=== PATIENT | male | born 1965 | race Caucasian/White ===

== ENCOUNTER 2017-05-14 15:04 | Inpatient (IN) | payer SELFPAY ==
[2017-05-14] MEDS ORDERED: ASPIRIN 81 MG CHEWABLE TABLETS PO ONE (15:10)
[2017-05-14 15:11] VITALS: BMI 30.8
--- NOTE | 2017-05-14 15:11 | PDOC ---
Rapid Medical Evaluation Time Seen by Provider: 05/14/17 15:06 Medical Evaluation: 05/14/17 15:06 I have performed a brief in-person evaluation of this patient. The patient presents with a chief complaint of: neck pain down to arm x "last couple days", chest hurting today, felt weak "couldn't get out of truck", SOB x 1 month Pertinent physical exam findings: uncomfortable appearing, pain with movement to arm I have ordered the following: EKG, labs The patient will proceed to the ED for further evaluation. Discharge Disposition - Diagnosis Chest pain - Referrals - Patient Instructions - Post Discharge Activity
[2017-05-14] MEDS ORDERED: ASPIRIN 81 MG CHEWABLE TABLETS ONE (15:23)
--- NOTE | 2017-05-14 16:29 | EKG ---
Test Reason : Blood Pressure : / mmHG Vent. Rate : 078 BPM Atrial Rate : 078 BPM P-R Int : 130 ms QRS Dur : 150 ms QT Int : 438 ms P-R-T Axes : 047 058 075 degrees QTc Int : 499 ms NORMAL SINUS RHYTHM LEFT BUNDLE BRANCH BLOCK ABNORMAL ECG NO PREVIOUS ECGS AVAILABLE Confirmed by MD Martin, Branden ([id number]) on 05/14/2017 4:28:59 PM Referred By: Confirmed By:Branden Salazar MD
[2017-05-14 16:50] LABS: BASO % 0.4 % (0-2.0); EOS % 0.7 % (0-4.5); HEMATOCRIT 48.8 % (35.4-49); HEMOGLOBIN 16.3 GM/dL (11.7-16.9); LYMPH % 28.4 % (8-40); MCH 31.4 pg (25.7-33.7); MCHC 33.5 g/dl (32.0-35.9); MEAN CELL VOLUME 93.8 fl (80-96); MEAN PLT VOLUME 10.3 fl (7.5-11.1); MONO % 9.2 % (3.8-10.2); NEUT % 61.3 % (42.8-82.8); PLATELET COUNT 246 K/MM3 (134-434); WHITE BLOOD COUNT 12.6 K/mm3 (4.0-10.0)
[2017-05-14 17:02] LABS: INR 1.09 (0.82-1.09); PROTHROMBIN TIME (PATIENT) 12.3 SEC (9.98-11.88)
[2017-05-14 17:15] LABS: CHLORIDE 103 mmol/L (98-107); SODIUM 138 mmol/L (136-145)
[2017-05-14 17:24] LABS: ALK PHOS 72 U/L (45-117); ANION GAP 11 (8-16); BILIRUBIN,TOTAL 0.8 mg/dL (0.2-1.0); BLOOD UREA NITROGEN 16 mg/dL (7-18); CO2 24 mmol/L (21-32); CREATININE 0.9 mg/dL (0.7-1.3); GLUCOSE,RANDOM 79 mg/dL (74-106); MAGNESIUM 2.2 mg/dL (1.8-2.4); SGOT/AST 16 U/L (15-37); SGPT/ALT 33 U/L (12-78); TOT PROT 6.7 g/dl (6.4-8.2)
[2017-05-14] MEDS ORDERED: ALBUTEROL SO4 2.5/IPRATROPIUM 0.5 INH SOL 3 ML VIAL.NEB. NEB ONE (17:38)
[2017-05-14] MEDS: ALBUTEROL SO4 2.5/IPRATROPIUM 0.5 INH SOL 3 ML VIAL.NEB. NEB SCH ×2 (17:47→17:51)
--- NOTE | 2017-05-14 18:15 | PDOC ---
Attending Attestation - Resident Resident Name: Ab Mora - ED Attending Attestation I have performed the following: I have examined & evaluated the patient, The case was reviewed & discussed with the resident, I agree w/resident's findings & plan, Exceptions are as noted - HPI HPI: 05/14/17 18:42 52-year-old male presented to emergency department with a complaint of severe neck and chest pain. Patient states his symptoms began approximately 3 days ago. He's noted a gradual worsening of his neck and chest pain. Pain significant worsened today. No trauma, no fever. No prior episodes like this. Patient is largely unable to raise his head is left arm due to pain - Physicial Exam PE: 05/14/17 18:16 GENERAL: The patient is in no acute distress. HEAD: Normal EYES: PERRLA, EOMI, sclera anicteric, conjunctiva clear. ENT: Ears normal, nares patent, oropharynx clear without exudates. Moist mucous membranes. NECK: Patient seated forward with his neck, no swelling, pt is tender, pt is unable to move LUNGS: inspiratory and expiratory wheezing through out HEART:Regular rate and rhythm, normal S1 and S2 without murmur, rub or gallop. ABDOMEN: Soft, nontender, normoactive bowel sounds. No guarding, no rebound. EXTREMITIES: Normal range of motion, no edema. No clubbing or cyanosis. No erythema, or tenderness. NEUROLOGICAL: Cranial nerves II through XII grossly intact. Normal speech. No focal neurological deficits. MUSCULOSKELETAL: Back non-tender to palpation, no CVA tenderness SKIN: Warm, Dry, normal turgor, no rashes or lesions noted. 05/14/17 18:46 - Medical Decision Making 05/14/17 18:48 52 yo M presenting to the ER with severe neck pain Unclear etiology DD: Musculoskeletal pain, torticolis, Carotid dissection, abscess Will do Labs EKG CTA chest and neck Laboratory Tests 05/14/17 05/14/17 05/14/17 15:36 15:36 15:36 WBC 12.6 H Hgb 16.3 Hct 48.8 Plt Count 246 INR 1.09 Sodium 138 Potassium 4.0 Chloride 103 Carbon Dioxide 24 BUN 16 Creatinine 0.9 Random Glucose 79 Troponin I 0.03 B-Natriuretic Peptide 05/14/17 16:22 WBC Hgb Hct Plt Count INR Sodium Potassium Chloride Carbon Dioxide BUN Creatinine Random Glucose Troponin I B-Natriuretic Peptide 2017.35 H EKG:SR at 78, LBBB No old EKG for comparison Awaiting CT scans Pt will need to be admitted Signed out to Dr Mckeon Pending CT scans Clinical impression: probable pneumonia, initial presentation vs CHF, initial presentation Chest/neck pain, initial presentation
[2017-05-14] MEDS ORDERED: ACETAMINOPHEN 325 MG TABLET (FP) PO ONE (18:26)
--- NOTE | 2017-05-14 18:26 | PDOC ---
History of Present Illness - General Chief Complaint: Pain, Acute Stated Complaint: CHEST PAIN Time Seen by Provider: 05/14/17 15:06 History Source: Patient Exam Limitations: No Limitations - History of Present Illness Initial Comments: 05/14/17 18:14 Patient is a 52M with history of tobacco abuse, prior hospitalization for pneumonia (~5 years ago) and questionable history of CHF (patient says that he was told something about his heart and 20%) here today complaining of neck pain that radiates to his chest and left arm. The pain is worse with coughing, inspiration, palpitation and movement of his arm. Patient works as a tow truck driver. Denies history of blood clots, leg swelling, nausea, vomiting, fevers and chills. He states that he looked unwell enough that his co-workers took him off the job and told him to go to the hospital. Did not receive a flu shot this year. Past History - Past Medical History Allergies/Adverse Reactions: Allergies Allergy/AdvReac Type Severity Reaction Status Date / Time No Known Allergies Allergy Verified 05/14/17 15:10 Cardiac Disorders: Yes (?) COPD: No - Surgical History Abdominal Surgery: Yes Appendectomy: Yes - Suicide/Smoking/Psychosocial Hx Smoking History: Current every day smoker Number of Cigarettes Smoked Daily: 10 Information on smoking cessation initiated: No Hx Alcohol Use: Yes Drug/Substance Use Hx: No Substance Use Type: Alcohol Review of Systems - Review of Systems Comments:: 05/14/17 18:29 GENERAL/CONSTITUTIONAL: No fever or chills. No weakness. HEAD, EYES, EARS, NOSE AND THROAT: No change in vision. No sore throat. CARDIOVASCULAR: Positive for chest pain and shortness of breath. RESPIRATORY: Positive for cough, wheezing. Negative for hemoptysis. GASTROINTESTINAL: No nausea, vomiting, diarrhea or constipation. GENITOURINARY: No dysuria, frequency, or change in urination. MUSCULOSKELETAL: No joint or muscle swelling or pain. Positive for neck and shoulder pain. SKIN: No rash NEUROLOGIC: No headache, vertigo, loss of consciousness, or change in strength/ sensation. ENDOCRINE: No increased thirst. No abnormal weight change HEMATOLOGIC/LYMPHATIC: No anemia, easy bleeding, or history of blood clots. ALLERGIC/IMMUNOLOGIC: No hives or skin allergy. *Physical Exam - Vital Signs Last Vital Signs Temp Pulse Resp BP Pulse Ox 98.4 F 83 18 161/97 98 05/14/17 15:07 05/14/17 15:07 05/14/17 15:07 05/14/17 15:07 05/14/17 15:07 - Physical Exam Comments: 05/14/17 18:29 GENERAL: Awake, alert, and fully oriented, coughing, not holding head straight HEAD: No signs of trauma, normocephalic, atraumatic EYES: PERRLA, EOMI, sclera anicteric, conjunctiva clear ENT: Auricles normal inspection, hearing grossly normal, nares patent, oropharynx clear without exudates. Moist mucosa NECK: Normal ROM, supple, no lymphadenopathy, JVD, or masses, tender along lateral neck, no midline tenderness in posterior or anterior neck LUNGS: No distress, speaks full sentences, decreased breath sounds bilaterally with diffuse wheezing HEART: Regular rate and rhythm, normal S1 and S2, no murmurs, rubs or gallops, peripheral pulses normal and equal bilaterally. ABDOMEN: Soft, nontender, normoactive bowel sounds. No guarding, no rebound. No masses EXTREMITIES: Normal inspection, Normal range of motion, trace pitting edema. No clubbing or cyanosis. NEUROLOGICAL: Cranial nerves II through XII grossly intact. Normal speech, normal gait, no focal sensorimotor deficits SKIN: Warm, Dry, normal turgor, no rashes or lesions noted. ED Treatment Course - LABORATORY CBC & Chemistry Diagram: 05/14/17 15:36 05/14/17 15:36 - ADDITIONAL ORDERS Additional order review: Laboratory Results 05/14/17 05/14/17 05/14/17 16:22 15:36 15:36 PT with INR 12.30 H INR 1.09 Sodium 138 Potassium 4.0 Chloride 103 Carbon Dioxide 24 Anion Gap 11 BUN 16 Creatinine 0.9 Creat Clearance w eGFR > 60 Random Glucose 79 Calcium 8.0 L Magnesium 2.2 Total Bilirubin 0.8 AST 16 ALT 33 Alkaline Phosphatase 72 Creatine Kinase 140 Troponin I 0.03 B-Natriuretic Peptide 2017.35 H Total Protein 6.7 Albumin 4.0 05/14/17 15:36 RBC 5.20 MCV 93.8 MCHC 33.5 RDW 13.0 MPV 10.3 Neutrophils % 61.3 Lymphocytes % 28.4 Monocytes % 9.2 Eosinophils % 0.7 Basophils % 0.4 - Medications Given in the ED: ED Medications Discontinued Medications Generic Name Dose Route Start Last Admin Trade Name Fili PRN Reason Stop Dose Admin Aspirin 162 mg 05/14/17 15:10 05/14/17 15:31 Asa - PO 05/14/17 15:11 162 mg ONCE ONE Administration Medical Decision Making - Medical Decision Making 05/14/17 18:41 Patient is 52M with history of pneumonia admission, possible CHF and tobacco abuse here today complaining of chest pain neck pain. Vital signs stable and normal. Exam notable for decreased air movement, wheezing, and cough. No signs of erythema or midline neck tenderness. Neck pain and chest pain is worse with palpitation, but patient is refusing to straighten neck. Labs show: Laboratory Tests 05/14/17 05/14/17 05/14/17 15:36 15:36 15:36 WBC 12.6 H Hgb 16.3 Hct 48.8 Plt Count 246 INR 1.09 Troponin I 0.03 B-Natriuretic Peptide 05/14/17 16:22 WBC Hgb Hct Plt Count INR Troponin I B-Natriuretic Peptide 2017.35 H CBC shows leukocytosis. BNP positive to 2k. Trop neg. CMP otherwise unremarkable. EKG shows LBBB morphology with normal sinus rhythm. Rate 78. Normal axis. Sgarbossa negative. Has no prior EKG to compare to. Will evaluate further with CTA chest and CT of soft tissues of neck with contrast. Signed out to Dr Hughes. *DC/Admit/Observation/Transfer Diagnosis at time of Disposition: Chest pain - Referrals - Patient Instructions - Post Discharge Activity
[2017-05-14] MEDS ORDERED: ACETAMINOPHEN 325 MG TABLET (FP) ONE (18:32)
[2017-05-14] MEDS ORDERED: METHOCARBAMOL 500 MG TABLET PO ONE (18:50)
[2017-05-14] MEDS ORDERED: morphine CARPU-JECT 4 MG/1 ML DISP.SYRIN IVPUSH ONE (18:50)
[2017-05-14] MEDS ORDERED: MORPHINE SULFATE 10 MG/1 ML *VIAL ONE ×2 (19:46→22:19)
[2017-05-14] MEDS ORDERED: METHOCARBAMOL 500 MG TABLET ONE (19:46)
--- NOTE | 2017-05-14 21:07 | PDOC ---
*Physical Exam - Vital Signs Last Vital Signs Temp Pulse Resp BP Pulse Ox 98.4 F 88 15 132/80 93 L 05/14/17 15:07 05/14/17 20:04 05/14/17 20:04 05/14/17 20:04 05/14/17 20:04 - Physical Exam Comments: 05/14/17 21:11 General Appearance: Nourished. No Apparent Distress HEENT: No Pharyngeal Erythema, Tonsillar Exudate, Tonsillar Erythema Neck: No Cervical Lymphadenopathy Respiratory/Chest: Lungs Clear, Normal Breath Sounds. No Crackles, Rales, Rhonchi, Wheezing Cardiovascular: Regular Rhythm, Regular Rate. No Murmur, Gallops, Rubs Gastrointestinal/Abdominal: Normal Bowel Sounds, Soft. No Guarding, Rebound, Tenderness Musculoskeletal: No CVA Tenderness Extremity: Normal Capillary Refill Integumentary: Normal Color, Dry, Warm Neurologic: Fully Oriented, Alert, Normal Mood/Affect, Normal Response, ED Treatment Course - LABORATORY CBC & Chemistry Diagram: 05/14/17 15:36 05/14/17 15:36 - ADDITIONAL ORDERS Additional order review: Laboratory Results 05/14/17 05/14/17 05/14/17 16:22 15:36 15:36 PT with INR 12.30 H INR 1.09 Sodium 138 Potassium 4.0 Chloride 103 Carbon Dioxide 24 Anion Gap 11 BUN 16 Creatinine 0.9 Creat Clearance w eGFR > 60 Random Glucose 79 Calcium 8.0 L Magnesium 2.2 Total Bilirubin 0.8 AST 16 ALT 33 Alkaline Phosphatase 72 Creatine Kinase 140 Troponin I 0.03 B-Natriuretic Peptide 2017.35 H Total Protein 6.7 Albumin 4.0 05/14/17 15:36 RBC 5.20 MCV 93.8 MCHC 33.5 RDW 13.0 MPV 10.3 Neutrophils % 61.3 Lymphocytes % 28.4 Monocytes % 9.2 Eosinophils % 0.7 Basophils % 0.4 - Medications Given in the ED: ED Medications Discontinued Medications Generic Name Dose Route Start Last Admin Trade Name Freq PRN Reason Stop Dose Admin Acetaminophen 650 mg 05/14/17 18:26 05/14/17 18:37 Tylenol - PO 05/14/17 18:27 650 mg ONCE ONE Administration Albuterol/Ipratropium 1 amp 05/14/17 17:45 05/14/17 17:51 Duoneb - NEB 05/14/17 18:31 1 amp Q15M DENIA Administration Aspirin 162 mg 05/14/17 15:10 05/14/17 15:31 Asa - PO 05/14/17 15:11 162 mg ONCE ONE Administration Methocarbamol 500 mg 05/14/17 18:50 05/14/17 19:52 Robaxin - PO 05/14/17 18:51 500 mg ONCE ONE Administration Morphine Sulfate 4 mg 05/14/17 18:50 05/14/17 19:51 Morphine Injection - IVPUSH 05/14/17 18:51 4 mg ONCE ONE Administration Progress Note - Progress Note Progress Note: The patient is a 52 year old male with a reported history of chf and possible copd who presents for evaluation of chest pain, and neck pain. Patient is pending a ct of the neck and chest. Plan is to admit following imaging results. Medical Decision Making - Medical Decision Making 05/14/17 21:13 CT neck and chest is unremarkable as read by our radiologist. We discussed the case with the hospitalist team who accepted the patient for admission. *DC/Admit/Observation/Transfer Diagnosis at time of Disposition: Chest pain Qualifiers: Chest pain type: unspecified Qualified Code(s): R07.9 - Chest pain, unspecified - Discharge Dispostion Condition at time of disposition: Guarded Admit: Yes - Referrals - Patient Instructions - Post Discharge Activity
[2017-05-14] MEDS ORDERED: DEXAMETHASONE SOD PHOSPHATE 10 MG/1 ML VIAL IVPUSH ONE (21:18)
[2017-05-14] MEDS ORDERED: SODIUM CHLORIDE FOR INHALATION 3 ML VIAL.NEB IH ONE (21:18)
[2017-05-14] MEDS ORDERED: DEXAMETHASONE SOD PHOSPHATE 10 MG/1 ML VIAL ONE (21:34)
[2017-05-14] MEDS ORDERED: morphine CARPU-JECT 2 MG/1 ML DISP.SYRIN IVPUSH ONE (21:49)
--- NOTE | 2017-05-14 22:13 | PN ---
Teaching Attending Note Name of Resident: Ioana Sloan ATTENDING PHYSICIAN STATEMENT I saw and evaluated the patient. I reviewed the resident's note and discussed the case with the resident. I agree with the resident's findings and plan as documented. SUBJECTIVE: 52 M with pmhx of CHF, COPD? who presents with neck pain that radiates down to his arm. Also notes associated shortness of breath on exertion one month in duration. States his neck pain started Saturday. He does not note any injuries. States pain radiated to his left arm, chest area. States several years ago he was admitted to the hospital for pneumonia. Also, notes they found he had a cardiac problem at that time and a echo was done which showed a EF of 20%. Denies any chest pain, pressure, or shortness of breath currently. OBJECTIVE: Physical: VS: Vital Signs Period Temp Pulse Resp BP Sys/Sanchez Pulse Ox Last 24 Hr 98.4 F 83-88 15-18 132-161/80-97 93-98 GEN: NAD, Resting in bed, AAOX3, Able to speak full sentences HEENT: NCAT, PERRL, throat without erythema or exudates CARD: RRR S1, S2 RESP: Bilateral Expiratory Wheezing, All carreon ABD: BSx4, NTD to palpation EXT: - C/C/E CBCD WBC 12.6 K/mm3 (4.0-10.0) H 05/14/17 15:36 RBC 5.20 M/mm3 (4.00-5.60) 05/14/17 15:36 Hgb 16.3 GM/dL (11.7-16.9) 05/14/17 15:36 Hct 48.8 % (35.4-49) 05/14/17 15:36 MCV 93.8 fl (80-96) 05/14/17 15:36 MCHC 33.5 g/dl (32.0-35.9) 05/14/17 15:36 RDW 13.0 % (11.9-15.9) 05/14/17 15:36 Plt Count 246 K/MM3 (134-434) 05/14/17 15:36 MPV 10.3 fl (7.5-11.1) 05/14/17 15:36 CMP Sodium 138 mmol/L (136-145) 05/14/17 15:36 Potassium 4.0 mmol/L (3.5-5.1) 05/14/17 15:36 Chloride 103 mmol/L (98-107) 05/14/17 15:36 Carbon Dioxide 24 mmol/L (21-32) 05/14/17 15:36 Anion Gap 11 (8-16) 05/14/17 15:36 BUN 16 mg/dL (7-18) 05/14/17 15:36 Creatinine 0.9 mg/dL (0.7-1.3) 05/14/17 15:36 Creat Clearance w eGFR > 60 (>60) 05/14/17 15:36 Random Glucose 79 mg/dL (74-106) 05/14/17 15:36 Calcium 8.0 mg/dL (8.5-10.1) L 05/14/17 15:36 Total Bilirubin 0.8 mg/dL (0.2-1.0) 05/14/17 15:36 AST 16 U/L (15-37) 05/14/17 15:36 ALT 33 U/L (12-78) 05/14/17 15:36 Alkaline Phosphatase 72 U/L (45-117) 05/14/17 15:36 Total Protein 6.7 g/dl (6.4-8.2) 05/14/17 15:36 Albumin 4.0 g/dl (3.4-5.0) 05/14/17 15:36 CARDIAC ENZYMES Creatine Kinase 140 IU/L (39-308) 05/14/17 15:36 Troponin I 0.03 ng/ml (0.00-0.05) 05/14/17 15:36 EKG: NSR LBBB, [id number] CT CHEST:No PE, No acute Pathology, Atherosclerotic Carotid Artery calcification , C3-C4 and C5-C6 central canal stenosis which is probably moderate to marked. ASSESSMENT AND PLAN: 52 M with pmhx of CHF, COPD? who presents with neck pain that radiates down to his arm/chest and with shortness of breath, being admitted for ACS rule out and for neck pain evaluation. 1.) Chest Pain - RO ACS - HEART 3 - Trend Trop/EKG - Morphine/Nitro prn CP - Avoid BB as hx. of Cocaine use - Echo - Cardio consult - Lipid Panel/A1c 2.) Chronic Congestive Heart Failure ?Systolic - Does not look clinically overloaded - NA/Fluid Restrict - Daily weights - ECHO 3.) Carotid Artery Atherosclerosis - Carotid US 4.) Neck Pain - MRI Neck 5.)?COPD - Nebs PRN - Prednisone - Pulmonary consult 6.) Dvt Ppx - Heparin [address] in Smart GPS Backpack-Tele
[2017-05-14] MEDS ORDERED: NITROGLYCERIN SUBLINGUAL 1/150 0.4 MG TAB SL PRN (22:17)
[2017-05-14 22:56] LABS: METHADONE, UR NEGATIVE ng/ml (CUTOFF=300); PHENCYCLIDINE,URINE NEGATIVE ng/ml (CUTOFF=25); URINE AMPHETAMINES NEGATIVE ng/ml (CUTOFF=500); URINE BARBITURATES NEGATIVE ng/ml (CUTOFF=200); URINE BENZODIAZEPINES NEGATIVE ng/ml (CUTOFF=200)
--- NOTE | 2017-05-14 22:56 | HP ---
CHIEF COMPLAINT: L sided CP radiating to neck and arm x3 days Worsening SOB x1 month PCP: Brady Ware HISTORY OF PRESENT ILLNESS: The pt is a 52 yo chronic and current M smoker and cocaine user, with psoriasis, poor health care follow up for likely CHF (20% EF ) presenting with a 3 day hx of L sided neck pain radiating to chest and arm and one month hx of worsening SOB. 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 Pt felt like his neck to upper extremely was numb from the pain. No facial droop, no hx of seizures, no headaches, no hx of similar episode in the past. Pt described transient poor vision in his L eye today during the peak of the pain. Pt also c/o of SOB that has worsened over the past month, worse with climbing of stairs. He has orthopnea and paraxoysmal nocturnal dyspnea. Pt has had a "smoker's cough" for a while but noticed a new stridor-like sound with the cough today. No hx of fever, no known allergies, no contact with someone with the flu. The cough is non productive. The pt denies tick bites or residence in the [facility]. ER course was notable for: (1) CT /chest CTA- R/O PE- no PE (2) WBC-12.6 (3)BNP-2017.35 4) Morphine, ASA, tylenol, Duonebs, decdron, methocarbamol, Recent Travel: None PAST MEDICAL HISTORY: History of colonic polyps (2006)- never followed up Likely poor EF-20% CHF-poor follow up PAST SURGICAL HISTORY: Social History: Smokinpacks/day till last year, currently about 10cigs/day Alcohol: Social- beers Drugs: Cocaine, last use Saturday (3 days ago) Family History: Colon cancer in father Allergies No Known Allergies Allergy (Verified 05/14/17 15:10) HOME MEDICATIONS: Home Medications Medication Instructions Recorded NK [No Known Home Medication] 05/14/17 REVIEW OF SYSTEMS CONSTITUTIONAL: Absent: fever, chills, diaphoresis, generalized weakness, malaise, loss of appetite, weight change HEENT: Absent: rhinorrhea, nasal congestion, throat pain, throat swelling, difficulty swallowing, mouth swelling, ear pain, eye pain, visual changes CARDIOVASCULAR: Absent: chest pain, syncope, palpitations, irregular heart rate, lightheadedness , peripheral edema RESPIRATORY: cough+, shortness of breath+, dyspnea with exertion+, orthopnea+, wheezing+, stridor+, hemoptysis GASTROINTESTINAL: Absent: abdominal pain, abdominal distension, nausea, vomiting, diarrhea, constipation, melena, hematochezia GENITOURINARY: Absent: dysuria, frequency, urgency, hesitancy, hematuria, flank pain, genital pain MUSCULOSKELETAL: neck pain+ Absent: myalgia, arthralgia, joint swelling, back pain, SKIN: Absent: rash, itching, pallor HEMATOLOGIC/IMMUNOLOGIC: Absent: easy bleeding, easy bruising, lymphadenopathy, frequent infections ENDOCRINE: Absent: unexplained weight gain, unexplained weight loss, heat intolerance, cold intolerance NEUROLOGIC: Absent: headache, focal weakness or paresthesias, dizziness, unsteady gait, seizure, mental status changes, bladder or bowel incontinence PSYCHIATRIC: Absent: anxiety, depression, suicidal or homicidal ideation, hallucinations. PHYSICAL EXAMINATION Vital Signs - 24 hr 05/14/17 05/14/17 15:07 20:04 Temperature 98.4 F Pulse Rate 83 Pulse Rate [ 88 Apical] Respiratory 18 15 Rate Blood Pressure 161/97 Blood Pressure 132/80 [Left Arm] O2 Sat by Pulse 98 93 L Oximetry (%) CBC, BMP 05/14/17 15:36 05/14/17 15:36 GENERAL: Awake, alert, and fully oriented, in mild respiratory distress, with stridorlike sounds. HEAD: Normal with no signs of trauma. EYES: Pupils equal, round and reactive to light, extraocular movements intact, sclera anicteric, conjunctiva clear. EARS, NOSE, THROAT: Psoriattic rashes behind ear, nares patent, oropharynx clear without exudates. Moist mucous membranes. NECK: Tense L side of neck, with mild tenderness. No lymphadenopathy, no JVD, or masses. LUNGS: Breath sounds reduced more at lung bases, Scattered wheezes. HEART: Regular rate and rhythm, normal S1 and S2 . ABDOMEN: Full, firm, nontender, normoactive bowel sounds, no guarding, no rebound, no masses. MUSCULOSKELETAL: Tense L neck. Normal range of motion of all extremities. Scaly erythematous rashes both elbows UPPER EXTREMITIES: 2+ pulses, warm, well-perfused. Scaly erythematous rashes both elbows. LOWER EXTREMITIES: 2+ pulses, warm, well-perfused. No calf tenderness. No peripheral edema. NEUROLOGICAL: Cranial nerves II-XII intact. No facial droop. Strength 5/5 and tone 2+ globally. Normal sensation. Normal speech. Normal gait. Mild finger tremors PSYCHIATRIC: Cooperative. Good eye contact. Appropriate mood and affect. Laboratory Results - last 24 hr 05/14/17 05/14/17 05/14/17 15:36 15:36 15:36 WBC 12.6 H RBC 5.20 Hgb 16.3 Hct 48.8 MCV 93.8 MCH 31.4 MCHC 33.5 RDW 13.0 Plt Count 246 MPV 10.3 Neutrophils % 61.3 Lymphocytes % 28.4 Monocytes % 9.2 Eosinophils % 0.7 Basophils % 0.4 PT with INR 12.30 H INR 1.09 Sodium 138 Potassium 4.0 Chloride 103 Carbon Dioxide 24 Anion Gap 11 BUN 16 Creatinine 0.9 Creat Clearance w eGFR > 60 Random Glucose 79 Calcium 8.0 L Magnesium 2.2 Total Bilirubin 0.8 AST 16 ALT 33 Alkaline Phosphatase 72 Creatine Kinase 140 Troponin I 0.03 B-Natriuretic Peptide Total Protein 6.7 Albumin 4.0 05/14/17 16:22 WBC RBC Hgb Hct MCV MCH MCHC RDW Plt Count MPV Neutrophils % Lymphocytes % Monocytes % Eosinophils % Basophils % PT with INR INR Sodium Potassium Chloride Carbon Dioxide Anion Gap BUN Creatinine Creat Clearance w eGFR Random Glucose Calcium Magnesium Total Bilirubin AST ALT Alkaline Phosphatase Creatine Kinase Troponin I B-Natriuretic Peptide 2017.35 H Total Protein Albumin ASSESSMENT/PLAN: 52 yo chronic and current M smoker and drug user (cocaine), with psoriasis, poor health care follow up for likely CHF (20% EF) presenting with a 3 day hx of L sided neck pain radiating to chest and arm and one month hx of worsening SOB Likely CHF exacerbation: SOB on exertion, PND, orthopnea, BNP-2017 Poor cardiac hx and follow up Likely EF-20% in past Likely cardiac wheeze iv lasix 40mg stat-given Cardio consult- Dr Winter ECHO Trend trops- 0.03>>0.02 Repeat EKG am Cardiac monitoring Strict ins and outs Sodium controlled diet Chest pain: R/O ACS with LBBB (no previous to compare with) Nitroglycerin -given iv morphine given NC- O2 as needed Cardio consult- Dr Winter ECHO Trend trops- 0.03>>0.02 Repeat EKG am Cardiac monitoring Lipid panel ASA-162 stat given Daily ASA 81 mg Likely COPD exacerbation: Chronic and current smoker Never been diagnosed with COPD Upper respiratory stridor noted ABG- stat- mild resp. acidosis CXR Duonebs Received decadron in Ed O2 to keep saturation > 92% Pulm consult-Dr Stevenson Tabtk prednisone 40mg daily Iv benadryl 25mg stat-given For likely PFTs as outpatient Current smoking and drug use disorder Hx of cocaine use Positive Utox for cocaine Current smoker Counselling on drug use and smoking cessation For rehab counseling as an outpatient Avoid BB in setting of recent cocaine use Neck pain: Tense neck muscles, Negative Ct neck MRI of neck to R/O abscess received methocarbamol in ED Tylenol 650mg Q6H as needed carotid artery atherosclerois- carotid US Hypertension: Nitroglycerin-given Monitor s/p iv lasix Avoid BB in setting of recent cocaine use Leucocytosis: WBC-12.6 Could be reactive R/o URTI Urine AG Urine Cx UA Blood cx Monitor off AB for now FEN: No fluids at this time Monitor lytes and replete as needed Sodium restricted diet Prophylaxis: SQ heparin 5000 iu tid Dispo: Tele Visit type - Emergency Visit Emergency Visit: Yes ED Registration Date: 05/14/17 Care time: The patient presented to the Emergency Department on the above date and was hospitalized for further evaluation of their emergent condition. - New Patient This patient is new to me today: Yes Date on this admission: 05/15/17 - Critical Care Critical Care patient: No
[2017-05-14 22:57] LABS: COCAINE, UR POSITIVE ng/ml (CUTOFF=300)
[2017-05-14 22:58] LABS: OPIATES, URI POSITIVE ng/ml (CUTOFF=300)
[2017-05-14 23:05] LABS: ARTERIAL BLD GAS O2 SATURATION 91.8 % (90-98.9); ARTERIAL BLOOD GAS BASE EXCESS 1.1 meq/l (-2-2); ARTERIAL BLOOD GAS PCO2 48.1 mmHg (35-45); ARTERIAL BLOOD GAS PO2 64.3 mmHg (80-100); ARTERIAL BLOOD GAS pH 7.36 (7.35-7.45)
[2017-05-14 23:07] LABS: ALLENS TEST POSITIVE
[2017-05-14 23:24] LABS: URINE APPEARANCE CLEAR; URINE BILIRUBIN NEGATIVE (NEGATIVE); URINE COLOR YELLOW; URINE GLUCOSE (UA) NEGATIVE (NEGATIVE)
[2017-05-14 23:25] LABS: URINE BLOOD NEGATIVE (NEGATIVE); URINE KETONE NEGATIVE (NEGATIVE); URINE LEUK ESTERASE TRACE (NEGATIVE); URINE NITRITE NEGATIVE (NEGATIVE); URINE PROTEIN NEGATIVE (NEGATIVE); URINE UROBILINOGEN NORMAL mg/dL (0.2-1.0)
[2017-05-14 23:27] LABS: EPI CELLS RARE /HPF (FEW)
[2017-05-15] MEDS ORDERED: ALBUTEROL SO4 2.5/IPRATROPIUM 0.5 INH SOL 3 ML VIAL.NEB. NEB PRN (00:10)
[2017-05-15] MEDS: ALBUTEROL SO4 2.5/IPRATROPIUM 0.5 INH SOL 3 ML VIAL.NEB. NEB SCH ×4 (02:17→14:02)
[2017-05-15] MEDS ORDERED: ALBUTEROL SO4 2.5/IPRATROPIUM 0.5 INH SOL 3 ML VIAL.NEB. NEB ONE ×3 (02:20→09:05)
[2017-05-15] MEDS ORDERED: ACETAMINOPHEN 325 MG TABLET (FP) ONE (02:21)
[2017-05-15] MEDS: HEPARIN NA (PORCINE) 5,000 UNITS/ML 1ML VIAL SQ SCH ×3 (05:47→22:18)
[2017-05-15] MEDS ORDERED: HEPARIN NA (PORCINE) 5,000 UNITS/ML 1ML VIAL ONE ×2 (06:09→13:37)
[2017-05-15 07:26] LABS: BASO % 0.2 % (0-2.0); HEMATOCRIT 47.6 % (35.4-49); HEMOGLOBIN 15.7 GM/dL (11.7-16.9); LYMPH % 13.6 % (8-40); MCH 30.8 pg (25.7-33.7); MCHC 32.9 g/dl (32.0-35.9); MEAN CELL VOLUME 93.5 fl (80-96); MEAN PLT VOLUME 9.4 fl (7.5-11.1); NEUT % 83.2 % (42.8-82.8); PLATELET COUNT 249 K/MM3 (134-434); RBC 5.09 M/mm3 (4.00-5.60); RDW 12.8 % (11.9-15.9)
[2017-05-15 07:47] LABS: CHLORIDE 102 mmol/L (98-107); POTASSIUM 4.7 mmol/L (3.5-5.1); SODIUM 137 mmol/L (136-145)
[2017-05-15 07:52] LABS: HDL CHOLESTEROL 42 mg/dL (40-60); LDL CHOLESTEROL (ONLY SJRH) 100 mg/dL (5-100)
--- NOTE | 2017-05-15 08:00 | MSN ---
Progress Note (short form) - Note Progress Note: Subjective: Patient was seen this morning and endorses 10/10 pain on his left UE, left chest , left neck up to his left anabaptist. Patient states the pain up his anabaptist is new from yesterday. Patient also states he has difficulty finding his breath for the past month with walking, wakes up in the middle of the night gasping for air. Patient also occasionally has cramping of his calf when he is lying down at night but improves once he stands up for a few minutes. Patient states he had one episode of bright red blood on his stool 6 months ago but has not gone to the doctor and has not had any episodes since. Patient denies N/V/D, crushing chest pain. Objective: Last Vital Signs Temp Pulse Resp BP Pulse Ox 98.6 F 68 17 119/85 93 L 05/15/17 06:03 05/15/17 06:03 05/15/17 06:03 05/15/17 06:03 05/15/17 06:03 Intake & Output 05/12/17 05/13/17 05/14/17 05/15/17 23:59 23:59 23:59 23:59 Weight 215 lb General: Patient is an obese man lying down, appears to be in mild distress, gets SOB with talking and pain with neck movement. HEENT: PERRLA. no lymphadenopathy appreciated. JVD could not be appreciated due to body habitus and neck pain. wheezing heard on neck auscultation. Heart: distant heart sound, RRR, no rubs, murmurs or gallops appreciated. Lungs: diffuse wheezing and rhonchi throughout. Abdomen: protuberant, firm. some tenderness on the RUQ with deep palpation. Musculoskeletal: LE strength 5/5 b/l. Limited range of motion of left UE due to pain. Neck motion limited due to pain, worse when turning left. Right UE motor 5 /5 throughout. Extremities: 2+ pulses b/l on UE and LE. scaly erythematous rash on both elbows. no edema noted. CBC 05/15/17 06:57 CMP Sodium 137 mmol/L (136-145) 05/15/17 06:57 Potassium 4.7 mmol/L (3.5-5.1) 05/15/17 06:57 Chloride 102 mmol/L (98-107) 05/15/17 06:57 Carbon Dioxide 25 mmol/L (21-32) 05/15/17 06:57 Anion Gap 10 (8-16) 05/15/17 06:57 BUN 20 mg/dL (7-18) H D 05/15/17 06:57 Creatinine 1.1 mg/dL (0.7-1.3) D 05/15/17 06:57 Creat Clearance w eGFR > 60 (>60) 05/15/17 06:57 Random Glucose 147 mg/dL (74-106) H D 05/15/17 06:57 Calcium 9.0 mg/dL (8.5-10.1) 05/15/17 06:57 Phosphorus 3.9 mg/dL (2.5-4.9) 05/15/17 06:57 Magnesium 2.6 mg/dL (1.8-2.4) H 05/15/17 06:57 Total Bilirubin 0.6 mg/dL (0.2-1.0) D 05/15/17 06:57 AST 20 U/L (15-37) D 05/15/17 06:57 ALT 36 U/L (12-78) 05/15/17 06:57 Alkaline Phosphatase 72 U/L (45-117) 05/15/17 06:57 Creatine Kinase 133 IU/L (39-308) 05/14/17 22:31 Troponin I 0.02 ng/ml (0.00-0.05) D 05/14/17 22:31 B-Natriuretic Peptide 2017.35 pg/ml (5-125) H 05/14/17 16:22 Total Protein 7.3 g/dl (6.4-8.2) 05/15/17 06:57 Albumin 3.9 g/dl (3.4-5.0) 05/15/17 06:57 Triglycerides 58 mg/dL (35-160) 05/15/17 06:57 Cholesterol 157 mg/dL (50-200) 05/15/17 06:57 Total LDL Cholesterol 100 mg/dL (5-100) 05/15/17 06:57 HDL Cholesterol 42 mg/dL (40-60) 05/15/17 06:57 Abnormal Lab Results 05/14/17 05/14/17 05/14/17 15:36 15:36 15:36 WBC 12.6 H Neutrophils % Monocytes % PT with INR 12.30 H ABG pCO2 at Pt Temp ABG pO2 at Pt Temp ABG HCO3 Calcium 8.0 L B-Natriuretic Peptide 05/14/17 05/14/17 05/15/17 16:22 22:35 06:57 WBC Neutrophils % 83.2 H D Monocytes % 3.0 L PT with INR ABG pCO2 at Pt Temp 48.1 H ABG pO2 at Pt Temp 64.3 L ABG HCO3 26.7 H Calcium B-Natriuretic Peptide 2017.35 H Current Medications Albuterol/Ipratropium (Duoneb -) 1 amp NEB Q4HPO [facility] Last Admin: 05/15/17 05:46 Dose: 1 amp Albuterol/Ipratropium (Duoneb -) 1 amp NEB Q6H PRN PRN Reason: SHORTNESS OF BREATH Aspirin (Ecotrin -) 81 mg PO DAILY [facility] Furosemide (Lasix Injection -) 40 mg IVPUSH DAILY [facility] Heparin Sodium (Porcine) (Heparin -) 5,000 unit SQ TID [facility] Last Admin: 05/15/17 05:47 Dose: 5,000 unit Nitroglycerin (Nitrostat -) 0.4 mg SL Q5M PRN PRN Reason: FOR CHEST PAIN Prednisone (Deltasone -) 40 mg PO DAILY [facility] Imaging: CXR 05/15 No evidence of active pulmonary disease. Carotid doppler US 05/15 A small amount of atherosclerotic plaque is identified at the carotid bifurcations bilaterally. Mild atherosclerotic disease with no evidence of hemodynamically significant stenoses. Neck CT with contrast 05/[address] evidence of acute pathology. Atherosclerotic carotid artery calcifications are noted which are probably more prominent than would be expected for the patient's chronologic age. Correlate with clinical risk factors. C3-C4 and C5-C6 central canal stenosis which is probably moderate to marked. Chest CTA 05/[address] evidence of acute pathology. Atherosclerotic carotid artery calcifications are noted which are probably more prominent than would be expected for the patient's chronologic age. Correlate with clinical risk factors. C3-C4 and C5-C6 central canal stenosis which is probably moderate to marked Plan/ Assessment: 52 yo M with an unknown medical history, possible CHF, who presented with severe left sided neck/ chest pain for 3 days and worsening shortness of breath for the past month likely due to undiagnosed COPD, heart failure, cervical stenosis. # chest pain - r/o ACS trops 0.03- 0.02 - EKG shows LBBB, prolonged QTc of 499. - nitroglycerine prn - cardiac monitoring - telemetry - lipid panel wnl - aspirin 81mg po daily - f/u echo # possible CHF vs COPD exacerbation - poor cardiac hx and follow up. states may have EF of 20% - lasix 40mg IVPush daily - cardio consult Dr. Winter -- f/u echo - monitor I&O - ABG shows mild respiratory acidosis - keep O2 sats >92% - pulm consult -Dr. Stevenson, may need PFT outpt - prednisone 40mg qd - duoneb q6h prn # radiating neck pain likely secondary to C3-C6 stenosis - carotid doppler shows mild atherosclerosis on bifurcation, no hemodynamically significant stenosis - neck CT shows moderate C3-C4, C5-C6 central canal stenosis - Cspine MRI, MRA neck. consult neurosurgery - pain control with flexeril, toradol, and morphine # HTN - lasix - avoid BB due to recent cocaine use #polysubstance abuse - membership counselor on smoking cessation, cocaine cessation - nicotine patch #FEN/ppx - F: po fluids - E: electrolytes wnl - N: sodium controlled diet - GI: protonix for GI ppx - DVT prophylaxis: heparin 5000U TID
[2017-05-15 08:10] LABS: CHOLESTEROL 157 mg/dL (50-200); TRIGLYCERIDES 58 mg/dL (35-160)
[2017-05-15 08:13] LABS: ALBUMIN 3.9 g/dl (3.4-5.0); ALK PHOS 72 U/L (45-117); ANION GAP 10 (8-16); BILIRUBIN,TOTAL 0.6 mg/dL (0.2-1.0); BLOOD UREA NITROGEN 20 mg/dL (7-18); CO2 25 mmol/L (21-32); CREATININE 1.1 mg/dL (0.7-1.3); GLUCOSE,RANDOM 147 mg/dL (74-106); MAGNESIUM 2.6 mg/dL (1.8-2.4); PHOSPHOROUS 3.9 mg/dL (2.5-4.9); SGOT/AST 20 U/L (15-37); SGPT/ALT 36 U/L (12-78); TOT PROT 7.3 g/dl (6.4-8.2)
[2017-05-15] MEDS: ASPIRIN COATED 81 MG TABLET.EC PO SCH (09:44)
[2017-05-15] MEDS: FUROSEMIDE 40 MG/4 ML INJECTABLE VIAL IVPUSH SCH (09:44)
[2017-05-15] MEDS ORDERED: predniSONE 20 MG TABLET (UD) PO SCH (10:00)
[2017-05-15] MEDS ORDERED: AZITHROMYCIN IVPB 500 MG in DEXTROSE 5%-WATER - 250 ML IVPB SCH (10:00)
--- NOTE | 2017-05-15 10:06 | CON.CARD ---
Consult Consult Specialty:: cardiology - History of Present Illness Chief Complaint: chest pain History of Present Illness: Patient is a 52M with history of tobacco abuse, prior hospitalization for pneumonia (~5 years ago) and questionable history of CHF (patient says that he was told something about his heart and 20%) here today complaining of neck pain that radiates to his chest and left arm. The pain is worse with coughing, inspiration, palpitation and movement of his arm. 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 Denies history of blood clots, leg swelling, nausea, vomiting, fevers and chills. He states that he looked unwell enough that his co-workers took him off the job and told him to go to the hospital. Did not receive a flu shot this year. - History Source History Provided By: Patient, Medical Record - Past Medical History Cardio/Vascular: Yes: CHF - Alcohol/Substance Use Hx Alcohol Use: Yes - Smoking History Smoking history: Current every day smoker Aproximately how many cigarettes per day: 10 Home Medications - Allergies Allergies/Adverse Reactions: Allergies Allergy/AdvReac Type Severity Reaction Status Date / Time No Known Allergies Allergy Verified 05/14/17 15:10 - Home Medications Home Medications: Ambulatory Orders NK [No Known Home Medication] 05/14/17 Review of Systems - Review of Systems Constitutional: reports: No Symptoms Eyes: reports: No Symptoms HENT: reports: No Symptoms Neck: reports: No Symptoms Cardiovascular: reports: Chest Pain Respiratory: reports: No Symptoms Gastrointestinal: reports: No Symptoms Genitourinary: reports: No Symptoms Breasts: reports: No Symptoms Reported Musculoskeletal: reports: No Symptoms Integumentary: reports: No Symptoms Neurological: reports: No Symptoms Endocrine: reports: No Symptoms Hematology/Lymphatic: reports: No Symptoms Psychiatric: reports: No Symptoms Vital Signs: Vital Signs Temperature 98.2 F 05/15/17 08:59 Pulse Rate 101 H 05/15/17 08:59 Respiratory Rate 20 05/15/17 08:59 Blood Pressure 130/90 05/15/17 08:59 O2 Sat by Pulse Oximetry (%) 93 L 05/15/17 06:03 Constitutional: Yes: Well Nourished, No Distress, Calm Eyes: Yes: WNL, Conjunctiva Clear, EOM Intact HENT: Yes: WNL, Atraumatic, Normocephalic Neck: Yes: WNL, Supple, Trachea Midline Respiratory: Yes: WNL, Regular, CTA Bilaterally Gastrointestinal: Yes: WNL, Normal Bowel Sounds Renal/: Yes: WNL Cardiovascular: Yes: WNL, Regular Rate and Rhythm Musculoskeletal: Yes: WNL Extremities: Yes: WNL Integumentary: Yes: WNL Neurological: Yes: WNL, Alert, Oriented ...Motor Strength: WNL Psychiatric: Yes: WNL, Alert, Oriented - Other Data Labs, Other Data: CBC, BMP 05/15/17 06:57 05/15/17 06:57 INR, PTT INR 1.09 (0.82-1.09) 05/14/17 15:36 Troponin, BNP 05/14/17 05/14/17 05/14/17 15:36 16:22 22:31 Troponin I 0.03 0.02 D B-Natriuretic Peptide 2017.35 H Troponin, BNP 05/14/17 05/14/17 05/14/17 15:36 16:22 22:31 Troponin I 0.03 0.02 D B-Natriuretic Peptide 2017.35 H Imaging - Results Chest X-ray: Image Reviewed (no i/e) Cat Scan: Report Reviewed (no pe) EKG: Image Reviewed (sr lbbb) Problem List - Problems (1) Chest pain Code(s): R07.9 - CHEST PAIN, UNSPECIFIED Qualifiers: Chest pain type: unspecified Qualified Code(s): R07.9 - Chest pain, unspecified Assessment/Plan cp sob lbbb elevated bnp negative tni noncompliance copd plan echo lasix pulm eval asa mibi st when stable cont telemetry p
--- NOTE | 2017-05-15 11:04 | EKG ---
Test Reason : Blood Pressure : / mmHG Vent. Rate : 061 BPM Atrial Rate : 061 BPM P-R Int : 152 ms QRS Dur : 156 ms QT Int : 510 ms P-R-T Axes : 051 016 016 degrees QTc Int : 513 ms NORMAL SINUS RHYTHM LEFT BUNDLE BRANCH BLOCK ABNORMAL ECG WHEN COMPARED WITH ECG OF 14-MAY-2017 15:29, INVERTED T WAVES HAVE REPLACED NONSPECIFIC T WAVE ABNORMALITY IN INFERIOR LEADS Confirmed by JACOBY FORD, HERO ([id number]) on 05/15/2017 11:04:26 AM Referred By: Confirmed By:HERO DOZEIR MD
[2017-05-15] MEDS ORDERED: guaiFENesin/D-METHORPHAN HB 10 ML UNIT-DOSE CUPS ONE (11:58)
[2017-05-15] MEDS ORDERED: MORPHINE SULFATE 10 MG/1 ML *VIAL ONE ×2 (11:58→16:27)
[2017-05-15] MEDS ORDERED: methylPREDNISolone NA SUCC 40 MG/1 ML VIAL ONE ×2 (11:59→18:00)
[2017-05-15] MEDS ORDERED: guaiFENesin 200 MG/10 ML 10 ML UNIT-DOSE CUPS ONE (11:59)
[2017-05-15] MEDS: methylPREDNISolone NA SUCC 40 MG/1 ML VIAL IVPUSH SCH ×2 (12:02→18:06)
[2017-05-15] MEDS: guaiFENesin 200 MG/10 ML 10 ML UNIT-DOSE CUPS PO PRN (12:02)
[2017-05-15] MEDS: MORPHINE SULFATE 10 MG/1 ML *VIAL IVPUSH PRN ×2 (12:02→20:05)
[2017-05-15] MEDS ORDERED: CYCLOBENZAPRINE HCL 10 MG TABLET (FP) ONE (13:36)
[2017-05-15] MEDS: CYCLOBENZAPRINE HCL 10 MG TABLET (FP) PO SCH ×2 (13:50→22:19)
--- NOTE | 2017-05-15 14:08 | PN ---
Physical Exam: SUBJECTIVE: Patient seen and examined Pt reports severe neck pain radiating down his left arm with numbness and parasthesias. He complains of SOB with a hacking cough, but denies palpitations , n/v/d/c, and dysuria. OBJECTIVE: Vital Signs Period Temp Pulse Resp BP Sys/Sanchez Pulse Ox Last 24 Hr 98.2 F-98.6 F 66-101 15-20 119-161/76-97 93-98 GENERAL: middle aged male, lying in bed, in severe distress, coughing HEENT: NC, AT, EOMI NECK: no JVD LUNGS: diffuse wheezing and rhonchi HEART: Regular rate and rhythm, S1, S2 without murmur, rub or gallop. ABDOMEN: obese, soft, NT EXTREMITIES: 2+ pulses, warm, well-perfused, no edema. NEUROLOGICAL: Cranial nerves II through XII grossly intact. Normal speech, gait not observed. Laboratory Results - last 24 hr 05/14/17 05/14/17 05/14/17 15:36 15:36 15:36 WBC 12.6 H RBC 5.20 Hgb 16.3 Hct 48.8 MCV 93.8 MCH 31.4 MCHC 33.5 RDW 13.0 Plt Count 246 MPV 10.3 Neutrophils % 61.3 Lymphocytes % 28.4 Monocytes % 9.2 Eosinophils % 0.7 Basophils % 0.4 PT with INR 12.30 H INR 1.09 Puncture Site ABG pH ABG pCO2 at Pt Temp ABG pO2 at Pt Temp ABG HCO3 ABG O2 Sat (Measured) ABG O2 Content ABG Base Excess Pedro Luis Test Carboxyhemoglobin Methemoglobin O2 Delivery Device Oxygen Flow Rate Sodium 138 Potassium 4.0 Chloride 103 Carbon Dioxide 24 Anion Gap 11 BUN 16 Creatinine 0.9 Creat Clearance w eGFR > 60 Random Glucose 79 Calcium 8.0 L Phosphorus Magnesium 2.2 Total Bilirubin 0.8 AST 16 ALT 33 Alkaline Phosphatase 72 Creatine Kinase 140 Troponin I 0.03 B-Natriuretic Peptide Total Protein 6.7 Albumin 4.0 Triglycerides Cholesterol Total LDL Cholesterol HDL Cholesterol Urine Color Urine Appearance Urine pH Ur Specific [place] Urine Protein Urine Glucose (UA) Urine Ketones Urine Blood Urine Nitrite Urine Bilirubin Urine Urobilinogen Ur Leukocyte Esterase Urine WBC (Auto) Urine RBC (Auto) Ur Epithelial Cells Opiates Screen Methadone Screen Barbiturate Screen Phencyclidine Screen Ur Amphetamines Screen MDMA (Ecstasy) Screen Benzodiazepines Screen Cocaine Screen U Marijuana (THC) Screen 05/14/17 05/14/17 05/14/17 16:22 22:30 22:30 WBC RBC Hgb Hct MCV MCH MCHC RDW Plt Count MPV Neutrophils % Lymphocytes % Monocytes % Eosinophils % Basophils % PT with INR INR Puncture Site ABG pH ABG pCO2 at Pt Temp ABG pO2 at Pt Temp ABG HCO3 ABG O2 Sat (Measured) ABG O2 Content ABG Base Excess Pedro Luis Test Carboxyhemoglobin Methemoglobin O2 Delivery Device Oxygen Flow Rate Sodium Potassium Chloride Carbon Dioxide Anion Gap BUN Creatinine Creat Clearance w eGFR Random Glucose Calcium Phosphorus Magnesium Total Bilirubin AST ALT Alkaline Phosphatase Creatine Kinase Troponin I B-Natriuretic Peptide 2017.35 H Total Protein Albumin Triglycerides Cholesterol Total LDL Cholesterol HDL Cholesterol Urine Color Yellow Urine Appearance Clear Urine pH 5.0 Ur Specific [place] 1.010 Urine Protein Negative Urine Glucose (UA) Negative Urine Ketones Negative Urine Blood Negative Urine Nitrite Negative Urine Bilirubin Negative Urine Urobilinogen Normal Ur Leukocyte Esterase Trace Urine WBC (Auto) None seen Urine RBC (Auto) 2 Ur Epithelial Cells Rare Opiates Screen Positive Methadone Screen Negative Barbiturate Screen Negative Phencyclidine Screen Negative Ur Amphetamines Screen Negative MDMA (Ecstasy) Screen Negative Benzodiazepines Screen Negative Cocaine Screen Positive U Marijuana (THC) Screen Negative 05/14/17 05/14/17 05/14/17 22:31 22:35 22:43 WBC RBC Hgb Hct MCV MCH MCHC RDW Plt Count MPV Neutrophils % Lymphocytes % Monocytes % Eosinophils % Basophils % PT with INR INR Puncture Site Right radial ABG pH 7.36 ABG pCO2 at Pt Temp 48.1 H ABG pO2 at Pt Temp 64.3 L ABG HCO3 26.7 H ABG O2 Sat (Measured) 91.8 ABG O2 Content 20.2 ABG Base Excess 1.1 Pedro Luis Test Positive Carboxyhemoglobin 2.0 Methemoglobin 0.9 O2 Delivery Device Room air Oxygen Flow Rate 21 Sodium Potassium Chloride Carbon Dioxide Anion Gap BUN Creatinine Creat Clearance w eGFR Random Glucose Calcium Phosphorus Magnesium Total Bilirubin AST ALT Alkaline Phosphatase Creatine Kinase 133 Troponin I 0.02 D B-Natriuretic Peptide Total Protein Albumin Triglycerides Cholesterol Total LDL Cholesterol HDL Cholesterol Urine Color Urine Appearance Urine pH Ur Specific [place] Urine Protein Urine Glucose (UA) Urine Ketones Urine Blood Urine Nitrite Urine Bilirubin Urine Urobilinogen Ur Leukocyte Esterase Urine WBC (Auto) Urine RBC (Auto) Ur Epithelial Cells Opiates Screen Methadone Screen Barbiturate Screen Phencyclidine Screen Ur Amphetamines Screen MDMA (Ecstasy) Screen Benzodiazepines Screen Cocaine Screen U Marijuana (THC) Screen 05/15/17 05/15/17 05/15/17 06:57 06:57 06:57 WBC 8.0 D RBC 5.09 Hgb 15.7 Hct 47.6 MCV 93.5 MCH 30.8 MCHC 32.9 RDW 12.8 Plt Count 249 MPV 9.4 Neutrophils % 83.2 H D Lymphocytes % 13.6 D Monocytes % 3.0 L Eosinophils % 0.0 D Basophils % 0.2 PT with INR INR Puncture Site ABG pH ABG pCO2 at Pt Temp ABG pO2 at Pt Temp ABG HCO3 ABG O2 Sat (Measured) ABG O2 Content ABG Base Excess Pedro Luis Test Carboxyhemoglobin Methemoglobin O2 Delivery Device Oxygen Flow Rate Sodium 137 Potassium 4.7 Chloride 102 Carbon Dioxide 25 Anion Gap 10 BUN 20 H D Creatinine 1.1 D Creat Clearance w eGFR > 60 Random Glucose 147 H D Calcium 9.0 Phosphorus 3.9 Magnesium 2.6 H Total Bilirubin 0.6 D AST 20 D ALT 36 Alkaline Phosphatase 72 Creatine Kinase Troponin I B-Natriuretic Peptide Total Protein 7.3 Albumin 3.9 Triglycerides 58 Cholesterol 157 Total LDL Cholesterol 100 HDL Cholesterol 42 Urine Color Urine Appearance Urine pH Ur Specific [place] Urine Protein Urine Glucose (UA) Urine Ketones Urine Blood Urine Nitrite Urine Bilirubin Urine Urobilinogen Ur Leukocyte Esterase Urine WBC (Auto) Urine RBC (Auto) Ur Epithelial Cells Opiates Screen Methadone Screen Barbiturate Screen Phencyclidine Screen Ur Amphetamines Screen MDMA (Ecstasy) Screen Benzodiazepines Screen Cocaine Screen U Marijuana (THC) Screen Active Medications Generic Name Dose Route Start Last Admin Trade Name Freq PRN Reason Stop Dose Admin Albuterol/Ipratropium 1 amp 05/15/17 02:00 05/15/17 08:45 Duoneb - NEB 1 amp Q4HPO DENIA Administration Albuterol/Ipratropium 1 amp 05/15/17 00:10 Duoneb - NEB Q6H PRN SHORTNESS OF BREATH Aspirin 81 mg 05/15/17 10:00 05/15/17 09:44 Ecotrin - PO 81 mg DAILY DENIA Administration Cyclobenzaprine HCl 5 mg 05/15/17 14:00 05/15/17 13:50 Flexeril - PO 5 mg TID DENIA Administration Furosemide 40 mg 05/15/17 10:00 05/15/17 09:44 Lasix Injection - IVPUSH 40 mg DAILY DENIA Administration Guaifenesin 10 ml 05/15/17 09:58 05/15/17 12:02 Robitussin - PO 10 ml Q6H PRN Administration COUGH Heparin Sodium (Porcine) 5,000 unit 05/15/17 06:00 05/15/17 13:51 Heparin - SQ 5,000 unit TID DENIA Administration Ketorolac Tromethamine 15 mg 05/15/17 10:06 Toradol Injection - IVPUSH 05/20/17 10:05 Q6H PRN PAIN LEVEL 4 - 6 Methyl Salicylate 1 applic 05/15/17 10:15 Jesus Manuel-Baron - TP BID DENIA Methylprednisolone Sodium Succinate 40 mg 05/15/17 10:15 05/15/17 12:02 Solu-Medrol - IVPUSH 40 mg Q8H-IV DENIA Administration Morphine Sulfate 2 mg 05/15/17 10:06 05/15/17 12:02 Morphine Injection - IVPUSH 2 mg Q4H PRN Administration PAIN LEVEL 6-10 Nitroglycerin 0.4 mg 05/14/17 22:17 Nitrostat - SL Q5M PRN FOR CHEST PAIN CXR: no acute pathology Chest CTA: no PE ASSESSMENT/PLAN: 52 M with pmhx of questionable CHF who presents with neck pain that radiates down to his arm/chest and with shortness of breath, admitted for CHF vs. COPD exacerbation and r/o ACS. #Chest Pain - R/O ACS: trops- 0.03--> 0.02. EKG NSR - pain control with toradol and morphine - Avoid BB as hx. of Cocaine use - f/u echo - Cardio on board, recs appreciated. MIBI when stable -f/u a1c -LDL: 100 #CHF vs. COPD exacerbation - pt not clinically overloaded- no JVD appreciated, no LE edema, but BNP of 2017 - IV lasix 40 - Daily weights, strict I/Os - f/u Echo - duonebs standing and PRN - solumedrol - pulmonary consulted, f/u recs #Carotid Artery Atherosclerosis on CT - Carotid US: no hemodynamically significant stenosis #radiating neck pain to left arm -likely 2/2 central canal stenosis of C3-C4 and C5-C6 as seen on CT neck -MRA neck. If +, will consult neurosurgery -pain control with flexeril, toradol, and morphine #polysubstance abuse -smoking cessation counseling -nicotine patch -cocaine cessation counseling #prolonged QTc -QTc of 499 on EKG -avoid QT prolonging agents #FEN/ppx -po fluids -electrolytes wnl -sodium controlled diet -protonix for GI ppx -heparin 5000U TID Plan discussed with attending, Dr. Nowak. Tremayne Hurtado MD PGY1 Visit type - Emergency Visit Emergency Visit: Yes ED Registration Date: 05/14/17 Care time: The patient presented to the Emergency Department on the above date and was hospitalized for further evaluation of their emergent condition. - New Patient This patient is new to me today: Yes Date on this admission: 05/15/17 - Critical Care Critical Care patient: No - Discharge Referral Referred to [facility] No
[2017-05-15] MEDS: METHYL SALICYLATE/MENTHOL OINT 30 GM TUBE TP SCH ×2 (14:29→22:19)
[2017-05-15] MEDS: PANTOPRAZOLE 40 MG TABLET (FP) PO SCH (14:45)
--- NOTE | 2017-05-15 15:17 | PN ---
Teaching Attending Note Name of Resident: Tremayne Hurtado ATTENDING PHYSICIAN STATEMENT time of evaluation: 9:30 AM I saw and evaluated the patient. I reviewed the resident's note and discussed the case with the resident. I agree with the resident's findings and plan as documented. SUBJECTIVE: patient seen and examined. reports left sided neck pain that is severe limiting his neck movements. reports sharp pain that radiating down left chest and left arm with LUE tingling/intermittent numbness for the last few days, denies any trauma. Also has been smoking 1/2 PPD, with chronic cough, cough has been worsened over the last month with dyspnea and PND. Denies any leg swelling, chest pain, palpitations, or weight gain recently. OBJECTIVE: Vital Signs Period Temp Pulse Resp BP Sys/Sanchez Pulse Ox Last 24 Hr 97.5 F-98.6 F 66-101 15-20 119-138/75-90 93-96 Intake & Output 05/12/17 05/13/17 05/14/17 05/15/17 23:59 23:59 23:59 23:59 Weight 215 lb general; Sitting in bed in no acute distress, attempted to get up with marked limitation left sided neck movements on change in position Neck: left sided neck tenderness/spasm over sternomastoid area, power LUE 5/5, sensation positive to light touch, limited ROM, no C-spine tenderness noted Chest: bilateral scattered wheezing, positive air entry Abdomen: soft, NT, ND, positive bowel sounds, no RUQ tenderness noted Extremities: no edema, positive pulses Home Medication List Medication Instructions Recorded Confirmed Type NK [No Known Home Medication] 05/14/17 05/14/17 History Active Medications Generic Name Dose Route Start Last Admin Trade Name Freq PRN Reason Stop Dose Admin Albuterol/Ipratropium 1 amp 05/15/17 02:00 05/15/17 14:02 Duoneb - NEB 1 amp Q4HPO DENIA Administration Albuterol/Ipratropium 1 amp 05/15/17 00:10 Duoneb - NEB Q6H PRN SHORTNESS OF BREATH Aspirin 81 mg 05/15/17 10:00 05/15/17 09:44 Ecotrin - PO 81 mg DAILY DENIA Administration Cyclobenzaprine HCl 5 mg 05/15/17 14:00 05/15/17 13:50 Flexeril - PO 5 mg TID DENIA Administration Furosemide 40 mg 05/15/17 10:00 05/15/17 09:44 Lasix Injection - IVPUSH 40 mg DAILY [facility] Administration Guaifenesin 10 ml 05/15/17 09:58 05/15/17 12:02 Robitussin - PO 10 ml Q6H PRN Administration COUGH Heparin Sodium (Porcine) 5,000 unit 05/15/17 06:00 05/15/17 13:51 Heparin - SQ 5,000 unit TID [facility] Administration Ketorolac Tromethamine 15 mg 05/15/17 10:06 Toradol Injection - IVPUSH 05/20/17 10:05 Q6H PRN PAIN LEVEL 4 - 6 Methyl Salicylate 1 applic 05/15/17 10:15 05/15/17 14:29 Jesus Manuel-Baron - TP 1 applic BID [facility] Administration Methylprednisolone Sodium Succinate 40 mg 05/15/17 10:15 05/15/17 12:02 Solu-Medrol - IVPUSH 40 mg Q8H-IV [facility] Administration Morphine Sulfate 2 mg 05/15/17 10:06 05/15/17 12:02 Morphine Injection - IVPUSH 2 mg Q4H PRN Administration PAIN LEVEL 6-10 Nicotine 14 mg 05/15/17 14:45 Nicoderm Patch - TD DAILY [facility] Nitroglycerin 0.4 mg 05/14/17 22:17 Nitrostat - SL Q5M PRN FOR CHEST PAIN Pantoprazole Sodium 40 mg 05/15/17 14:45 Protonix - PO DAILY [facility] Laboratory Results - last 24 hr 05/14/17 05/14/17 05/14/17 15:36 15:36 15:36 WBC 12.6 H RBC 5.20 Hgb 16.3 Hct 48.8 MCV 93.8 MCH 31.4 MCHC 33.5 RDW 13.0 Plt Count 246 MPV 10.3 Neutrophils % 61.3 Lymphocytes % 28.4 Monocytes % 9.2 Eosinophils % 0.7 Basophils % 0.4 PT with INR 12.30 H INR 1.09 Puncture Site ABG pH ABG pCO2 at Pt Temp ABG pO2 at Pt Temp ABG HCO3 ABG O2 Sat (Measured) ABG O2 Content ABG Base Excess Pedro Luis Test Carboxyhemoglobin Methemoglobin O2 Delivery Device Oxygen Flow Rate Sodium 138 Potassium 4.0 Chloride 103 Carbon Dioxide 24 Anion Gap 11 BUN 16 Creatinine 0.9 Creat Clearance w eGFR > 60 Random Glucose 79 Calcium 8.0 L Phosphorus Magnesium 2.2 Total Bilirubin 0.8 AST 16 ALT 33 Alkaline Phosphatase 72 Creatine Kinase 140 Troponin I 0.03 B-Natriuretic Peptide Total Protein 6.7 Albumin 4.0 Triglycerides Cholesterol Total LDL Cholesterol HDL Cholesterol Urine Color Urine Appearance Urine pH Ur Specific [place] Urine Protein Urine Glucose (UA) Urine Ketones Urine Blood Urine Nitrite Urine Bilirubin Urine Urobilinogen Ur Leukocyte Esterase Urine WBC (Auto) Urine RBC (Auto) Ur Epithelial Cells Opiates Screen Methadone Screen Barbiturate Screen Phencyclidine Screen Ur Amphetamines Screen MDMA (Ecstasy) Screen Benzodiazepines Screen Cocaine Screen U Marijuana (THC) Screen 05/14/17 05/14/17 05/14/17 16:22 22:30 22:30 WBC RBC Hgb Hct MCV MCH MCHC RDW Plt Count MPV Neutrophils % Lymphocytes % Monocytes % Eosinophils % Basophils % PT with INR INR Puncture Site ABG pH ABG pCO2 at Pt Temp ABG pO2 at Pt Temp ABG HCO3 ABG O2 Sat (Measured) ABG O2 Content ABG Base Excess Pedro Luis Test Carboxyhemoglobin Methemoglobin O2 Delivery Device Oxygen Flow Rate Sodium Potassium Chloride Carbon Dioxide Anion Gap BUN Creatinine Creat Clearance w eGFR Random Glucose Calcium Phosphorus Magnesium Total Bilirubin AST ALT Alkaline Phosphatase Creatine Kinase Troponin I B-Natriuretic Peptide 2017.35 H Total Protein Albumin Triglycerides Cholesterol Total LDL Cholesterol HDL Cholesterol Urine Color Yellow Urine Appearance Clear Urine pH 5.0 Ur Specific [place] 1.010 Urine Protein Negative Urine Glucose (UA) Negative Urine Ketones Negative Urine Blood Negative Urine Nitrite Negative Urine Bilirubin Negative Urine Urobilinogen Normal Ur Leukocyte Esterase Trace Urine WBC (Auto) None seen Urine RBC (Auto) 2 Ur Epithelial Cells Rare Opiates Screen Positive Methadone Screen Negative Barbiturate Screen Negative Phencyclidine Screen Negative Ur Amphetamines Screen Negative MDMA (Ecstasy) Screen Negative Benzodiazepines Screen Negative Cocaine Screen Positive U Marijuana (THC) Screen Negative 05/14/17 05/14/17 05/14/17 22:31 22:35 22:43 WBC RBC Hgb Hct MCV MCH MCHC RDW Plt Count MPV Neutrophils % Lymphocytes % Monocytes % Eosinophils % Basophils % PT with INR INR Puncture Site Right radial ABG pH 7.36 ABG pCO2 at Pt Temp 48.1 H ABG pO2 at Pt Temp 64.3 L ABG HCO3 26.7 H ABG O2 Sat (Measured) 91.8 ABG O2 Content 20.2 ABG Base Excess 1.1 Pedro Luis Test Positive Carboxyhemoglobin 2.0 Methemoglobin 0.9 O2 Delivery Device Room air Oxygen Flow Rate 21 Sodium Potassium Chloride Carbon Dioxide Anion Gap BUN Creatinine Creat Clearance w eGFR Random Glucose Calcium Phosphorus Magnesium Total Bilirubin AST ALT Alkaline Phosphatase Creatine Kinase 133 Troponin I 0.02 D B-Natriuretic Peptide Total Protein Albumin Triglycerides Cholesterol Total LDL Cholesterol HDL Cholesterol Urine Color Urine Appearance Urine pH Ur Specific [place] Urine Protein Urine Glucose (UA) Urine Ketones Urine Blood Urine Nitrite Urine Bilirubin Urine Urobilinogen Ur Leukocyte Esterase Urine WBC (Auto) Urine RBC (Auto) Ur Epithelial Cells Opiates Screen Methadone Screen Barbiturate Screen Phencyclidine Screen Ur Amphetamines Screen MDMA (Ecstasy) Screen Benzodiazepines Screen Cocaine Screen U Marijuana (THC) Screen 05/15/17 05/15/17 05/15/17 06:57 06:57 06:57 WBC 8.0 D RBC 5.09 Hgb 15.7 Hct 47.6 MCV 93.5 MCH 30.8 MCHC 32.9 RDW 12.8 Plt Count 249 MPV 9.4 Neutrophils % 83.2 H D Lymphocytes % 13.6 D Monocytes % 3.0 L Eosinophils % 0.0 D Basophils % 0.2 PT with INR INR Puncture Site ABG pH ABG pCO2 at Pt Temp ABG pO2 at Pt Temp ABG HCO3 ABG O2 Sat (Measured) ABG O2 Content ABG Base Excess Pedro Luis Test Carboxyhemoglobin Methemoglobin O2 Delivery Device Oxygen Flow Rate Sodium 137 Potassium 4.7 Chloride 102 Carbon Dioxide 25 Anion Gap 10 BUN 20 H D Creatinine 1.1 D Creat Clearance w eGFR > 60 Random Glucose 147 H D Calcium 9.0 Phosphorus 3.9 Magnesium 2.6 H Total Bilirubin 0.6 D AST 20 D ALT 36 Alkaline Phosphatase 72 Creatine Kinase Troponin I B-Natriuretic Peptide Total Protein 7.3 Albumin 3.9 Triglycerides 58 Cholesterol 157 Total LDL Cholesterol 100 HDL Cholesterol 42 Urine Color Urine Appearance Urine pH Ur Specific [place] Urine Protein Urine Glucose (UA) Urine Ketones Urine Blood Urine Nitrite Urine Bilirubin Urine Urobilinogen Ur Leukocyte Esterase Urine WBC (Auto) Urine RBC (Auto) Ur Epithelial Cells Opiates Screen Methadone Screen Barbiturate Screen Phencyclidine Screen Ur Amphetamines Screen MDMA (Ecstasy) Screen Benzodiazepines Screen Cocaine Screen U Marijuana (THC) Screen Microbiology 05/15/17 12:14 Nasopharyngeal Swab Influenza Types A,B Antigen (MIKEY) - Preliminary 05/15/17 12:14 Nasopharyngeal Swab - Preliminary 05/14/17 22:30 Urine For Antigen Detection Legionella Antigen - Final 05/14/17 22:30 Urine For Antigen Detection Streptococcus pneumoniae Antigen (M - Final 2D echo = EF 29%,results reviewed EKG - NSR 61, LBBB ( no prior EKG available). ASSESSMENT AND PLAN: 52 yom with PMhx of tobacco/cocaine abuse, CHF (?EF 20%), admitted with left neck pain,dyspnea, wheezing. -left neck pain radiating down to chest/LUE, ?radicular pain from C-spine stenosis, vs musculoskeletal. CT neck neg for acute concerns -Acute hypoxic/hypercapneic respiratory insufficiency, likely acute COPD exacerbation from ?recent URI +/- acute systolic heart failure exacerbation -Cardiomyopathy, ?cocaine induced, need to r/o ischemic -Tobacco dependence -Cocaine abuse -LBBB, ?old Plan: 2D echo noted, Cardiology input appreciated. Lasix 40 mg IV, strict I/Os. Hold off on betablocker given active cocaine use. ASA. lipid panel noted. ACEi as improves. Will need ischemic w/u including stress vs cardiac cath, will discuss with cardiology No prior EKG. Retrieve prior records as patient reports being told of EF 20% in the past. Active wheezing, change to solumedrol 40 mg IV q8h, standing and prn nebs, oxygen suppl. Influenza/PNA studies neg. WBC normalized. Hold off on antibiotics for now. MRI C-spine/Neck, flexeril/tylenol/toradol and morphine for severe pain. Topical bengay/hot packs, PT. Carotid dopplers/CT neck noted. DVTPPX Dispo pending improvement in medical issues. ?home vs possible transfer to tertiary care for ischemic w/u based on cardiology recs. Plan discussed with patient in detail, all questions answered.
--- NOTE | 2017-05-15 15:19 | PN ---
Teaching Attending Note Name of Resident: Kj Cid ATTENDING PHYSICIAN STATEMENT I saw and evaluated the patient. I reviewed the resident's note and discussed the case with the resident. I agree with the resident's findings and plan as documented. IMP DYSPNEA COPD EXACERBATION CHF CARDIOMYOPATHY TOBACCO ABUSE PLAN LASIX O2 INHALED BRONCHODILATORS STEROIDS CE PFTS OUTPATIENT SMOKING CESSATION COUNSELED DR NORTON
--- NOTE | 2017-05-15 16:16 | CON.PULM ---
Consult Consult Specialty:: Pulm Referred by:: Primary team Reason for Consultation:: SOB, Wheezing, Smoker - History of Present Illness Chief Complaint: Worsening SOB x 1 month History of Present Illness: 52 y.o. M with pmh of ? 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 Patient states he came in with neck pain radiating to his chest but has been having severe sob, cough, wheezing. Patient is a 1 pack/3day smoker and previously a 3 ppd smoker. Patient has not received a flu shot. Patient denies fever, chills, hemoptysis. Patient endorses orthopnea and PND - History Source History Provided By: Patient Limitations to Obtaining History: No Limitations - Past Medical History Cardio/Vascular: Yes: CHF - Alcohol/Substance Use Hx Alcohol Use: Yes - Smoking History Smoking history: Current every day smoker Aproximately how many cigarettes per day: 10 Home Medications - Allergies Allergies/Adverse Reactions: Allergies Allergy/AdvReac Type Severity Reaction Status Date / Time No Known Allergies Allergy Verified 05/14/17 15:10 - Home Medications Home Medications: Ambulatory Orders NK [No Known Home Medication] 05/14/17 Review of Systems Findings/Remarks: CONSTITUTIONAL: Absent: fever, chills, diaphoresis, generalized weakness, malaise, loss of appetite, weight change HEENT: Absent: rhinorrhea, nasal congestion, throat pain, throat swelling, difficulty swallowing, mouth swelling, ear pain, eye pain, visual changes CARDIOVASCULAR: Absent: chest pain, syncope, palpitations, irregular heart rate, lightheadedness , peripheral edema RESPIRATORY: cough+, shortness of breath+, dyspnea with exertion+, orthopnea+, wheezing+, stridor+, hemoptysis GASTROINTESTINAL: Absent: abdominal pain, abdominal distension, nausea, vomiting, diarrhea, constipation, melena, hematochezia GENITOURINARY: Absent: dysuria, frequency, urgency, hesitancy, hematuria, flank pain, genital pain MUSCULOSKELETAL: neck pain+ Absent: myalgia, arthralgia, joint swelling, back pain, SKIN: Absent: rash, itching, pallor HEMATOLOGIC/IMMUNOLOGIC: Absent: easy bleeding, easy bruising, lymphadenopathy, frequent infections ENDOCRINE: Absent: unexplained weight gain, unexplained weight loss, heat intolerance, cold intolerance NEUROLOGIC: Absent: headache, focal weakness or paresthesias, dizziness, unsteady gait, seizure, mental status changes, bladder or bowel incontinence PSYCHIATRIC: Absent: anxiety, depression, suicidal or homicidal ideation, hallucinations. Physical Exam Vital Sings: Vital Signs Temperature 97.5 F L 05/15/17 14:03 Pulse Rate 71 05/15/17 14:03 Respiratory Rate 20 05/15/17 14:03 Blood Pressure 121/75 05/15/17 14:03 O2 Sat by Pulse Oximetry (%) 96 05/15/17 11:39 Constitutional: Yes: Well Nourished, Calm, Mild Distress Eyes: Yes: WNL, Conjunctiva Clear, EOM Intact HENT: Yes: WNL, Atraumatic, Normocephalic Cardiovascular: Yes: Regular Rate and Rhythm, S1, S2 Respiratory: Yes: Orthopnea ...Breath Sounds: LIBIA Wheezes, LLL Wheezes, RUL Wheezes, RML Wheezes, RLL Wheezes Gastrointestinal: Yes: WNL, Normal Bowel Sounds, Soft Edema: No Labs: CBC, BMP 05/15/17 06:57 05/15/17 06:57 ABG Results ABG pH 7.36 (7.35-7.45) 05/14/17 22:35 ABG pCO2 at Pt Temp 48.1 mmHg (35-45) H 05/14/17 22:35 ABG pO2 at Pt Temp 64.3 mmHg (80-100) L 05/14/17 22:35 ABG HCO3 26.7 meq/L (22-26) H 05/14/17 22:35 ABG O2 Sat (Measured) 91.8 % (90-98.9) 05/14/17 22:35 ABG O2 Content 20.2 % vol (15-22) 05/14/17 22:35 ABG Base Excess 1.1 meq/l (-2-2) 05/14/17 22:35 Assessment/Plan 52 y.o. M with pmh of ? 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
[2017-05-15] MEDS ORDERED: PANTOPRAZOLE 40 MG TABLET (FP) ONE (16:27)
[2017-05-15] MEDS ORDERED: cefTRIAXone 1 GM/50 ML BAG (PRE-DOCKED) IVPB SCH (16:45)
[2017-05-15] MEDS ORDERED: CEFTRIAXONE 1 GM/50 ML BAG ONE (18:00)
[2017-05-15] MEDS: CEFTRIAXONE 1 G/50 ML PREMIX 50 ML IVPB SCH (18:06)
[2017-05-15] MEDS: NICOTINE 14 MG/24 HOURS TOPICAL PATCH TD SCH (19:02)
[2017-05-15] MEDS: DOXYCYCLINE INJECTION 100 MG in DEXTROSE 5%-WATER - 100 ML IVPB SCH (22:19)
[2017-05-16] MEDS: methylPREDNISolone NA SUCC 40 MG/1 ML VIAL IVPUSH SCH ×3 (01:49→18:10)
[2017-05-16] MEDS: MORPHINE SULFATE 10 MG/1 ML *VIAL IVPUSH PRN (04:33)
[2017-05-16] MEDS: CYCLOBENZAPRINE HCL 10 MG TABLET (FP) PO SCH ×3 (05:40→22:10)
[2017-05-16] MEDS: HEPARIN NA (PORCINE) 5,000 UNITS/ML 1ML VIAL SQ SCH ×3 (05:40→22:10)
[2017-05-16] MEDS: KETOROLAC TROMETHAMINE 15 MG/ML VIAL IVPUSH PRN ×2 (05:40→13:37)
[2017-05-16 06:32] LABS: BASO % 0.1 % (0-2.0); HEMATOCRIT 44.5 % (35.4-49); HEMOGLOBIN 14.8 GM/dL (11.7-16.9); LYMPH % 6.3 % (8-40); MCH 31.5 pg (25.7-33.7); MCHC 33.3 g/dl (32.0-35.9); MEAN CELL VOLUME 94.6 fl (80-96); MEAN PLT VOLUME 9.8 fl (7.5-11.1); MONO % 4.2 % (3.8-10.2); NEUT % 89.4 % (42.8-82.8); PLATELET COUNT 205 K/MM3 (134-434); RDW 12.9 % (11.9-15.9)
--- NOTE | 2017-05-16 06:40 | MSN ---
Progress Note (short form) - Note Progress Note: Subjective: Patient was seen this morning and states that the neck pain is bearable with toradol but becomes unbearable when patient coughs. Patient states that he is still coughing a lot. Patient's breathing has not improved. Patient denies abd pain/ N/V/D. Objective: Last Vital Signs Temp Pulse Resp BP Pulse Ox 98.4 F 62 20 128/74 91 L 05/16/17 01:00 05/16/17 01:00 05/16/17 01:00 05/16/17 01:00 05/15/17 21:00 Intake & Output 05/13/17 05/14/17 05/15/17 05/16/17 23:59 23:59 23:59 23:59 Intake Total 200 Balance 200 Weight 215 lb 215 lb General: Patient is an obese man. Patient gets dyspneic and is in distress when he has a coughing fit. HEENT: PERRL. moist mucous membrane Heart: distant heart sound. appears RRR. no murmurs, rubs or gallops appreciated. Lung: diffuse wheezing throughout with normal breaths. Patient unable to take deep breaths due to cough. Abdomen: protuberant, nontender to palpation, normoactive bowel sounds x4 Musculoskeletal: improved range of motion on neck and left UE, still with significant neck/ left chest pain. Extremities: well perfused, pulses 2+ throughout. No edema noted CBC, BMP 05/16/17 06:15 05/16/17 06:15 Abnormal Lab Results 05/15/17 05/15/17 05/16/17 06:57 06:57 06:15 WBC 19.0 H D Neutrophils % 89.4 H Lymphocytes % 6.3 L D Anion Gap BUN 20 H D Random Glucose 147 H D Hemoglobin A1c % 6.5 H Magnesium 2.6 H 05/16/17 06:15 WBC Neutrophils % Lymphocytes % Anion Gap 7 L BUN 21 H Random Glucose 146 H Hemoglobin A1c % Magnesium Microbiology 05/14/17 18:10 Blood - Peripheral Venous Blood Culture - Preliminary NO GROWTH OBTAINED AFTER 24 HOURS, INCUBATION TO CONTINUE FOR 4 DAYS. 05/14/17 18:10 Blood - Peripheral Venous Blood Culture - Preliminary NO GROWTH OBTAINED AFTER 24 HOURS, INCUBATION TO CONTINUE FOR 4 DAYS. 05/15/17 06:20 Sputum - Expectorated Gram Stain - Final 05/15/17 12:14 Nasopharyngeal Swab Influenza Types A,B Antigen (MIKEY) - Preliminary 05/15/17 12:14 Nasopharyngeal Swab - Preliminary 05/14/17 22:30 Urine For Antigen Detection Legionella Antigen - Final 05/14/17 22:30 Urine For Antigen Detection Streptococcus pneumoniae Antigen (M - Final Current Medications Albuterol/Ipratropium (Duoneb -) 1 amp NEB Q4HPO [facility] Last Admin: 05/15/17 14:02 Dose: 1 amp Albuterol/Ipratropium (Duoneb -) 1 amp NEB Q6H PRN PRN Reason: SHORTNESS OF BREATH Aspirin (Ecotrin -) 81 mg PO DAILY [facility] Last Admin: 05/15/17 09:44 Dose: 81 mg Cyclobenzaprine HCl (Flexeril -) 5 mg PO TID [facility] Last Admin: 05/16/17 05:40 Dose: 5 mg Furosemide (Lasix Injection -) 40 mg IVPUSH DAILY [facility] Last Admin: 05/15/17 09:44 Dose: 40 mg Guaifenesin (Robitussin -) 10 ml PO Q6H PRN PRN Reason: COUGH Last Admin: 05/15/17 12:02 Dose: 10 ml Heparin Sodium (Porcine) (Heparin -) 5,000 unit SQ TID [facility] Last Admin: 05/16/17 05:40 Dose: 5,000 unit Doxycycline Hyclate 100 mg/ (Dextrose) 100 mls @ 50 mls/hr IVPB BID [facility] Last Admin: 05/15/17 22:19 Dose: 50 mls/hr CEFTRIAXONE 1 G/50 ML PREMIX (Ceftriaxone 1 Gm-D5w Bag) 50 mls @ 100 mls/hr IVPB DAILY [facility] Last Admin: 05/15/17 18:06 Dose: 100 mls/hr Ketorolac Tromethamine (Toradol Injection -) 15 mg IVPUSH Q6H PRN PRN Reason: PAIN LEVEL 4 - 6 Stop: 05/20/17 10:05 Last Admin: 05/16/17 05:40 Dose: 15 mg Methyl Salicylate (Jesus Manuel-Baron -) 1 applic TP BID [facility] Last Admin: 05/15/17 22:19 Dose: 1 applic Methylprednisolone Sodium Succinate (Solu-Medrol -) 40 mg IVPUSH Q8H-IV [facility] Last Admin: 05/16/17 01:49 Dose: 40 mg Morphine Sulfate (Morphine Injection -) 2 mg IVPUSH Q4H PRN PRN Reason: PAIN LEVEL 6-10 Last Admin: 05/16/17 04:33 Dose: 2 mg Nicotine (Nicoderm Patch -) 14 mg TD DAILY [facility] Last Admin: 05/15/17 19:02 Dose: Not Given Nitroglycerin (Nitrostat -) 0.4 mg SL Q5M PRN PRN Reason: FOR CHEST PAIN Pantoprazole Sodium (Protonix -) 40 mg PO DAILY [facility] Last Admin: 05/15/17 14:45 Dose: 40 mg Imaging: Echo 05/15: EF 29% left ventricle mildly dilated, moderate to severe global hypokinesis of the left ventricle. moderate aortic root dilation. CXR 05/15 No evidence of active pulmonary disease. Carotid doppler US 05/15 A small amount of atherosclerotic plaque is identified at the carotid bifurcations bilaterally. Mild atherosclerotic disease with no evidence of hemodynamically significant stenoses. Neck CT with contrast 05/[address] evidence of acute pathology. Atherosclerotic carotid artery calcifications are noted which are probably more prominent than would be expected for the patient's chronologic age. Correlate with clinical risk factors. C3-C4 and C5-C6 central canal stenosis which is probably moderate to marked. Chest CTA 05/[address] evidence of acute pathology. Atherosclerotic carotid artery calcifications are noted which are probably more prominent than would be expected for the patient's chronologic age. Correlate with clinical risk factors. C3-C4 and C5-C6 central canal stenosis which is probably moderate to marked Plan/ Assessment: 52 yo M with an unknown medical history, possible CHF, who presented with severe left sided neck/ chest pain for 3 days and worsening shortness of breath for the past month likely due to undiagnosed COPD, heart failure, cervical stenosis. # chest pain - r/o ACS trops 0.03- 0.02 - EKG shows LBBB, prolonged QTc of 499. LBBB on EKG in 2016 - coronary angiogram on 05/2015 showed mild nonobstructive multivessel disease. - nitroglycerin prn - cardiac monitoring - telemetry - lipid panel wnl - aspirin 81mg po daily - echo EF 29%. no significant changes from 2016. - exacerbated by cough - Robitussin - per cardio consult Dr. Winter - start lisinopril, spironoloactone, hydralazine and isordil dinitrate. # possible CHF vs COPD exacerbation - lasix 40mg IVPush daily - ABG 05/15 shows mild respiratory acidosis - keep O2 sats >92% - pulm consult -Dr. Stevenson, may need PFT outpt - prednisone 40mg qd - duoneb q6h prn - sputum: gram + cocci in clusters and chains, doxycycline 100mg, ceftriaxone 1g # radiating neck pain likely secondary to C3-C6 stenosis - carotid doppler shows mild atherosclerosis on bifurcation, no hemodynamically significant stenosis - neck CT shows moderate C3-C4, C5-C6 central canal stenosis - Cspine MRI, MRA neck. consult neurosurgery - pain control with flexeril 5mg TID, toradol, and morphine. increase dose of flexeril to 10mg. # new diagnosis of DM - A1C 6.5 - patient education, diet/ exercise recommendation - metformin or glipizide? # HTN - lasix - avoid BB due to recent cocaine use #polysubstance abuse - sales counselor on smoking cessation, cocaine cessation - nicotine patch #FEN/ppx - F: po fluids - E: electrolytes wnl - N: diabetic, sodium controlled diet - GI: protonix for GI ppx - DVT prophylaxis: heparin 5000U TID
[2017-05-16 07:05] LABS: ANION GAP 7 (8-16); BLOOD UREA NITROGEN 21 mg/dL (7-18); CALCIUM 8.8 mg/dL (8.5-10.1); CHLORIDE 107 mmol/L (98-107); CO2 27 mmol/L (21-32); CREATININE 0.9 mg/dL (0.7-1.3); GLUCOSE,RANDOM 146 mg/dL (74-106); MAGNESIUM 2.2 mg/dL (1.8-2.4); PHOSPHOROUS 3.6 mg/dL (2.5-4.9); POTASSIUM 4.7 mmol/L (3.5-5.1); SODIUM 141 mmol/L (136-145)
[2017-05-16] MEDS ORDERED: PT OWN MED DRAWER 7, Y5N ONE (08:44)
[2017-05-16] MEDS: ALBUTEROL SO4 2.5/IPRATROPIUM 0.5 INH SOL 3 ML VIAL.NEB. NEB SCH ×4 (09:03→21:12)
[2017-05-16] MEDS: FUROSEMIDE 40 MG/4 ML INJECTABLE VIAL IVPUSH SCH (09:16)
[2017-05-16] MEDS: NICOTINE 14 MG/24 HOURS TOPICAL PATCH TD SCH ×2 (09:16→12:34)
[2017-05-16] MEDS: METHYL SALICYLATE/MENTHOL OINT 30 GM TUBE TP SCH ×2 (09:17→22:16)
[2017-05-16] MEDS: CEFTRIAXONE 1 G/50 ML PREMIX 50 ML IVPB SCH (09:17)
[2017-05-16] MEDS: ASPIRIN COATED 81 MG TABLET.EC PO SCH (09:17)
[2017-05-16] MEDS: PANTOPRAZOLE 40 MG TABLET (FP) PO SCH (09:31)
--- NOTE | 2017-05-16 11:14 | PN ---
Progress Note, Physician History of Present Illness: 52 y.o. M with pmh of CHF (told by metal window screen assembler he has EF of 20%), COPD, noncompliance, presented with 1 month hx of SOB with exertion and at rest. Patient states he came in with neck pain radiating to his chest but has been having severe sob, cough, wheezing. Patient is a 1 pack/3day smoker and previously a 3 ppd smoker. Patient has not received a flu shot. Patient denies fever, chills, hemoptysis. Patient endorses orthopnea and PND. No acute events ovenright. Patient feels the same as yesterday, states he has had no improvement in his symptoms. Patient denies fever, chills, chest pain - Current Medication List Current Medications: Active Medications Albuterol/Ipratropium (Duoneb -) 1 amp NEB Q4HPO [facility] Last Admin: 05/16/17 09:03 Dose: 1 amp Albuterol/Ipratropium (Duoneb -) 1 amp NEB Q6H PRN PRN Reason: SHORTNESS OF BREATH Aspirin (Ecotrin -) 81 mg PO DAILY [facility] Last Admin: 05/16/17 09:17 Dose: 81 mg Cyclobenzaprine HCl (Flexeril -) 5 mg PO TID [facility] Last Admin: 05/16/17 05:40 Dose: 5 mg Furosemide (Lasix Injection -) 40 mg IVPUSH DAILY [facility] Last Admin: 05/16/17 09:16 Dose: 40 mg Guaifenesin (Robitussin -) 10 ml PO Q6H PRN PRN Reason: COUGH Last Admin: 05/15/17 12:02 Dose: 10 ml Heparin Sodium (Porcine) (Heparin -) 5,000 unit SQ TID [facility] Last Admin: 05/16/17 05:40 Dose: 5,000 unit Doxycycline Hyclate 100 mg/ (Dextrose) 100 mls @ 50 mls/hr IVPB BID [facility] Last Admin: 05/15/17 22:19 Dose: 50 mls/hr CEFTRIAXONE 1 G/50 ML PREMIX (Ceftriaxone 1 Gm-D5w Bag) 50 mls @ 100 mls/hr IVPB DAILY [facility] Last Admin: 05/16/17 09:17 Dose: 100 mls/hr Ketorolac Tromethamine (Toradol Injection -) 15 mg IVPUSH Q6H PRN PRN Reason: PAIN LEVEL 4 - 6 Stop: 05/20/17 10:05 Last Admin: 05/16/17 05:40 Dose: 15 mg Methyl Salicylate (Jesus Manuel-Baron -) 1 applic TP BID [facility] Last Admin: 05/16/17 09:17 Dose: 1 applic Methylprednisolone Sodium Succinate (Solu-Medrol -) 40 mg IVPUSH Q8H-IV [facility] Last Admin: 05/16/17 09:17 Dose: 40 mg Morphine Sulfate (Morphine Injection -) 2 mg IVPUSH Q4H PRN PRN Reason: PAIN LEVEL 6-10 Last Admin: 05/16/17 04:33 Dose: 2 mg Nicotine (Nicoderm Patch -) 14 mg TD DAILY [facility] Last Admin: 05/16/17 09:16 Dose: 14 mg Nitroglycerin (Nitrostat -) 0.4 mg SL Q5M PRN PRN Reason: FOR CHEST PAIN Pantoprazole Sodium (Protonix -) 40 mg PO DAILY [facility] Last Admin: 05/16/17 09:31 Dose: 40 mg - Objective Vital Signs: Vital Signs Temperature 98 F 05/16/17 09:00 Pulse Rate 88 05/16/17 09:00 Respiratory Rate 18 05/16/17 09:00 Blood Pressure 122/78 05/16/17 09:00 O2 Sat by Pulse Oximetry (%) 91 L 05/15/17 21:00 Constitutional: Yes: Well Nourished, Calm, Mild Distress Eyes: Yes: WNL, Conjunctiva Clear, EOM Intact HENT: Yes: WNL, Atraumatic, Normocephalic Cardiovascular: Yes: Regular Rate and Rhythm, S1, S2 Respiratory: Yes: Orthopnea ...Breath Sounds: LIBIA Wheezes, LLL Wheezes, RUL Wheezes, RML Wheezes, RLL Wheezes Gastrointestinal: Yes: WNL, Normal Bowel Sounds, Soft Edema: No Labs: Labs: CBC, BMP 05/16/17 06:15 05/16/17 06:15 INR, PTT INR 1.09 (0.82-1.09) 05/14/17 15:36 <Kj Cid - Last Filed: 05/16/17 12:45> - Current Medication List Current Medications: Active Medications Albuterol/Ipratropium (Duoneb -) 1 amp NEB Q4HPO [facility] Last Admin: 05/16/17 13:44 Dose: 1 amp Albuterol/Ipratropium (Duoneb -) 1 amp NEB Q6H PRN PRN Reason: SHORTNESS OF BREATH Aspirin (Ecotrin -) 81 mg PO DAILY [facility] Last Admin: 05/16/17 09:17 Dose: 81 mg Atorvastatin Calcium (Lipitor -) 40 mg PO HS [facility] Cyclobenzaprine HCl (Flexeril -) 10 mg PO TID [facility] Last Admin: 05/16/17 13:37 Dose: 10 mg Furosemide (Lasix Injection -) 40 mg IVPUSH DAILY [facility] Last Admin: 05/16/17 09:16 Dose: 40 mg Guaifenesin (Robitussin -) 10 ml PO Q6H PRN PRN Reason: COUGH Last Admin: 05/15/17 12:02 Dose: 10 ml Heparin Sodium (Porcine) (Heparin -) 5,000 unit SQ TID [facility] Last Admin: 05/16/17 13:37 Dose: 5,000 unit Hydralazine HCl (Apresoline -) 10 mg PO BID [facility] Doxycycline Hyclate 100 mg/ (Dextrose) 100 mls @ 50 mls/hr IVPB BID [facility] Last Admin: 05/16/17 11:20 Dose: 50 mls/hr CEFTRIAXONE 1 G/50 ML PREMIX (Ceftriaxone 1 Gm-D5w Bag) 50 mls @ 100 mls/hr IVPB DAILY [facility] Last Admin: 05/16/17 09:17 Dose: 100 mls/hr Insulin Aspart (Novolog Vial Sliding Scale -) 1 vial SQ ACHS [facility] PRN Reason: Protocol Isosorbide Dinitrate (Isordil -) 5 mg PO BIDISORDIL [facility] Ketorolac Tromethamine (Toradol Injection -) 15 mg IVPUSH Q6H PRN PRN Reason: PAIN LEVEL 4 - 6 Stop: 05/20/17 10:05 Last Admin: 05/16/17 13:37 Dose: 15 mg Lisinopril (Prinivil) 2.5 mg PO DAILY [facility] Methyl Salicylate (Jesus Manuel-Baron -) 1 applic TP BID [facility] Last Admin: 05/16/17 09:17 Dose: 1 applic Methylprednisolone Sodium Succinate (Solu-Medrol -) 40 mg IVPUSH Q8H-IV [facility] Last Admin: 05/16/17 09:17 Dose: 40 mg Nicotine (Nicoderm Patch -) 14 mg TD DAILY [facility] Last Admin: 05/16/17 12:34 Dose: Not Given Nitroglycerin (Nitrostat -) 0.4 mg SL Q5M PRN PRN Reason: FOR CHEST PAIN Pantoprazole Sodium (Protonix -) 40 mg PO DAILY [facility] Last Admin: 05/16/17 09:31 Dose: 40 mg Spironolactone (Aldactone -) 12.5 mg PO DAILY [facility] - Objective Vital Signs: Vital Signs Temperature 98.2 F 05/16/17 14:10 Pulse Rate 72 05/16/17 14:10 Respiratory Rate 18 05/16/17 14:10 Blood Pressure 139/75 05/16/17 14:10 O2 Sat by Pulse Oximetry (%) 91 L 05/16/17 09:00 Labs: CBC, BMP 05/16/17 06:15 05/16/17 06:15 INR, PTT INR 1.09 (0.82-1.09) 05/14/17 15:36 <Ramy Ring - Last Filed: 05/16/17 15:38> Assessment/Plan 52 y.o. M with pmh of CHF (told by metal window screen assembler he has EF of 20%), COPD, noncompliance, presented with 1 month hx of SOB with exertion and at rest #COPD #CHF #Chronic Tobacco Abuse #Cocaine abuse -Inhaled bronchodilators (Duonebs standing/prn) -IV solumederol 40 q8h -Oxygen as needed -IV lasix -Echo reviewed, poor EF. Cardiology on board -Recommend deescalation of Abx -Explained importance of smoking cessation and regular physician followup <Kj Cid - Last Filed: 05/16/17 12:45> Patient seen and examined with the resident. Agree with findings in his note. Should also have formal sleep workup after discharge to [facility] Sleep Disordered Bleeding due to severely reduced EF. Dr Ring <Ramy Ring - Last Filed: 05/16/17 15:38>
[2017-05-16] MEDS: DOXYCYCLINE INJECTION 100 MG in DEXTROSE 5%-WATER - 100 ML IVPB SCH ×2 (11:20→22:11)
--- NOTE | 2017-05-16 11:59 | PN ---
Progress Note, Physician Chief Complaint: Pt A&Ox3; + left arm/shoulder pain constantly x weeks, exacerbated by cough or moving arm. History of Present Illness: Patient is a 52 white man with history of substance abuse (coaine in present drug screen), severe systolic LVtobacco abuse, alcohol on weekends, prior hospitalization for pneumonia (~5 years ago) and questionable history of CHF ( patient says that he was told something about his heart and 20%) here today complaining of neck pain that radiates to his chest and left arm. The pain is worse with coughing, inspiration, palpitation and movement of his arm. Patient works as a truck assembler. Denies history of blood clots, leg swelling, nausea, vomiting, fevers and chills. He states that he looked unwell enough that his co- workers took him off the job and told him to go to the hospital. Did not receive a flu shot this year. - Current Medication List Current Medications: Active Medications Albuterol/Ipratropium (Duoneb -) 1 amp NEB Q4HPO [facility] Last Admin: 05/16/17 09:03 Dose: 1 amp Albuterol/Ipratropium (Duoneb -) 1 amp NEB Q6H PRN PRN Reason: SHORTNESS OF BREATH Aspirin (Ecotrin -) 81 mg PO DAILY [facility] Last Admin: 05/16/17 09:17 Dose: 81 mg Cyclobenzaprine HCl (Flexeril -) 5 mg PO TID [facility] Last Admin: 05/16/17 05:40 Dose: 5 mg Furosemide (Lasix Injection -) 40 mg IVPUSH DAILY [facility] Last Admin: 05/16/17 09:16 Dose: 40 mg Guaifenesin (Robitussin -) 10 ml PO Q6H PRN PRN Reason: COUGH Last Admin: 05/15/17 12:02 Dose: 10 ml Heparin Sodium (Porcine) (Heparin -) 5,000 unit SQ TID [facility] Last Admin: 05/16/17 05:40 Dose: 5,000 unit Doxycycline Hyclate 100 mg/ (Dextrose) 100 mls @ 50 mls/hr IVPB BID [facility] Last Admin: 05/16/17 11:20 Dose: 50 mls/hr CEFTRIAXONE 1 G/50 ML PREMIX (Ceftriaxone 1 Gm-D5w Bag) 50 mls @ 100 mls/hr IVPB DAILY [facility] Last Admin: 05/16/17 09:17 Dose: 100 mls/hr Insulin Aspart (Novolog Vial Sliding Scale -) 1 vial SQ ACHS [facility] PRN Reason: Protocol Ketorolac Tromethamine (Toradol Injection -) 15 mg IVPUSH Q6H PRN PRN Reason: PAIN LEVEL 4 - 6 Stop: 05/20/17 10:05 Last Admin: 05/16/17 05:40 Dose: 15 mg Methyl Salicylate (Jesus Manuel-Baron -) 1 applic TP BID [facility] Last Admin: 05/16/17 09:17 Dose: 1 applic Methylprednisolone Sodium Succinate (Solu-Medrol -) 40 mg IVPUSH Q8H-IV [facility] Last Admin: 05/16/17 09:17 Dose: 40 mg Morphine Sulfate (Morphine Injection -) 2 mg IVPUSH Q4H PRN PRN Reason: PAIN LEVEL 6-10 Last Admin: 05/16/17 04:33 Dose: 2 mg Nicotine (Nicoderm Patch -) 14 mg TD DAILY [facility] Last Admin: 05/16/17 09:16 Dose: 14 mg Nitroglycerin (Nitrostat -) 0.4 mg SL Q5M PRN PRN Reason: FOR CHEST PAIN Pantoprazole Sodium (Protonix -) 40 mg PO DAILY [facility] Last Admin: 05/16/17 09:31 Dose: 40 mg - Objective Vital Signs: Vital Signs Temperature 98 F 05/16/17 09:00 Pulse Rate 88 05/16/17 09:00 Respiratory Rate 18 05/16/17 09:00 Blood Pressure 122/78 05/16/17 09:00 O2 Sat by Pulse Oximetry (%) 91 L 05/15/17 21:00 Constitutional: Yes: Anxious Eyes: Yes: WNL HENT: Yes: WNL Neck: Yes: WNL Cardiovascular: Yes: WNL Respiratory: Yes: Diminished, SOB on Exertion, Wheezes Gastrointestinal: Yes: Soft ...Rectal Exam: Yes: Deferred Genitourinary: No: Anuria Breast(s): Yes: WNL Musculoskeletal: Yes: WNL Extremities: Yes: WNL Edema: No Peripheral Pulses WNL: Yes Integumentary: Yes: WNL Neurological: Yes: WNL Psychiatric: Yes: Other (addictive personality; anxiety/depression) Labs: CBC, BMP 05/16/17 06:15 05/16/17 06:15 INR, PTT INR 1.09 (0.82-1.09) 05/14/17 15:36 Problem List - Problems (1) Acute on chronic systolic (congestive) heart failure Assessment/Plan: Severely reduced LVEF on ECHO now. ECHO from 05/2015: no significant differences. Coronary angiogram 05/2015: mil nonobstrucitve multivessel disease. LBBB on EKG (noted also in 05/2015). Cocaine in blood. Rec: Start lisinopril, spironolactone, hydralazine, and isordil dinitrate. Unable to use beta blockers while on cocaine (pt says he used it because of shoulder pain,has not used for a year, and has no plans to use it again!). F/u BUN/Cr, electrolytes (following K+ particularly important when on both ACEI and RAAS), daily weight. Is and Os. F/u TSH. As discussed with Dr. Montana, interventionalist, will forego coronary artery workup presently until medication regimen is optimized, compliance assured (pt says he has not taken medications or seen a doctor, since the angiogram 05/17, though he was told by his primary MD and the cardiac team of the need to take medications and return for f/u). Awati alcohol level. Recommend drug rehabilitation. 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 Code(s): I50.23 - ACUTE ON CHRONIC SYSTOLIC (CONGESTIVE) HEART FAILURE (2) Coronary artery disease Assessment/Plan: nonobstruive CAD on 2016 coronary angiogram. Statin. Code(s): I25.10 - ATHSCL HEART DISEASE OF [place] CORONARY ARTERY W/O ANG PCTRS (3) Substance abuse Code(s): F19.10 - OTHER PSYCHOACTIVE SUBSTANCE ABUSE, UNCOMPLICATED (4) Smokes cigarettes Code(s): F17.210 - NICOTINE DEPENDENCE, CIGARETTES, UNCOMPLICATED
[2017-05-16] MEDS ORDERED: ISOSORBIDE DINITRATE 5 MG TABLET PO SCH (14:00)
--- NOTE | 2017-05-16 14:43 | PN ---
Teaching Attending Note Name of Resident: Tremayne Hurtado ATTENDING PHYSICIAN STATEMENT Time of evaluation: 11:20 AM I saw and evaluated the patient. I reviewed the resident's note and discussed the case with the resident. I agree with the resident's findings and plan as documented. SUBJECTIVE: Patient seen and examined. left neck pain with some improvement. Breathing with some improvement. No chest pain, palpitations, or dizziness. OBJECTIVE: Vital Signs Period Temp Pulse Resp BP Sys/Sanchez Pulse Ox Last 24 Hr 98 F-98.8 F 62-88 18-20 120-128/70-78 91-93 Intake & Output 05/13/17 05/14/17 05/15/17 05/16/17 23:59 23:59 23:59 23:59 Intake Total 200 Balance 200 Weight 215 lb 215 lb general: lying in bed no acute distress Neck: some improvement in ROM left sternomastoid area with less spasm CVS:S1S2 regular Chest; scattered wheezing bilaterally but improved from yesterday Abdomen: soft, NT, ND, positive bowel sounds extremities: no edema Home Medication List Medication Instructions Recorded Confirmed Type NK [No Known Home Medication] 05/14/17 05/14/17 History Active Medications Generic Name Dose Route Start Last Admin Trade Name Freq PRN Reason Stop Dose Admin Albuterol/Ipratropium 1 amp 05/15/17 02:00 05/16/17 13:44 Duoneb - NEB 1 amp Q4HPO [facility] Administration Albuterol/Ipratropium 1 amp 05/15/17 00:10 Duoneb - NEB Q6H PRN SHORTNESS OF BREATH Aspirin 81 mg 05/15/17 10:00 05/16/17 09:17 Ecotrin - PO 81 mg DAILY [facility] Administration Atorvastatin Calcium 40 mg 05/16/17 22:00 Lipitor - PO HS [facility] Cyclobenzaprine HCl 10 mg 05/16/17 14:00 05/16/17 13:37 Flexeril - PO 10 mg TID [facility] Administration Furosemide 40 mg 05/15/17 10:00 05/16/17 09:16 Lasix Injection - IVPUSH 40 mg DAILY [facility] Administration Guaifenesin 10 ml 05/15/17 09:58 05/15/17 12:02 Robitussin - PO 10 ml Q6H PRN Administration COUGH Heparin Sodium (Porcine) 5,000 unit 05/15/17 06:00 05/16/17 13:37 Heparin - SQ 5,000 unit TID [facility] Administration Hydralazine HCl 10 mg 05/16/17 22:00 Apresoline - PO BID [facility] Doxycycline Hyclate 100 mg/ 100 mls @ 50 mls/hr 05/15/17 22:00 05/16/17 11:20 Dextrose IVPB 50 mls/hr BID [facility] Administration CEFTRIAXONE 1 G/50 ML PREMIX 50 mls @ 100 mls/hr 05/15/17 17:30 05/16/17 09: 17 Ceftriaxone 1 Gm-D5w Bag IVPB 100 mls/hr DAILY [facility] Administration Insulin Aspart 1 vial 05/16/17 16:30 Novolog Vial Sliding Scale - SQ ACHS [facility] Protocol Isosorbide Dinitrate 5 mg 05/16/17 14:01 Isordil - PO BIDISORDIL [facility] Ketorolac Tromethamine 15 mg 05/15/17 10:06 05/16/17 13:37 Toradol Injection - IVPUSH 05/20/17 10:05 15 mg Q6H PRN Administration PAIN LEVEL 4 - 6 Lisinopril 2.5 mg 05/17/17 10:00 Prinivil PO DAILY [facility] Methyl Salicylate 1 applic 05/15/17 10:15 05/16/17 09:17 Jesus Manuel-Baron - TP 1 applic BID [facility] Administration Methylprednisolone Sodium Succinate 40 mg 05/15/17 10:15 05/16/17 09:17 Solu-Medrol - IVPUSH 40 mg Q8H-IV [facility] Administration Nicotine 14 mg 05/15/17 14:45 05/16/17 12:34 Nicoderm Patch - TD Not Given DAILY [facility] Nitroglycerin 0.4 mg 05/14/17 22:17 Nitrostat - SL Q5M PRN FOR CHEST PAIN Pantoprazole Sodium 40 mg 05/15/17 14:45 05/16/17 09:31 Protonix - PO 40 mg DAILY [facility] Administration Spironolactone 12.5 mg 05/17/17 10:00 Aldactone - PO DAILY [facility] Laboratory Results - last 24 hr 05/15/17 05/16/17 05/16/17 06:57 06:15 06:15 WBC 19.0 H D RBC 4.70 Hgb 14.8 Hct 44.5 MCV 94.6 MCH 31.5 MCHC 33.3 RDW 12.9 Plt Count 205 MPV 9.8 Neutrophils % 89.4 H Lymphocytes % 6.3 L D Monocytes % 4.2 Eosinophils % 0.0 Basophils % 0.1 Sodium 141 Potassium 4.7 Chloride 107 Carbon Dioxide 27 Anion Gap 7 L BUN 21 H Creatinine 0.9 Random Glucose 146 H Hemoglobin A1c % 6.5 H Calcium 8.8 Phosphorus 3.6 Magnesium 2.2 Microbiology 05/15/17 06:20 Sputum - Expectorated Gram Stain - Final 05/15/17 06:20 Sputum - Expectorated Sputum Culture - Preliminary NORMAL RESPIRATORY JAREK 05/14/17 22:30 Urine - Urine Clean Catch Urine Culture - Final NO GROWTH OBTAINED 05/14/17 18:10 Blood - Peripheral Venous Blood Culture - Preliminary NO GROWTH OBTAINED AFTER 24 HOURS, INCUBATION TO CONTINUE FOR 4 DAYS. 05/14/17 18:10 Blood - Peripheral Venous Blood Culture - Preliminary NO GROWTH OBTAINED AFTER 24 HOURS, INCUBATION TO CONTINUE FOR 4 DAYS. 05/15/17 12:14 Nasopharyngeal Swab Influenza Types A,B Antigen (MIKEY) - Preliminary 05/15/17 12:14 Nasopharyngeal Swab - Preliminary 05/14/17 22:30 Urine For Antigen Detection Legionella Antigen - Final 05/14/17 22:30 Urine For Antigen Detection Streptococcus pneumoniae Antigen (M - Final 2D echo results reviewed ASSESSMENT AND PLAN: 52 yom with PMhx of tobacco/cocaine abuse, CHF (?EF 20%), admitted with left neck pain,dyspnea, wheezing. -left neck pain radiating down to chest/LUE, ?radicular pain from C-spine stenosis, vs musculoskeletal. CT neck neg for acute concerns -Acute hypoxic/hypercapneic respiratory insufficiency, likely acute COPD exacerbation from ?recent URI +/- acute systolic heart failure exacerbation -Cardiomyopathy, suspect ischemic from non compliance associated with cocaine/ alcohol use -Tobacco dependence -Cocaine abuse -Depression -LBBB, Old -Leucocytosis, recurrent, ?Steroid induced. Plan: 2D echo noted, Discussed with Dr. Winter, patient with cardiac cath 2 years ago when was found with non obstructive CAD and recommended medical management, EF 30% then. However patient did not follow up with any physicians or complied with advised medical regimen. Plan for medical optimization currently, also given active COPD exac/URI symptoms, not a candidate currently. Started on lisinopril/Spironolactone/Nitrates/statin. Not beta vidal for now given active cocaine use. Known old LBBB. COntinue lasix 40 mg IV daily with strict I/Os, transition to oral in AM. Monitor renal function and lytes closely. Continue solumedrol 40 mg IV q8h, standing and prn nebs, oxygen suppl. Sputum cultures noted, ceftriaxone/doxycycline day 2, plan for 5 day course if no events. Influenza/PNA studies neg. Recurrent leucocytosis likely from steroids, trend for now. MRI C-spine/Neck, increase flexeril, toradol for additional 1-2 days, then d/c. D/c morphine. Topical bengay/hot packs, PT. Carotid dopplers/CT neck noted. Also concerns for cocaine/ETOH/depression but no active SI. psych consult with Dr. Bonilla. DVTPPX Dispo pending improvement in medical issues. Home vs possible transfer to tertiary care for ischemic w/u based on cardiology recs. Plan discussed with patient in detail, all questions answered. Stressed about the need for medication compliance and his risk for sudden cardiac if continued with current cocaine/alcohol/tobacco use and lack of follow up. Patient relays risks and agrees to comply with the same.
--- NOTE | 2017-05-16 17:00 | PN ---
Physical Exam: SUBJECTIVE: Patient seen and examined No acute events overnight. Pt reports slightly improving neck pain radiating down his left arm with numbness and parasthesias. He complains of persistent SOB with a hacking cough, but denies palpitations, n/v/d/c, and dysuria. He endorses hematuria. OBJECTIVE: Vital Signs Period Temp Pulse Resp BP Sys/Sanchez Pulse Ox Last 24 Hr 98 F-98.8 F 62-88 18-20 120-139/70-78 91-93 GENERAL: middle aged male, lying in bed, in mild distress, coughing HEENT: NC, AT, EOMI NECK: no JVD, limited ROM due to pain LUNGS: poor respiratory effort, diffuse wheezing and rhonchi HEART: Regular rate and rhythm, S1, S2 without murmur, rub or gallop. ABDOMEN: obese, soft, NT EXTREMITIES: 2+ pulses, warm, well-perfused, no edema. NEUROLOGICAL: Cranial nerves II through XII grossly intact. Normal speech, gait not observed. Laboratory Results - last 24 hr 05/15/17 05/16/17 05/16/17 06:57 06:15 06:15 WBC 19.0 H D RBC 4.70 Hgb 14.8 Hct 44.5 MCV 94.6 MCH 31.5 MCHC 33.3 RDW 12.9 Plt Count 205 MPV 9.8 Neutrophils % 89.4 H Lymphocytes % 6.3 L D Monocytes % 4.2 Eosinophils % 0.0 Basophils % 0.1 Sodium 141 Potassium 4.7 Chloride 107 Carbon Dioxide 27 Anion Gap 7 L BUN 21 H Creatinine 0.9 Random Glucose 146 H Hemoglobin A1c % 6.5 H Calcium 8.8 Phosphorus 3.6 Magnesium 2.2 Active Medications Generic Name Dose Route Start Last Admin Trade Name Freq PRN Reason Stop Dose Admin Albuterol/Ipratropium 1 amp 05/15/17 02:00 05/16/17 13:44 Duoneb - NEB 1 amp Q4HPO DENIA Administration Albuterol/Ipratropium 1 amp 05/15/17 00:10 Duoneb - NEB Q6H PRN SHORTNESS OF BREATH Aspirin 81 mg 05/15/17 10:00 05/16/17 09:17 Ecotrin - PO 81 mg DAILY DENIA Administration Atorvastatin Calcium 40 mg 05/16/17 22:00 Lipitor - PO HS DENIA Cyclobenzaprine HCl 10 mg 05/16/17 14:00 05/16/17 13:37 Flexeril - PO 10 mg TID DENIA Administration Furosemide 40 mg 05/15/17 10:00 05/16/17 09:16 Lasix Injection - IVPUSH 40 mg DAILY DENIA Administration Guaifenesin 10 ml 05/15/17 09:58 05/15/17 12:02 Robitussin - PO 10 ml Q6H PRN Administration COUGH Heparin Sodium (Porcine) 5,000 unit 05/15/17 06:00 05/16/17 13:37 Heparin - SQ 5,000 unit TID [facility] Administration Hydralazine HCl 10 mg 05/16/17 22:00 Apresoline - PO BID [facility] Doxycycline Hyclate 100 mg/ 100 mls @ 50 mls/hr 05/15/17 22:00 05/16/17 11:20 Dextrose IVPB 50 mls/hr BID DENIA Administration CEFTRIAXONE 1 G/50 ML PREMIX 50 mls @ 100 mls/hr 05/15/17 17:30 05/16/17 09: 17 Ceftriaxone 1 Gm-D5w Bag IVPB 100 mls/hr DAILY [facility] Administration Insulin Aspart 1 vial 05/16/17 16:30 Novolog Vial Sliding Scale - SQ ACHS [facility] Protocol Isosorbide Dinitrate 5 mg 05/16/17 14:01 Isordil - PO BIDISORDIL [facility] Ketorolac Tromethamine 15 mg 05/15/17 10:06 05/16/17 13:37 Toradol Injection - IVPUSH 05/20/17 10:05 15 mg Q6H PRN Administration PAIN LEVEL 4 - 6 Lisinopril 2.5 mg 05/17/17 10:00 Prinivil PO DAILY [facility] Methyl Salicylate 1 applic 05/15/17 10:15 05/16/17 09:17 Jesus Manuel-Baron - TP 1 applic BID [facility] Administration Methylprednisolone Sodium Succinate 40 mg 05/15/17 10:15 05/16/17 09:17 Solu-Medrol - IVPUSH 40 mg Q8H-IV [facility] Administration Nicotine 14 mg 05/15/17 14:45 05/16/17 12:34 Nicoderm Patch - TD Not Given DAILY [facility] Nitroglycerin 0.4 mg 05/14/17 22:17 Nitrostat - SL Q5M PRN FOR CHEST PAIN Pantoprazole Sodium 40 mg 05/15/17 14:45 05/16/17 09:31 Protonix - PO 40 mg DAILY DENIA Administration Spironolactone 12.5 mg 05/17/17 10:00 Aldactone - PO DAILY [facility] ASSESSMENT/PLAN: 52 M with pmhx of questionable CHF who presents with neck pain that radiates down to his arm/chest and with shortness of breath, admitted for CHF vs. COPD exacerbation and r/o ACS. #Chest Pain - R/O ACS: trops- 0.03--> 0.02. EKG NSR - pain control with toradol, morphine d/c'd - Avoid BB as hx. of Cocaine use - echo results appreciated - Cardio on board, recs appreciated. [facility] records obtained. started lisinopril , spironolactone, hydralazine, and isordil dinitrate. Will optimize medication regimen and assure compliance before coronary artery workup. -f/u TSH -f/u alcohol level -started lipitor due to 10 year ASCVD score of 16.4%. #DM -a1c: 6.5; explained to pt -BGM ACHS, ISS #hx of depression -consulted psych, f/u recs #hematuria -f/u UA #CHF vs. COPD exacerbation - pt not clinically overloaded- no JVD appreciated, no LE edema, but BNP of 2017 - IV lasix 40 - Daily weights, strict I/Os - Echo results appreciated - duonebs standing and PRN - solumedrol - pulmonary consulted, recs appreciated: outpt PFTs #leukocytosis -wbc of 8--> 19, likely 2/2 steroids -continue to follow -no fever #Carotid Artery Atherosclerosis on CT - Carotid US: no hemodynamically significant stenosis #radiating neck pain to left arm -likely 2/2 central canal stenosis of C3-C4 and C5-C6 as seen on CT neck -pain control with flexeril, toradol, and morphine -will consider neurosurg eval #polysubstance abuse -smoking cessation counseling -nicotine patch -cocaine cessation counseling #prolonged QTc -QTc of 499 on EKG -avoid QT prolonging agents #FEN/ppx -po fluids -electrolytes wnl -sodium controlled diet -protonix for GI ppx -heparin 5000U TID Will call sister (Zoila Felix at [phone] Plan discussed with attending, Dr. Nowak. Tremayne Hurtado MD PGY1 Visit type - Emergency Visit Emergency Visit: Yes ED Registration Date: 05/14/17 Care time: The patient presented to the Emergency Department on the above date and was hospitalized for further evaluation of their emergent condition. - New Patient This patient is new to me today: No - Critical Care Critical Care patient: No
--- NOTE | 2017-05-16 17:38 | CON.NEURO ---
Consult - History of Present Illness History of Present Illness: 52 M with pmhx of CHF, COPD? cardiomyopathy who presented with neck pain that radiates down to his arm. Also notes associated shortness of breath on exertion one month in duration. States his neck pain started Saturday. He does not note any injuries. States pain radiated to his left arm, chest area. States several years ago he was admitted to the hospital for pneumonia. Also, notes they found he had a cardiac problem at that time and a echo was done which showed a EF of 20%. Denies any chest pain, pressure, or shortness of breath currently. -Pt. reports he began having pain in left side of his neck last week Saturday, it crescendoed to intense pain Saturday night,radiated down to chest and left arm, is almost gone now and was acc. by tingling paresthesias in arm and hand(not able to localize to any fingers. He denies having had such symptoms in the past. He admits to using cocaine sporadically"3 times/year, last used it this past Saturday night. He denies feeling depressed or anxious now and in the past except"at the time of my divorce i had some depression. Denies all psychiatric symptoms, states in last 2-3 days"i have been down because i am back in the hospital again but i am not depressed. - Past Medical History Cardio/Vascular: Yes: CHF - Alcohol/Substance Use Hx Alcohol Use: Yes - Smoking History Smoking history: Current every day smoker Aproximately how many cigarettes per day: 10 Home Medications - Allergies Allergies/Adverse Reactions: Allergies Allergy/AdvReac Type Severity Reaction Status Date / Time No Known Allergies Allergy Verified 05/14/17 15:10 - Home Medications Home Medications: Ambulatory Orders NK [No Known Home Medication] 05/14/17 Physical Exam-Neuro Vital Signs: Vital Signs Temperature 98.2 F 05/16/17 14:10 Pulse Rate 72 05/16/17 14:10 Respiratory Rate 18 05/16/17 14:10 Blood Pressure 139/75 05/16/17 14:10 O2 Sat by Pulse Oximetry (%) 91 L 05/16/17 09:00 Labs: CBC, BMP 05/16/17 06:15 05/16/17 06:15 INR, PTT INR 1.09 (0.82-1.09) 05/14/17 15:36 - Neuro Exam Level Of Consciousness: Yes: Alert, Oriented to Person, Oriented to Place, Oriented to Time Eyes: Yes: PERRL Speech: WNL Dominant Hand: Right Mini Mental Exam: Well-oriented. Mood-dysphoric, Affect-anxious, Cognition- intact attention/concentration, Delusions/hallucinations-none elicited, Insight/ judgement-fair, Suicidal/homicidal thoughts-denies ideation/intent/plan, Impulse control-at this time is fair DTR's: 1+ Left Bicep, 1+ Left Tricep, 2+ Right Bicep, 2+ Right Tricep, 2+ Left Brachioradialis, 2+ Right Brachioradialis, 2+ Left Achilles, 2+ Right Achilles Motor Strength: 5/5: Left Arm, Right Arm, Left Leg, Right Leg (Left APB(thumb abductor)-4/5(supplied by C6 and median nerve)) Gait: Normal Assessment/Plan 1) Neck pain-likly acute C5/C6 radiculopathy, now improving-if symptoms recur would place on Gabapentin 300mg hs x 5 days than twice daily. I will obtain MRI cspine/EMGs as outpatient 2) Depression- he appears to have a substance induced mood disorder given cocaine use-thgis is usually self limited. I have discussed treatment for cocaine use/treatment options but he does not wish to go for this. gabapentin has some role in treating cocaine use-i will place him on it as outpt. Counselled against cocaine use/risks.Pt. will call my office for f/u. Thank you, Amanda Bonilla MD
[2017-05-16] MEDS: INSULIN SLIDING SCALE (NOVOLOG) 1 VIAL SQ SCH ×2 (18:07→22:30)
[2017-05-16] MEDS: ISOSORBIDE DINITRATE 5 MG TABLET PO SCH (18:11)
[2017-05-16] MEDS: ATORVASTATIN CA 40 MG TABLET (FP) PO SCH (22:10)
[2017-05-16] MEDS: hydrALAZINE HCL 10 MG TABLET PO SCH (22:10)
[2017-05-17] MEDS: methylPREDNISolone NA SUCC 40 MG/1 ML VIAL IVPUSH SCH ×2 (01:41→10:38)
[2017-05-17] MEDS: ALBUTEROL SO4 2.5/IPRATROPIUM 0.5 INH SOL 3 ML VIAL.NEB. NEB SCH ×6 (02:15→22:10)
[2017-05-17] MEDS: KETOROLAC TROMETHAMINE 15 MG/ML VIAL IVPUSH PRN ×2 (03:00→17:24)
[2017-05-17] MEDS: HEPARIN NA (PORCINE) 5,000 UNITS/ML 1ML VIAL SQ SCH ×3 (05:14→22:30)
[2017-05-17] MEDS: CYCLOBENZAPRINE HCL 10 MG TABLET (FP) PO SCH ×3 (05:14→22:29)
[2017-05-17] MEDS: INSULIN SLIDING SCALE (NOVOLOG) 1 VIAL SQ SCH ×4 (07:17→22:35)
[2017-05-17 07:29] LABS: HEMATOCRIT 46.3 % (35.4-49); HEMOGLOBIN 15.2 GM/dL (11.7-16.9); MCH 31.2 pg (25.7-33.7); MCHC 32.8 g/dl (32.0-35.9); MEAN CELL VOLUME 95.2 fl (80-96); MEAN PLT VOLUME 9.8 fl (7.5-11.1); PLATELET COUNT 238 K/MM3 (134-434); RBC 4.87 M/mm3 (4.00-5.60); RDW 13.1 % (11.9-15.9)
--- NOTE | 2017-05-17 07:30 | MSN ---
Progress Note (short form) - Note Progress Note: Subjective: Patient was seen this morning states that his neck pain/ chest pain has improved and breathing slightly improved. Patient still has cough that is rarely productive for thick yellow sputum. Patient denies N/V/D, abdominal pain. Objective: Last Vital Signs Temp Pulse Resp BP Pulse Ox 98.1 F 76 20 134/86 91 L 05/17/17 02:00 05/17/17 06:00 05/17/17 06:00 05/17/17 06:00 05/16/17 21:00 Intake & Output 05/14/17 05/15/17 05/16/17 05/17/17 23:59 23:59 23:59 23:59 Intake Total 200 280 100 Output Total 600 Balance 200 -320 100 Weight 215 lb 215 lb General: patient was resting comfortably and in no acute distress HEENT: atraumatic, normocephalic, no lymphadenopathy noted Heart: distant heart sounds. RRR, no rubs murmurs or gallops appreciated. Lungs: diffuse wheezing throughout with inspiration and expiration. slightly improved airflow. Abdomen: protuberant, non-tender to palpation, normoactive bowel sounds x4 Extremities: pulses 2+ b/l on UE and LE, well perfused. CBC, BMP 05/17/17 07:10 05/17/17 07:10 Abnormal Lab Results 05/16/17 05/17/17 05/17/17 18:00 07:10 07:10 WBC 18.0 H Anion Gap 7 L BUN 28 H D Random Glucose 132 H TSH 0.25 L Imaging: Echo 05/15: EF 29% left ventricle mildly dilated, moderate to severe global hypokinesis of the left ventricle. moderate aortic root dilation. CXR 05/15 No evidence of active pulmonary disease. Carotid doppler US 05/15 A small amount of atherosclerotic plaque is identified at the carotid bifurcations bilaterally. Mild atherosclerotic disease with no evidence of hemodynamically significant stenoses. Neck CT with contrast 05/[address] evidence of acute pathology. Atherosclerotic carotid artery calcifications are noted which are probably more prominent than would be expected for the patient's chronologic age. Correlate with clinical risk factors. C3-C4 and C5-C6 central canal stenosis which is probably moderate to marked. Chest CTA 05/[address] evidence of acute pathology. Atherosclerotic carotid artery calcifications are noted which are probably more prominent than would be expected for the patient's chronologic age. Correlate with clinical risk factors. C3-C4 and C5-C6 central canal stenosis which is probably moderate to marked Plan/ Assessment: 52 yo M with an unknown medical history, possible CHF, who presented with severe left sided neck/ chest pain for 3 days and worsening shortness of breath for the past month likely due to undiagnosed COPD, heart failure, cervical stenosis. # chest pain - r/o ACS trops 0.03- 0.02 - EKG shows LBBB, prolonged QTc of 499. LBBB on EKG in 2016 - coronary angiogram on 05/2015 showed mild nonobstructive multivessel disease. - nitroglycerin prn - cardiac monitoring - telemetry - lipid panel wnl - aspirin 81mg po daily - echo EF 29%. no significant changes from 2016. - exacerbated by cough - Robitussin - per cardio consult Dr. Winter - start lisinopril, spironoloactone, hydralazine and isordil dinitrate. # possible CHF vs COPD exacerbation - lasix 40mg IVPush daily - ABG 05/15 shows mild respiratory acidosis - keep O2 sats >92% - pulm consult -Dr. Stevenson, may need PFT outpt - duoneb q6h prn - sputum: gram + cocci in clusters and chains, doxycycline 100mg, ceftriaxone 1g day 3. continue doxycycline for 2 more days, discontinue ceftriaxone today. - prednisone 20mg today, 60mg starting tomorrow. # radiating neck pain likely secondary to C3-C6 stenosis or muscle spasm from coughing - carotid doppler shows mild atherosclerosis on bifurcation, no hemodynamically significant stenosis - neck CT shows moderate C3-C4, C5-C6 central canal stenosis - Cspine MRI, MRA neck. consult neurosurgery - pain control with flexeril 5mg TID, toradol, and bengay. increase dose of flexeril to 10mg. - add neurontin 300mg - f/u outpt with Dr. Bonilla, plan on Gabapentin 300mg hs x 5 days then twice daily. MRI cspine/EMGs as outpatient # new diagnosis of DM - A1C 6.5 - patient education, diet/ exercise recommendation - insulin sliding scale # HTN - lasix - lisinopril 2.5mg, spironolactone 12.5mg, hydralazine 10mg - avoid BB due to recent cocaine use # polysubstance abuse - community health counselor on smoking cessation, cocaine cessation - nicotine patch #FEN/ppx - F: po fluids - E: electrolytes wnl - N: diabetic, sodium controlled diet - GI: protonix for GI ppx - DVT prophylaxis: heparin 5000U TID
[2017-05-17 07:50] LABS: ANION GAP 7 (8-16); BLOOD UREA NITROGEN 28 mg/dL (7-18); CALCIUM 8.9 mg/dL (8.5-10.1); CHLORIDE 105 mmol/L (98-107); CO2 28 mmol/L (21-32); GLUCOSE,RANDOM 132 mg/dL (74-106); POTASSIUM 4.7 mmol/L (3.5-5.1); SODIUM 140 mmol/L (136-145)
[2017-05-17 08:34] LABS: URINE APPEARANCE CLEAR; URINE BILIRUBIN NEGATIVE (NEGATIVE); URINE BLOOD NEGATIVE (NEGATIVE); URINE COLOR YELLOW; URINE GLUCOSE (UA) NEGATIVE (NEGATIVE); URINE KETONE NEGATIVE (NEGATIVE); URINE LEUK ESTERASE NEGATIVE (NEGATIVE); URINE NITRITE NEGATIVE (NEGATIVE); URINE PROTEIN NEGATIVE (NEGATIVE); URINE UROBILINOGEN NEGATIVE mg/dL (0.2-1.0)
[2017-05-17] MEDS ORDERED: FLU VACCINE QUAD 60 MCG/0.5 ML (MDV 17-18) IM ONE (10:00)
[2017-05-17] MEDS ORDERED: LISINOPRIL 5 MG TABLET (FP) PO SCH (10:00)
[2017-05-17] MEDS: guaiFENesin 200 MG/10 ML 10 ML UNIT-DOSE CUPS PO PRN (10:38)
[2017-05-17] MEDS: PANTOPRAZOLE 40 MG TABLET (FP) PO SCH (10:38)
[2017-05-17] MEDS: FUROSEMIDE 40 MG/4 ML INJECTABLE VIAL IVPUSH SCH (10:38)
[2017-05-17] MEDS: SPIRONOLACTONE 25 MG TABLET (FP) PO SCH (10:39)
[2017-05-17] MEDS: CEFTRIAXONE 1 G/50 ML PREMIX 50 ML IVPB SCH (10:39)
[2017-05-17] MEDS: hydrALAZINE HCL 10 MG TABLET PO SCH ×2 (10:39→22:29)
[2017-05-17] MEDS: ASPIRIN COATED 81 MG TABLET.EC PO SCH (10:39)
[2017-05-17] MEDS: METHYL SALICYLATE/MENTHOL OINT 30 GM TUBE TP SCH ×2 (10:40→22:33)
[2017-05-17] MEDS: DOXYCYCLINE INJECTION 100 MG in DEXTROSE 5%-WATER - 100 ML IVPB SCH (10:41)
[2017-05-17] MEDS: ISOSORBIDE DINITRATE 5 MG TABLET PO SCH ×2 (10:41→17:22)
--- NOTE | 2017-05-17 11:41 | PN ---
Teaching Attending Note Name of Resident: Kj Cid ATTENDING PHYSICIAN STATEMENT I saw and evaluated the patient. I reviewed the resident's note and discussed the case with the resident. I agree with the resident's findings and plan as documented. PULMONARY ALERT,STILL CONGESTED C/O CHEST DISCOMFORT OBJECTIVE:IMP DYSPNEA COPD EXACERBATION CHF CARDIOMYOPATHY TOBACCO ABUSE PLAN LASIX O2 INHALED BRONCHODILATORS STEROIDS SAME DOSE CE PFTS OUTPATIENT SMOKING CESSATION COUNSELED SLEEP SCREEN MONITOR BLOOD SUGARS DEESCALATION ABX DR NORTON Problem List - Problems (1) COPD with exacerbation Code(s): J44.1 - CHRONIC OBSTRUCTIVE PULMONARY DISEASE W (ACUTE) EXACERBATION (2) Coronary artery disease Code(s): I25.10 - ATHSCL HEART DISEASE OF [place] CORONARY ARTERY W/O ANG PCTRS (3) Substance abuse Code(s): F19.10 - OTHER PSYCHOACTIVE SUBSTANCE ABUSE, UNCOMPLICATED (4) Tobacco abuse Code(s): Z72.0 - TOBACCO USE (5) Acute on chronic systolic (congestive) heart failure Code(s): I50.23 - ACUTE ON CHRONIC SYSTOLIC (CONGESTIVE) HEART FAILURE (6) Chest pain Code(s): R07.9 - CHEST PAIN, UNSPECIFIED Qualifiers: Chest pain type: unspecified Qualified Code(s): R07.9 - Chest pain, unspecified (7) Tobacco abuse counseling Code(s): Z71.6 - TOBACCO ABUSE COUNSELING
[2017-05-17] MEDS: NICOTINE 14 MG/24 HOURS TOPICAL PATCH TD SCH (12:09)
[2017-05-17] MEDS ORDERED: predniSONE 20 MG TABLET (UD) PO ONE (15:00)
--- NOTE | 2017-05-17 15:11 | PN ---
<Tremayne Hurtado - Last Filed: 05/17/17 15:12> Physical Exam: SUBJECTIVE: Patient seen and examined No acute events overnight. Pt reports slightly improving neck pain radiating down his left arm with numbness and parasthesias. He complains of persistent SOB with a hacking cough, but denies palpitations, n/v/d/c, and dysuria. OBJECTIVE: Vital Signs Period Temp Pulse Resp BP Sys/Sanchez Pulse Ox Last 24 Hr 98 F-99.6 F 61-104 18-20 114-148/55-86 91-92 GENERAL: middle aged male, lying in bed, in mild distress, coughing HEENT: NC, AT, EOMI NECK: no JVD, limited ROM due to pain LUNGS: poor respiratory effort, decreased wheezing and rhonchi HEART: Regular rate and rhythm, S1, S2 without murmur, rub or gallop. ABDOMEN: obese, soft, NT EXTREMITIES: 2+ pulses, warm, well-perfused, no edema. NEUROLOGICAL: Cranial nerves II through XII grossly intact. Normal speech, gait not observed. Laboratory Results - last 24 hr 05/16/17 05/16/17 05/16/17 17:32 18:00 18:00 WBC RBC Hgb Hct MCV MCH MCHC RDW Plt Count MPV Sodium Potassium Chloride Carbon Dioxide Anion Gap BUN Creatinine POC Glucometer 137 Random Glucose Calcium TSH 0.25 L Urine Color Urine Appearance Urine pH Ur Specific [place] Urine Protein Urine Glucose (UA) Urine Ketones Urine Blood Urine Nitrite Urine Bilirubin Urine Urobilinogen Ur Leukocyte Esterase Alcohol, Quantitative < 5.0 05/16/17 05/16/17 05/17/17 18:00 22:27 05:09 WBC RBC Hgb Hct MCV MCH MCHC RDW Plt Count MPV Sodium Potassium Chloride Carbon Dioxide Anion Gap BUN Creatinine POC Glucometer 163 146 Random Glucose Calcium TSH Urine Color Yellow Urine Appearance Clear Urine pH 6.0 Ur Specific [place] 1.026 Urine Protein Negative Urine Glucose (UA) Negative Urine Ketones Negative Urine Blood Negative Urine Nitrite Negative Urine Bilirubin Negative Urine Urobilinogen Negative Ur Leukocyte Esterase Negative Alcohol, Quantitative 05/17/17 05/17/17 05/17/17 07:10 07:10 12:22 WBC 18.0 H RBC 4.87 Hgb 15.2 Hct 46.3 MCV 95.2 MCH 31.2 MCHC 32.8 RDW 13.1 Plt Count 238 MPV 9.8 Sodium 140 Potassium 4.7 Chloride 105 Carbon Dioxide 28 Anion Gap 7 L BUN 28 H D Creatinine 1.0 POC Glucometer 168 Random Glucose 132 H Calcium 8.9 TSH Urine Color Urine Appearance Urine pH Ur Specific [place] Urine Protein Urine Glucose (UA) Urine Ketones Urine Blood Urine Nitrite Urine Bilirubin Urine Urobilinogen Ur Leukocyte Esterase Alcohol, Quantitative Active Medications Generic Name Dose Route Start Last Admin Trade Name Freq PRN Reason Stop Dose Admin Albuterol/Ipratropium 1 amp 05/15/17 02:00 05/17/17 14:12 Duoneb - NEB 1 amp Q4HPO DENIA Administration Albuterol/Ipratropium 1 amp 05/15/17 00:10 Duoneb - NEB Q6H PRN SHORTNESS OF BREATH Aspirin 81 mg 05/15/17 10:00 05/17/17 10:39 Ecotrin - PO 81 mg DAILY DENIA Administration Atorvastatin Calcium 40 mg 05/16/17 22:00 05/16/17 22:10 Lipitor - PO 40 mg HS DENIA Administration Cyclobenzaprine HCl 5 mg 05/17/17 07:21 05/17/17 13:41 Flexeril - PO 5 mg TID DENIA Administration Doxycycline Hyclate 100 mg 05/17/17 18:00 Vibramycin - PO BID@1000,1800 [facility] Furosemide 40 mg 05/15/17 10:00 05/17/17 10:38 Lasix Injection - IVPUSH 40 mg DAILY DENIA Administration Gabapentin 300 mg 05/17/17 22:00 Neurontin - PO HS DENIA Guaifenesin 10 ml 05/15/17 09:58 05/17/17 10:38 Robitussin - PO 10 ml Q6H PRN Administration COUGH Heparin Sodium (Porcine) 5,000 unit 05/15/17 06:00 05/17/17 13:41 Heparin - SQ 5,000 unit TID DENIA Administration Hydralazine HCl 10 mg 05/16/17 22:00 05/17/17 10:39 Apresoline - PO 10 mg BID DENIA Administration Insulin Aspart 1 vial 05/16/17 16:30 05/17/17 12:54 Novolog Vial Sliding Scale - SQ Not Given ACHS [facility] Protocol Isosorbide Dinitrate 5 mg 05/16/17 14:01 05/17/17 10:41 Isordil - PO 5 mg BIDISORDIL DENIA Administration Ketorolac Tromethamine 15 mg 05/15/17 10:06 05/17/17 03:00 Toradol Injection - IVPUSH 05/20/17 10:05 15 mg Q6H PRN Administration PAIN LEVEL 4 - 6 Lisinopril 2.5 mg 05/17/17 10:00 05/17/17 10:39 Prinivil PO 2.5 mg DAILY DENIA Administration Methyl Salicylate 1 applic 05/15/17 10:15 05/17/17 10:40 Jesus Manuel-Baron - TP 1 applic BID DENIA Administration Nicotine 14 mg 05/15/17 14:45 05/17/17 12:09 Nicoderm Patch - TD Not Given DAILY DENIA Nitroglycerin 0.4 mg 05/14/17 22:17 Nitrostat - SL Q5M PRN FOR CHEST PAIN Pantoprazole Sodium 40 mg 05/15/17 14:45 05/17/17 10:38 Protonix - PO 40 mg DAILY DENIA Administration Prednisone 60 mg 05/18/17 10:00 Deltasone - PO DAILY DENIA Spironolactone 12.5 mg 05/17/17 10:00 05/17/17 10:39 Aldactone - PO 12.5 mg DAILY DENIA Administration ASSESSMENT/PLAN: 52 M with pmhx of questionable CHF who presents with neck pain that radiates down to his arm/chest and with shortness of breath, admitted for CHF vs. COPD exacerbation and r/o ACS. #Chest Pain - R/O ACS: trops- 0.03--> 0.02. EKG NSR - pain control with toradol, morphine d/c'd - Avoid BB as hx. of Cocaine use - echo results appreciated - Cardio on board, recs appreciated. [facility] records obtained. started lisinopril , spironolactone, hydralazine, and isordil dinitrate. Will optimize medication regimen and assure compliance before coronary artery workup. -TSH: 0.25. f/u free T4 and free T3 -alcohol level: < 5 -continue lipitor #DM -BGM ACHS, ISS #hx of depression -psych on board, recs appreciated: rec gabapentin #hematuria -UA: negative #CHF vs. COPD exacerbation - pt not clinically overloaded- no JVD appreciated, no LE edema, but BNP of 2017 - IV lasix 40 - Daily weights, strict I/Os - Echo results appreciated - duonebs standing and PRN - solumedrol changed to prednisone - pulmonary consulted, recs appreciated: outpt PFTs and sleep study -ceftriaxone stopped after 3 day course. continue doxycyline. #leukocytosis -wbc of 8--> 19--> 18, likely 2/2 steroids -continue to follow -no fever #Carotid Artery Atherosclerosis on CT - Carotid US: no hemodynamically significant stenosis #radiating neck pain to left arm -likely 2/2 central canal stenosis of C3-C4 and C5-C6 as seen on CT neck -pain control with flexeril, toradol, and gabapentin -will consider neurosurg eval -PT #polysubstance abuse -smoking cessation counseling -nicotine patch -cocaine cessation counseling #prolonged QTc -QTc of 499 on EKG -avoid QT prolonging agents #FEN/ppx -po fluids -electrolytes wnl -sodium controlled diet -protonix for GI ppx -heparin 5000U TID Plan discussed with attending, Dr. Nowak. Tremayne Hurtado MD PGY1 Visit type - Emergency Visit Emergency Visit: Yes ED Registration Date: 05/14/17 Care time: The patient presented to the Emergency Department on the above date and was hospitalized for further evaluation of their emergent condition. - New Patient This patient is new to me today: No - Critical Care Critical Care patient: No <Kenisha Nowak - Last Filed: 05/17/17 17:50> Physical Exam: Patient seen and examined with Dr. Hurtado. Agree with above findings and plan of care with exceptions mentioned below. Doing well, neck pain improved, breathing better, no chest pain, or palpitations , noted. -Left neck pain suspect Cervical radiculopathy +/- musculoskeletal component from coughing. -Acute hypoxic/hypercapneic respiratory insufficiency, likely acute COPD exacerbation from ?recent URI +/- acute systolic heart failure exacerbation -Cardiomyopathy, suspect ischemic from non compliance associated with cocaine/ alcohol use -Tobacco dependence -Cocaine abuse -Depression -LBBB, Old -Prolonged QTc -Leucocytosis, recurrent,suspect steroid induced demargination Agree with above plan taper steroids to PO, nebs prn. no oxygen needs identified. IV lasix for now, transition to PO in 1-2 days as improves. Discussed with Dr. Winter,optimize medical regimen, Cath in 2016, Will need outpatient cardiology close follow up. Neuropsychiatry input appreciated. Start gabapentin. taper toradol to off. PT for neck pain/spasm. Taper flexeril. Substance abuse cessation counseling provided. Trend CBC. DVTPPX Plan discussed in detail with patient and patient's sisters at bedside with patient's consent in detail, all questions answered. Dispo planning in 48 hours as improves.
--- NOTE | 2017-05-17 16:10 | PN ---
Progress Note, Physician Chief Complaint: Pt A&Ox3; + left arm/shoulder pain constantly x weeks, exacerbated by cough or moving left arm. History of Present Illness: Patient is a 52 white man with history of substance abuse (cocaine in present drug screen), severe systolic LV dysfunction; tobacco abuse, alcohol on weekends , prior hospitalization for pneumonia (~5 years ago) and questionable history of CHF (patient says that he was told something about his heart and 20%; coronary angiogram 05/2015 from [facility] notes nonobstructive CAD, with 20% obstructions in proximal LAD; 20% also in RCA and LCx) here today complaining of neck pain that radiates to his chest and left arm. The pain is worse with coughing, inspiration, palpitation and movement of his arm. Patient works as a regional tanker truck driver. Denies history of blood clots, leg swelling, nausea, vomiting, fevers and chills. He states that he looked unwell enough that his co-workers took him off the job and told him to go to the hospital. Did not receive a flu shot this year. - Current Medication List Current Medications: Active Medications Albuterol/Ipratropium (Duoneb -) 1 amp NEB Q4HPO [facility] Last Admin: 05/17/17 14:12 Dose: 1 amp Albuterol/Ipratropium (Duoneb -) 1 amp NEB Q6H PRN PRN Reason: SHORTNESS OF BREATH Aspirin (Ecotrin -) 81 mg PO DAILY [facility] Last Admin: 05/17/17 10:39 Dose: 81 mg Atorvastatin Calcium (Lipitor -) 40 mg PO HS [facility] Last Admin: 05/16/17 22:10 Dose: 40 mg Cyclobenzaprine HCl (Flexeril -) 5 mg PO TID [facility] Last Admin: 05/17/17 13:41 Dose: 5 mg Doxycycline Hyclate (Vibramycin -) 100 mg PO BID@1000,1800 [facility] Furosemide (Lasix Injection -) 40 mg IVPUSH DAILY [facility] Last Admin: 05/17/17 10:38 Dose: 40 mg Gabapentin (Neurontin -) 300 mg PO HS [facility] Guaifenesin (Robitussin -) 10 ml PO Q6H PRN PRN Reason: COUGH Last Admin: 05/17/17 10:38 Dose: 10 ml Heparin Sodium (Porcine) (Heparin -) 5,000 unit SQ TID [facility] Last Admin: 05/17/17 13:41 Dose: 5,000 unit Hydralazine HCl (Apresoline -) 10 mg PO BID [facility] Last Admin: 05/17/17 10:39 Dose: 10 mg Insulin Aspart (Novolog Vial Sliding Scale -) 1 vial SQ ACHS [facility] PRN Reason: Protocol Last Admin: 05/17/17 12:54 Dose: Not Given Isosorbide Dinitrate (Isordil -) 5 mg PO BIDISORDIL [facility] Last Admin: 05/17/17 10:41 Dose: 5 mg Ketorolac Tromethamine (Toradol Injection -) 15 mg IVPUSH Q6H PRN PRN Reason: PAIN LEVEL 4 - 6 Stop: 05/20/17 10:05 Last Admin: 05/17/17 03:00 Dose: 15 mg Lisinopril (Prinivil) 2.5 mg PO DAILY [facility] Last Admin: 05/17/17 10:39 Dose: 2.5 mg Methyl Salicylate (Jesus Manuel-Baron -) 1 applic TP BID [facility] Last Admin: 05/17/17 10:40 Dose: 1 applic Nicotine (Nicoderm Patch -) 14 mg TD DAILY [facility] Last Admin: 05/17/17 12:09 Dose: Not Given Nitroglycerin (Nitrostat -) 0.4 mg SL Q5M PRN PRN Reason: FOR CHEST PAIN Pantoprazole Sodium (Protonix -) 40 mg PO DAILY [facility] Last Admin: 05/17/17 10:38 Dose: 40 mg Prednisone (Deltasone -) 60 mg PO DAILY [facility] Spironolactone (Aldactone -) 12.5 mg PO DAILY [facility] Last Admin: 05/17/17 10:39 Dose: 12.5 mg - Objective Vital Signs: Vital Signs Temperature 98.9 F 05/17/17 14:00 Pulse Rate 74 05/17/17 14:00 Respiratory Rate 18 05/17/17 14:00 Blood Pressure 148/72 05/17/17 14:00 O2 Sat by Pulse Oximetry (%) 92 L 05/17/17 09:50 Constitutional: Yes: Anxious Eyes: Yes: WNL HENT: Yes: WNL Neck: Yes: WNL Cardiovascular: Yes: S1, S2, S4 Respiratory: Yes: Diminished, Wheezes Gastrointestinal: Yes: WNL ...Rectal Exam: Yes: Deferred Genitourinary: No: Anuria Breast(s): Yes: WNL Musculoskeletal: Yes: Joint Stiffness, Muscle Pain Extremities: Yes: WNL Edema: No Peripheral Pulses WNL: Yes Integumentary: Yes: WNL Neurological: Yes: Weakness Psychiatric: Yes: Other (addictive personality; anxiety/depression) Labs: CBC, BMP 05/17/17 07:10 05/17/17 07:10 INR, PTT INR 1.09 (0.82-1.09) 05/14/17 15:36 Abnormal Lab Results 05/17/17 05/17/17 07:10 07:10 WBC 18.0 H Anion Gap 7 L BUN 28 H D Random Glucose 132 H - ....Imaging Other: Image Reviewed (telemetry: NSR; no arrhythmias) Problem List - Problems (1) Acute on chronic systolic (congestive) heart failure Assessment/Plan: Severely reduced LVEF on ECHO now; moderate aortic root dilatation (not noted on CTA). ECHO from 05/2015: no significant differences. Coronary angiogram 05/2015: mild nonobstructive multivessel disease. LBBB on EKG (noted also in 05/2015). Cocaine in blood. Rec: Started lisinopril, spironolactone, hydralazine, and isordil dinitrate. Unable to use beta blockers while on cocaine (pt says he used it because of shoulder pain,has not used for a year, and has no plans to use it again!). F/u BUN/Cr, electrolytes (following K+ particularly important when on both ACEI and RAAS), daily weight. Is and Os. TSH low; f/u Free T4 and T3. As discussed with Dr. Montana, interventionalist, will forego coronary artery workup until medication regimen is optimized, compliance assured (pt says he has not taken medications or seen a doctor, since the angiogram 05/17, though he was told by his primary MD and the cardiac team of the need to take medications and return for f/u). Normal alcohol level. Recommend drug rehabilitation. 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 Code(s): I50.23 - ACUTE ON CHRONIC SYSTOLIC (CONGESTIVE) HEART FAILURE (2) Coronary artery disease Assessment/Plan: nonobstructive CAD on 2016 coronary angiogram. Statin. Code(s): I25.10 - ATHSCL HEART DISEASE OF [place] CORONARY ARTERY W/O ANG PCTRS (3) Substance abuse Code(s): F19.10 - OTHER PSYCHOACTIVE SUBSTANCE ABUSE, UNCOMPLICATED (4) Low TSH level Assessment/Plan: f/u Free T3 and T4 Code(s): R94.6 - ABNORMAL RESULTS OF THYROID FUNCTION STUDIES
[2017-05-17] MEDS ORDERED: LISINOPRIL 5 MG TABLET (FP) PO ONE (17:00)
[2017-05-17] MEDS ORDERED: INSULIN (NOVOLOG) ASPART 100 UNITS/ML 10ML VIAL ONE (17:20)
[2017-05-17] MEDS: DOXYCYCLINE HYCLATE 100 MG CAPSULE PO SCH (18:29)
[2017-05-17] MEDS: GABAPENTIN 300 MG CAPSULE (FP) PO SCH (22:29)
[2017-05-17] MEDS: ATORVASTATIN CA 40 MG TABLET (FP) PO SCH (22:30)
[2017-05-18] MEDS: ALBUTEROL SO4 2.5/IPRATROPIUM 0.5 INH SOL 3 ML VIAL.NEB. NEB SCH ×6 (02:00→22:20)
[2017-05-18] MEDS: KETOROLAC TROMETHAMINE 15 MG/ML VIAL IVPUSH PRN ×2 (03:16→15:40)
[2017-05-18] MEDS: CYCLOBENZAPRINE HCL 10 MG TABLET (FP) PO SCH ×3 (06:38→22:28)
[2017-05-18] MEDS: HEPARIN NA (PORCINE) 5,000 UNITS/ML 1ML VIAL SQ SCH ×3 (06:39→22:28)
[2017-05-18] MEDS: INSULIN SLIDING SCALE (NOVOLOG) 1 VIAL SQ SCH ×4 (06:40→22:43)
[2017-05-18 07:17] LABS: BASO % 0.2 % (0-2.0); HEMATOCRIT 46.5 % (35.4-49); HEMOGLOBIN 15.3 GM/dL (11.7-16.9); LYMPH % 14.5 % (8-40); MCH 31.2 pg (25.7-33.7); MCHC 32.8 g/dl (32.0-35.9); MEAN PLT VOLUME 9.5 fl (7.5-11.1); NEUT % 76.3 % (42.8-82.8); PLATELET COUNT 209 K/MM3 (134-434); RBC 4.89 M/mm3 (4.00-5.60); RDW 13.1 % (11.9-15.9); WHITE BLOOD COUNT 15.1 K/mm3 (4.0-10.0)
[2017-05-18 07:47] LABS: ALBUMIN 3.2 g/dl (3.4-5.0); ANION GAP 8 (8-16); BLOOD UREA NITROGEN 31 mg/dL (7-18); CALCIUM 8.9 mg/dL (8.5-10.1); CHLORIDE 104 mmol/L (98-107); CO2 28 mmol/L (21-32); GLUCOSE,RANDOM 125 mg/dL (74-106); POTASSIUM 4.3 mmol/L (3.5-5.1); SODIUM 140 mmol/L (136-145)
[2017-05-18 07:52] LABS: ALK PHOS 60 U/L (45-117); BILIRUBIN,TOTAL 0.4 mg/dL (0.2-1.0); CREATININE 1.1 mg/dL (0.7-1.3); SGOT/AST 20 U/L (15-37); SGPT/ALT 84 U/L (12-78); TOT PROT 6.3 g/dl (6.4-8.2)
[2017-05-18] MEDS ORDERED: PT OWN MED DRAWER 7, Y5N ONE ×2 (08:18→09:30)
--- NOTE | 2017-05-18 10:00 | PN ---
Teaching Attending Note Name of Resident: Kenisha Nowak Time of evaluation: 8:30 AM SUBJECTIVE: Patient seen and examined, neck symptoms and breathing improved. No chest pain, palpitations, dyspnea or dizziness. OBJECTIVE: Vital Signs Period Temp Pulse Resp BP Sys/Sanchez Pulse Ox Last 24 Hr 97.8 F-98.9 F 68-74 18-20 124-152/60-96 92 Intake & Output 05/15/17 05/16/17 05/17/17 05/18/17 23:59 23:59 23:59 23:59 Intake Total 200 280 400 Output Total 600 2400 Balance 200 -320 -2000 Weight 215 lb general: lying in bed, no acute distress Neck; improved ROM, improved spasm on palpation Chest: improved air entry, less wheezy today Abdomen: soft, NT, ND Extremities: no edema Home Medication List Medication Instructions Recorded Confirmed Type NK [No Known Home Medication] 05/14/17 05/14/17 History Active Medications Generic Name Dose Route Start Last Admin Trade Name Freq PRN Reason Stop Dose Admin Albuterol/Ipratropium 1 amp 05/15/17 02:00 05/18/17 09:44 Duoneb - NEB 1 amp Q4HPO [facility] Administration Albuterol/Ipratropium 1 amp 05/15/17 00:10 Duoneb - NEB Q6H PRN SHORTNESS OF BREATH Aspirin 81 mg 05/15/17 10:00 05/17/17 10:39 Ecotrin - PO 81 mg DAILY [facility] Administration Atorvastatin Calcium 40 mg 05/16/17 22:00 05/17/17 22:30 Lipitor - PO 40 mg HS [facility] Administration Cyclobenzaprine HCl 5 mg 05/17/17 07:21 05/18/17 06:38 Flexeril - PO 5 mg TID [facility] Administration Doxycycline Hyclate 100 mg 05/17/17 18:00 05/17/17 18:29 Vibramycin - PO 100 mg BID@1000,1800 [facility] Administration Furosemide 40 mg 05/15/17 10:00 05/17/17 10:38 Lasix Injection - IVPUSH 40 mg DAILY [facility] Administration Gabapentin 300 mg 05/17/17 22:00 05/17/17 22:29 Neurontin - PO 300 mg HS [facility] Administration Guaifenesin 10 ml 05/15/17 09:58 05/17/17 10:38 Robitussin - PO 10 ml Q6H PRN Administration COUGH Heparin Sodium (Porcine) 5,000 unit 05/15/17 06:00 05/18/17 06:39 Heparin - SQ 5,000 unit TID [facility] Administration Hydralazine HCl 10 mg 05/16/17 22:00 05/17/17 22:29 Apresoline - PO 10 mg BID [facility] Administration Insulin Aspart 1 vial 05/16/17 16:30 05/18/17 06:40 Novolog Vial Sliding Scale - SQ Not Given ACHS [facility] Protocol Isosorbide Dinitrate 5 mg 05/16/17 14:01 05/17/17 17:22 Isordil - PO 5 mg BIDISORDIL [facility] Administration Ketorolac Tromethamine 15 mg 05/15/17 10:06 05/18/17 03:16 Toradol Injection - IVPUSH 05/20/17 10:05 15 mg Q6H PRN Administration PAIN LEVEL 4 - 6 Lisinopril 5 mg 05/18/17 10:00 Prinivil PO DAILY [facility] Methyl Salicylate 1 applic 05/15/17 10:15 05/17/17 22:33 Jesus Manuel-Baron - TP 1 applic BID [facility] Administration Nicotine 14 mg 05/15/17 14:45 05/17/17 12:09 Nicoderm Patch - TD Not Given DAILY [facility] Nitroglycerin 0.4 mg 05/14/17 22:17 Nitrostat - SL Q5M PRN FOR CHEST PAIN Pantoprazole Sodium 40 mg 05/15/17 14:45 05/17/17 10:38 Protonix - PO 40 mg DAILY [facility] Administration Prednisone 60 mg 05/18/17 10:00 Deltasone - PO DAILY [facility] Spironolactone 12.5 mg 05/17/17 10:00 05/17/17 10:39 Aldactone - PO 12.5 mg DAILY [facility] Administration Laboratory Results - last 24 hr 05/17/17 05/17/17 05/17/17 12:22 17:18 22:35 WBC RBC Hgb Hct MCV MCH MCHC RDW Plt Count MPV Neutrophils % Lymphocytes % Monocytes % Eosinophils % Basophils % Sodium Potassium Chloride Carbon Dioxide Anion Gap BUN Creatinine Creat Clearance w eGFR POC Glucometer 168 225 215 Random Glucose Calcium Total Bilirubin AST ALT Alkaline Phosphatase Total Protein Albumin Free T4 05/18/17 05/18/17 05/18/17 05:35 06:56 06:56 WBC 15.1 H RBC 4.89 Hgb 15.3 Hct 46.5 MCV 95.0 MCH 31.2 MCHC 32.8 RDW 13.1 Plt Count 209 MPV 9.5 Neutrophils % 76.3 Lymphocytes % 14.5 D Monocytes % 9.0 D Eosinophils % 0.0 Basophils % 0.2 Sodium 140 Potassium 4.3 Chloride 104 Carbon Dioxide 28 Anion Gap 8 BUN 31 H Creatinine 1.1 Creat Clearance w eGFR > 60 POC Glucometer 159 Random Glucose 125 H Calcium 8.9 Total Bilirubin 0.4 D AST 20 ALT 84 H D Alkaline Phosphatase 60 Total Protein 6.3 L Albumin 3.2 L Free T4 0.80 Microbiology 05/14/17 18:10 Blood - Peripheral Venous Blood Culture - Preliminary NO GROWTH OBTAINED AFTER 72 HOURS, INCUBATION TO CONTINUE FOR 2 DAYS. 05/14/17 18:10 Blood - Peripheral Venous Blood Culture - Preliminary NO GROWTH OBTAINED AFTER 72 HOURS, INCUBATION TO CONTINUE FOR 2 DAYS. 05/15/17 12:14 Nasopharyngeal Swab Influenza Types A,B Antigen (MIKEY) - Final 05/15/17 12:14 Nasopharyngeal Swab - Final 05/15/17 06:20 Sputum - Expectorated Gram Stain - Final 05/15/17 06:20 Sputum - Expectorated Sputum Culture - Final NORMAL RESPIRATORY JAREK 05/14/17 22:30 Urine - Urine Clean Catch Urine Culture - Final NO GROWTH OBTAINED 05/14/17 22:30 Urine For Antigen Detection Legionella Antigen - Final 05/14/17 22:30 Urine For Antigen Detection Streptococcus pneumoniae Antigen (M - Final ASSESSMENT AND PLAN: 52 yom with PMhx of tobacco/cocaine abuse, CHF (?EF 20%), admitted with left neck pain,dyspnea, wheezing. -left neck pain likely from Cervical radiculopathy +/- musculoskeletal component from coughing -Acute hypoxic/hypercapneic respiratory insufficiency, likely acute COPD exacerbation from ?recent URI +/- acute systolic heart failure exacerbation -Cardiomyopathy, suspect ischemic from non compliance associated with cocaine/ alcohol use -Tobacco dependence -Cocaine abuse -Depression -LBBB, Old -Leucocytosis, recurrent, ?Steroid induced. Plan: Improved. Prednisone PO, nebs prn, smoking cessation counseling, outpatient pulmonary follow up for PFTs and additional testing Cardiology input appreciated. Change lasix to 20 mg PO daily from tomorrow, strict I/Os, Continue medical management with ASA/Statin/ACEi/spironolactone/Imdur. Not a candidate for beta vidal currently given active cocaine use. Cardiology input appreciate, outpatient follow up after medical optimization and ischemic w/u per them. neck pain improved, d/c toradol, change flexeril to prn. tylenol prn. PT eval. Neuropsychiatry input appreciated. Gabapentin working well. Outpatient follow up. Patient understands gravity of his medical condition and agrees to comply with and follow up for the same. Dispo planning in 24-48 hours if continues to improve. Plan discussed with patient in detail, all questions answered.
[2017-05-18] MEDS: PANTOPRAZOLE 40 MG TABLET (FP) PO SCH (10:01)
[2017-05-18] MEDS: FUROSEMIDE 40 MG/4 ML INJECTABLE VIAL IVPUSH SCH (10:01)
[2017-05-18] MEDS: LISINOPRIL 5 MG TABLET (FP) PO SCH (10:02)
[2017-05-18] MEDS: SPIRONOLACTONE 25 MG TABLET (FP) PO SCH (10:02)
[2017-05-18] MEDS: predniSONE 20 MG TABLET (UD) PO SCH (10:02)
[2017-05-18] MEDS: ASPIRIN COATED 81 MG TABLET.EC PO SCH (10:03)
[2017-05-18] MEDS: ISOSORBIDE DINITRATE 5 MG TABLET PO SCH ×2 (10:03→17:00)
[2017-05-18] MEDS: NICOTINE 14 MG/24 HOURS TOPICAL PATCH TD SCH (10:04)
[2017-05-18] MEDS: METHYL SALICYLATE/MENTHOL OINT 30 GM TUBE TP SCH ×2 (10:05→22:43)
[2017-05-18] MEDS: DOXYCYCLINE HYCLATE 100 MG CAPSULE PO SCH ×2 (10:05→17:00)
[2017-05-18] MEDS: hydrALAZINE HCL 10 MG TABLET PO SCH ×2 (10:06→22:28)
--- NOTE | 2017-05-18 12:14 | EKG ---
Test Reason : Blood Pressure : / mmHG Vent. Rate : 070 BPM Atrial Rate : 070 BPM P-R Int : 140 ms QRS Dur : 162 ms QT Int : 450 ms P-R-T Axes : 066 049 208 degrees QTc Int : 486 ms SINUS RHYTHM WITH PREMATURE ATRIAL COMPLEXES LEFT BUNDLE BRANCH BLOCK ABNORMAL ECG WHEN COMPARED WITH ECG OF 15-MAY-2017 09:08, PREMATURE ATRIAL COMPLEXES ARE NOW PRESENT Confirmed by MISHA FORD, NIECY ([id number]) on 05/18/2017 12:13:57 PM Referred By: Karina LÓPEZ Confirmed By:NIECY CABRAL MD
--- NOTE | 2017-05-18 12:38 | PN ---
Progress Note, Physician History of Present Illness: seen and examined today in nad. states he still has pleuritic pain, sob, but improving and improved with nebulizers. - Current Medication List Current Medications: Active Medications Albuterol/Ipratropium (Duoneb -) 1 amp NEB Q4HPO [facility] Last Admin: 05/18/17 09:44 Dose: 1 amp Albuterol/Ipratropium (Duoneb -) 1 amp NEB Q6H PRN PRN Reason: SHORTNESS OF BREATH Aspirin (Ecotrin -) 81 mg PO DAILY [facility] Last Admin: 05/18/17 10:03 Dose: 81 mg Atorvastatin Calcium (Lipitor -) 40 mg PO HS [facility] Last Admin: 05/17/17 22:30 Dose: 40 mg Cyclobenzaprine HCl (Flexeril -) 5 mg PO TID [facility] Last Admin: 05/18/17 06:38 Dose: 5 mg Doxycycline Hyclate (Vibramycin -) 100 mg PO BID@1000,1800 [facility] Last Admin: 05/18/17 10:05 Dose: 100 mg Furosemide (Lasix -) 20 mg PO DAILY [facility] Gabapentin (Neurontin -) 300 mg PO HS [facility] Last Admin: 05/17/17 22:29 Dose: 300 mg Guaifenesin (Robitussin -) 10 ml PO Q6H PRN PRN Reason: COUGH Last Admin: 05/17/17 10:38 Dose: 10 ml Heparin Sodium (Porcine) (Heparin -) 5,000 unit SQ TID [facility] Last Admin: 05/18/17 06:39 Dose: 5,000 unit Hydralazine HCl (Apresoline -) 10 mg PO BID [facility] Last Admin: 05/18/17 10:06 Dose: 10 mg Insulin Aspart (Novolog Vial Sliding Scale -) 1 vial SQ ACHS [facility] PRN Reason: Protocol Last Admin: 05/18/17 12:23 Dose: Not Given Isosorbide Dinitrate (Isordil -) 5 mg PO BIDISORDIL [facility] Last Admin: 05/18/17 10:03 Dose: 5 mg Ketorolac Tromethamine (Toradol Injection -) 15 mg IVPUSH Q6H PRN PRN Reason: PAIN LEVEL 4 - 6 Stop: 05/20/17 10:05 Last Admin: 05/18/17 03:16 Dose: 15 mg Lisinopril (Prinivil) 5 mg PO DAILY [facility] Last Admin: 05/18/17 10:02 Dose: 5 mg Methyl Salicylate (Jesus Manuel-Baron -) 1 applic TP BID [facility] Last Admin: 05/18/17 10:05 Dose: 1 applic Nicotine (Nicoderm Patch -) 14 mg TD DAILY [facility] Last Admin: 05/18/17 10:04 Dose: Not Given Nitroglycerin (Nitrostat -) 0.4 mg SL Q5M PRN PRN Reason: FOR CHEST PAIN Pantoprazole Sodium (Protonix -) 40 mg PO DAILY [facility] Last Admin: 05/18/17 10:01 Dose: 40 mg Prednisone (Deltasone -) 60 mg PO DAILY [facility] Last Admin: 05/18/17 10:02 Dose: 60 mg Spironolactone (Aldactone -) 12.5 mg PO DAILY [facility] Last Admin: 05/18/17 10:02 Dose: 12.5 mg - Objective Vital Signs: Vital Signs Temperature 98 F 05/18/17 09:08 Pulse Rate 72 05/18/17 09:08 Respiratory Rate 20 05/18/17 09:08 Blood Pressure 152/84 05/18/17 09:08 O2 Sat by Pulse Oximetry (%) 92 L 05/17/17 21:00 Constitutional: Yes: No Distress, Calm Eyes: Yes: Conjunctiva Clear, EOM Intact, PERRL HENT: Yes: Atraumatic, Normocephalic Neck: Yes: Supple, Trachea Midline Cardiovascular: Yes: Regular Rate and Rhythm, S1, S2. No: Bradycardia, Tachycardia, Pulse Irregular, Bruit, JVD, Gallop, Murmur, Rub, S3, S4, Varicosities Respiratory: Yes: Regular, Diminished, On Nasal O2, Rhonchi, Wheezes. No: Rales , SOB Gastrointestinal: Yes: Normal Bowel Sounds, Soft. No: Distention, Tenderness Extremities: Yes: WNL Edema: No Peripheral Pulses WNL: Yes Peripheral Pulses: Left Doralis Pedis: 2+, Right Dorsalis Pedis: 2+ Neurological: Yes: Alert, Oriented Psychiatric: Yes: Alert, Oriented Labs: CBC, BMP 05/18/17 06:56 05/18/17 06:56 INR, PTT INR 1.09 (0.82-1.09) 05/14/17 15:36 - ....Imaging Chest X-ray: Report Reviewed, Image Reviewed EKG: Report Reviewed, Image Reviewed Other: Report Reviewed, Image Reviewed (tele-nsr, frequent apcs, possibel PSVT) Assessment/Plan SOB-AE COPD -still wheezing -pt reports improvement -cont nebs -on Abx, steroids Acute on chronic systolic (congestive) heart failure, h/o non-obs CAD Severely reduced LVEF on ECHO now; moderate aortic root dilatation (not noted on CTA). ECHO from 05/2015: no significant differences. Coronary angiogram 05/2015: mild nonobstructive multivessel disease. LBBB on EKG (noted also in 05/2015). Cocaine + Rec: Cont medical management for now with lisinopril, spironolactone, hydralazine, and isordil dinitrate. Unable to use beta blockers while on cocaine F/u BUN/Cr, electrolytes, daily weight. Is and Os. TSH low; f/u Free T4 and T3. plan as per Dr. Winter is to forego coronary artery workup until medication regimen is optimized, compliance assured (pt says he has not taken medications or seen a doctor, since the angiogram 05/17, though he was told by his primary MD and the cardiac team of the need to take medications and return for f/u). -outpatient f/up
--- NOTE | 2017-05-18 13:46 | PN ---
Progress Note (short form) - Note Progress Note: Feels better. Some residual cough and RODRIGUEZ. No acute vents overnight. Intake & Output 05/15/17 05/16/17 05/17/17 05/18/17 23:59 23:59 23:59 23:59 Intake Total 200 280 400 120 Output Total 600 2400 240 Balance 200 -320 -2000 -120 Weight 215 lb Last Vital Signs Temp Pulse Resp BP Pulse Ox 98 F 72 20 152/84 92 L 05/18/17 09:08 05/18/17 09:08 05/18/17 09:08 05/18/17 09:08 05/17/17 21:00 Active Medications Albuterol/Ipratropium (Duoneb -) 1 amp NEB Q4HPO [facility] BEDS [facility] Last Admin: 05/18/17 09:00 Dose: 1 amp Albuterol/Ipratropium (Duoneb -) 1 amp NEB Q6H PRN PRN Reason: SHORTNESS OF BREATH Aspirin (Ecotrin -) 81 mg PO DAILY [facility]S [facility] Last Admin: 05/18/17 10:03 Dose: 81 mg Atorvastatin Calcium (Lipitor -) 40 mg PO HS [facility] 234 [facility]S [facility] Last Admin: 05/17/17 22:30 Dose: 40 mg Cyclobenzaprine HCl (Flexeril -) 5 mg PO TID [facility]S [facility] Last Admin: 05/18/17 06:38 Dose: 5 mg Doxycycline Hyclate (Vibramycin -) 100 mg PO BID@1000,1800 [facility] 234 [facility]S [facility] Last Admin: 05/18/17 10:05 Dose: 100 mg Furosemide (Lasix -) 20 mg PO DAILY [facility] 234 [facility]S [facility] Gabapentin (Neurontin -) 300 mg PO [facility] Last Admin: 05/17/17 22:29 Dose: 300 mg Guaifenesin (Robitussin -) 10 ml PO Q6H PRN PRN Reason: COUGH Last Admin: 05/17/17 10:38 Dose: 10 ml Heparin Sodium (Porcine) (Heparin -) 5,000 unit SQ TID [facility] 234 [facility]S [facility] Last Admin: 05/18/17 06:39 Dose: 5,000 unit Hydralazine HCl (Apresoline -) 10 mg PO BID [facility]S [facility] Last Admin: 05/18/17 10:06 Dose: 10 mg Insulin Aspart (Novolog Vial Sliding Scale -) 1 vial SQ ACHS [facility] 234 [facility]S [facility] PRN Reason: Protocol Last Admin: 02/17/18 12:23 Dose: Not Given Isosorbide Dinitrate (Isordil -) 5 mg PO BIDISORDIL [facility]S [facility] 234 [facility]EDS [facility] Last Admin: 05/18/17 10:03 Dose: 5 mg Ketorolac Tromethamine (Toradol Injection -) 15 mg IVPUSH Q6H PRN PRN Reason: PAIN LEVEL 4 - 6 Stop: 05/20/17 10:05 Last Admin: 05/18/17 03:16 Dose: 15 mg Lisinopril (Prinivil) 5 mg PO DAILY [facility] Last Admin: 05/18/17 10:02 Dose: 5 mg Methyl Salicylate (Jesus Manuel-Baron -) 1 applic TP BID [facility]S [facility] Last Admin: 05/18/17 10:05 Dose: 1 applic Nicotine (Nicoderm Patch -) 14 mg TD DAILY [facility] Last Admin: 05/18/17 10:04 Dose: Not Given Nitroglycerin (Nitrostat -) 0.4 mg SL Q5M PRN PRN Reason: FOR CHEST PAIN Pantoprazole Sodium (Protonix -) 40 mg PO DAILY [facility] Last Admin: 05/18/17 10:01 Dose: 40 mg Prednisone (Deltasone -) 60 mg PO DAILY [facility] Last Admin: 05/18/17 10:02 Dose: 60 mg Spironolactone (Aldactone -) 12.5 mg PO DAILY [facility] 234 [facility]S [facility] Last Admin: 05/18/17 10:02 Dose: 12.5 mg Constitutional: Yes: NAD Eyes: Yes: WNL, Conjunctiva Clear, EOM Intact HENT: Yes: WNL, Atraumatic, Normocephalic Cardiovascular: Yes: Regular Rate and Rhythm, S1, S2 Respiratory: Yes: Scattered rhonchi, no wheeze Gastrointestinal: Yes: WNL, Normal Bowel Sounds, Soft Edema: No Labs: Labs: Laboratory Results - last 24 hr 05/17/1718 05/18/17 17:18 22:35 05:35 WBC RBC Hgb Hct MCV MCH MCHC RDW Plt Count MPV Neutrophils % Lymphocytes % Monocytes % Eosinophils % Basophils % Sodium Potassium Chloride Carbon Dioxide Anion Gap BUN Creatinine Creat Clearance w eGFR POC Glucometer 225 215 159 Random Glucose Calcium Total Bilirubin AST ALT Alkaline Phosphatase Total Protein Albumin Free T4 05/18/17 05/18/17 05/18/17 06:56 06:56 11:14 WBC 15.1 H RBC 4.89 Hgb 15.3 Hct 46.5 MCV 95.0 MCH 31.2 MCHC 32.8 RDW 13.1 Plt Count 209 MPV 9.5 Neutrophils % 76.3 Lymphocytes % 14.5 D Monocytes % 9.0 D Eosinophils % 0.0 Basophils % 0.2 Sodium 140 Potassium 4.3 Chloride 104 Carbon Dioxide 28 Anion Gap 8 BUN 31 H Creatinine 1.1 Creat Clearance w eGFR > 60 POC Glucometer 136 Random Glucose 125 H Calcium 8.9 Total Bilirubin 0.4 D AST 20 ALT 84 H D Alkaline Phosphatase 60 Total Protein 6.3 L Albumin 3.2 L Free T4 0.80 Assessment/Plan 52 y.o. M with pmh of CHF (told by provider relations specialist he has EF of 20%), COPD, noncompliance, presented with 1 month hx of SOB with exertion and at rest #COPD #CHF #Chronic Tobacco Abuse #Cocaine abuse BD [place] Agree with Prednisone O2 as needed No smoking Outpatient PFTs No Pulmonary contraindication for D/C Sleep workup after D/C Dr Ring
[2017-05-18] MEDS: guaiFENesin 200 MG/10 ML 10 ML UNIT-DOSE CUPS PO PRN (15:41)
[2017-05-18] MEDS: ATORVASTATIN CA 40 MG TABLET (FP) PO SCH (22:28)
[2017-05-18] MEDS: GABAPENTIN 300 MG CAPSULE (FP) PO SCH (22:28)
[2017-05-19] MEDS: CYCLOBENZAPRINE HCL 10 MG TABLET (FP) PO SCH ×3 (06:16→22:19)
[2017-05-19] MEDS: HEPARIN NA (PORCINE) 5,000 UNITS/ML 1ML VIAL SQ SCH ×3 (06:16→22:20)
[2017-05-19] MEDS: INSULIN SLIDING SCALE (NOVOLOG) 1 VIAL SQ SCH ×4 (06:17→22:12)
[2017-05-19 07:31] LABS: BASO % 0.2 % (0-2.0); EOS % 0.3 % (0-4.5); HEMATOCRIT 49.2 % (35.4-49); HEMOGLOBIN 16.2 GM/dL (11.7-16.9); LYMPH % 21.5 % (8-40); MCHC 32.9 g/dl (32.0-35.9); MEAN CELL VOLUME 94.2 fl (80-96); MEAN PLT VOLUME 9.2 fl (7.5-11.1); MONO % 7.7 % (3.8-10.2); NEUT % 70.3 % (42.8-82.8); PLATELET COUNT 223 K/MM3 (134-434); RBC 5.23 M/mm3 (4.00-5.60); RDW 13.4 % (11.9-15.9); WHITE BLOOD COUNT 18.1 K/mm3 (4.0-10.0)
[2017-05-19] MEDS: ALBUTEROL SO4 2.5/IPRATROPIUM 0.5 INH SOL 3 ML VIAL.NEB. NEB SCH ×4 (08:00→22:10)
[2017-05-19 08:01] LABS: ALBUMIN 3.4 g/dl (3.4-5.0); ANION GAP 8 (8-16); BLOOD UREA NITROGEN 30 mg/dL (7-18); CHLORIDE 103 mmol/L (98-107); CO2 29 mmol/L (21-32); CREATININE 0.9 mg/dL (0.7-1.3); GLUCOSE,RANDOM 100 mg/dL (74-106); POTASSIUM 4.3 mmol/L (3.5-5.1); SGOT/AST 24 U/L (15-37); SGPT/ALT 109 U/L (12-78); SODIUM 140 mmol/L (136-145)
[2017-05-19 08:02] LABS: ALK PHOS 67 U/L (45-117); BILIRUBIN,TOTAL 0.3 mg/dL (0.2-1.0); TOT PROT 6.6 g/dl (6.4-8.2)
[2017-05-19] MEDS ORDERED: PT OWN MED DRAWER 7, Y5N ONE (08:26)
[2017-05-19] MEDS: PANTOPRAZOLE 40 MG TABLET (FP) PO SCH (09:08)
[2017-05-19] MEDS: ISOSORBIDE DINITRATE 5 MG TABLET PO SCH ×2 (09:08→17:22)
[2017-05-19] MEDS: SPIRONOLACTONE 25 MG TABLET (FP) PO SCH (09:08)
[2017-05-19] MEDS: ASPIRIN COATED 81 MG TABLET.EC PO SCH (09:08)
[2017-05-19] MEDS: LISINOPRIL 5 MG TABLET (FP) PO SCH (09:09)
[2017-05-19] MEDS: hydrALAZINE HCL 10 MG TABLET PO SCH ×2 (09:09→22:20)
[2017-05-19] MEDS: predniSONE 20 MG TABLET (UD) PO SCH (09:09)
[2017-05-19] MEDS: FUROSEMIDE 20 MG TABLET (FP) PO SCH (09:10)
[2017-05-19] MEDS: NICOTINE 14 MG/24 HOURS TOPICAL PATCH TD SCH (09:10)
[2017-05-19] MEDS: METHYL SALICYLATE/MENTHOL OINT 30 GM TUBE TP SCH ×2 (09:10→22:20)
[2017-05-19] MEDS: DOXYCYCLINE HYCLATE 100 MG CAPSULE PO SCH (09:11)
--- NOTE | 2017-05-19 12:56 | PN ---
Progress Note (short form) - Note Progress Note: Feels overall better. Some residual cough and RODRIGUEZ. No acute vents overnight. Intake & Output 05/16/17 05/17/17 05/18/17 05/19/17 23:59 23:59 23:59 23:59 Intake Total 280 400 820 240 Output Total 600 2400 1390 950 Balance -320 -2000 -570 -710 Last Vital Signs Temp Pulse Resp BP Pulse Ox 98 F 74 20 124/86 93 L 05/19/17 09:00 05/19/17 09:00 05/19/17 09:00 05/19/17 09:00 05/18/17 21:00 Active Medications Albuterol/Ipratropium (Duoneb -) 1 amp NEB Q4HPO [facility] Last Admin: 05/19/17 08:00 Dose: 1 amp Albuterol/Ipratropium (Duoneb -) 1 amp NEB Q6H PRN PRN Reason: SHORTNESS OF BREATH Aspirin (Ecotrin -) 81 mg PO DAILY [facility] Last Admin: 05/19/17 09:08 Dose: 81 mg Atorvastatin Calcium (Lipitor -) 40 mg PO HS [facility] Last Admin: 05/18/17 22:28 Dose: 40 mg Cyclobenzaprine HCl (Flexeril -) 5 mg PO TID [facility] Last Admin: 05/19/17 06:16 Dose: 5 mg Doxycycline Hyclate (Vibramycin -) 100 mg PO BID@1000,1800 [facility] Last Admin: 05/19/17 09:11 Dose: 100 mg Furosemide (Lasix -) 20 mg PO DAILY [facility] Last Admin: 05/19/17 09:10 Dose: 20 mg Gabapentin (Neurontin -) 300 mg PO HS [facility] Last Admin: 05/18/17 22:28 Dose: 300 mg Guaifenesin (Robitussin -) 10 ml PO Q6H PRN PRN Reason: COUGH Last Admin: 05/18/17 15:41 Dose: 10 ml Heparin Sodium (Porcine) (Heparin -) 5,000 unit SQ TID [facility] Last Admin: 05/19/17 06:16 Dose: 5,000 unit Hydralazine HCl (Apresoline -) 10 mg PO BID [facility] Last Admin: 05/19/17 09:09 Dose: 10 mg Insulin Aspart (Novolog Vial Sliding Scale -) 1 vial SQ ACHS [facility] PRN Reason: Protocol Last Admin: 05/19/17 12:10 Dose: Not Given Isosorbide Dinitrate (Isordil -) 5 mg PO BIDISORDIL [facility] Last Admin: 05/19/17 09:08 Dose: 5 mg Ketorolac Tromethamine (Toradol Injection -) 15 mg IVPUSH Q6H PRN PRN Reason: PAIN LEVEL 4 - 6 Stop: 05/20/17 10:05 Last Admin: 05/18/17 15:40 Dose: 15 mg Lisinopril (Prinivil) 5 mg PO DAILY [facility] Last Admin: 05/19/17 09:09 Dose: 5 mg Methyl Salicylate (Jesus Manuel-Baron -) 1 applic TP BID [facility] Last Admin: 05/19/17 09:10 Dose: 1 applic Nicotine (Nicoderm Patch -) 14 mg TD DAILY [facility] Last Admin: 05/19/17 09:10 Dose: Not Given Nitroglycerin (Nitrostat -) 0.4 mg SL Q5M PRN PRN Reason: FOR CHEST PAIN Pantoprazole Sodium (Protonix -) 40 mg PO DAILY [facility] Last Admin: 05/19/17 09:08 Dose: 40 mg Prednisone (Deltasone -) 60 mg PO DAILY [facility] Last Admin: 05/19/17 09:09 Dose: 60 mg Spironolactone (Aldactone -) 12.5 mg PO DAILY [facility] Last Admin: 05/19/17 09:08 Dose: 12.5 mg Constitutional: Yes: NAD Eyes: Yes: WNL, Conjunctiva Clear, EOM Intact HENT: Yes: WNL, Atraumatic, Normocephalic Cardiovascular: Yes: Regular Rate and Rhythm, S1, S2 Respiratory: Yes: Scattered rhonchi, no wheeze Gastrointestinal: Yes: WNL, Normal Bowel Sounds, Soft Edema: No Labs: Labs: Laboratory Results - last 24 hr 05/18/17 05/18/17 05/18/17 06:56 16:51 22:33 WBC RBC Hgb Hct MCV MCH MCHC RDW Plt Count MPV Neutrophils % Lymphocytes % Monocytes % Eosinophils % Basophils % Sodium Potassium Chloride Carbon Dioxide Anion Gap BUN Creatinine Creat Clearance w eGFR POC Glucometer 285 209 Random Glucose Calcium Total Bilirubin AST ALT Alkaline Phosphatase Total Protein Albumin Free T3 2.3 05/19/17 05/19/17 05/19/17 05:37 07:04 07:04 WBC 18.1 H RBC 5.23 Hgb 16.2 Hct 49.2 H MCV 94.2 MCH 31.0 MCHC 32.9 RDW 13.4 Plt Count 223 MPV 9.2 Neutrophils % 70.3 Lymphocytes % 21.5 D Monocytes % 7.7 Eosinophils % 0.3 D Basophils % 0.2 Sodium 140 Potassium 4.3 Chloride 103 Carbon Dioxide 29 Anion Gap 8 BUN 30 H Creatinine 0.9 Creat Clearance w eGFR > 60 POC Glucometer 108 Random Glucose 100 Calcium 9.0 Total Bilirubin 0.3 D AST 24 ALT 109 H D Alkaline Phosphatase 67 Total Protein 6.6 Albumin 3.4 Free T3 05/19/17 12:10 WBC RBC Hgb Hct MCV MCH MCHC RDW Plt Count MPV Neutrophils % Lymphocytes % Monocytes % Eosinophils % Basophils % Sodium Potassium Chloride Carbon Dioxide Anion Gap BUN Creatinine Creat Clearance w eGFR POC Glucometer 144 Random Glucose Calcium Total Bilirubin AST ALT Alkaline Phosphatase Total Protein Albumin Free T3 Assessment/Plan 52 y.o. M with pmh of CHF (told by hyperbaric tech he has EF of 20%), COPD, noncompliance, presented with 1 month hx of SOB with exertion and at rest #COPD #CHF #Chronic Tobacco Abuse #Cocaine abuse BD [place] Prednisone O2 as needed No smoking Outpatient PFTs / Sleep testing No Pulmonary contraindication for D/C Dr Ring
--- NOTE | 2017-05-19 13:38 | PN ---
Progress Note, Physician History of Present Illness: seen and examined today, comfortable, but then began coughing with congestion but difficulty producing sputum. no overnight events. no new complaints. - Current Medication List Current Medications: Active Medications Albuterol/Ipratropium (Duoneb -) 1 amp NEB Q4HPO [facility] Last Admin: 05/19/17 11:00 Dose: 1 amp Albuterol/Ipratropium (Duoneb -) 1 amp NEB Q6H PRN PRN Reason: SHORTNESS OF BREATH Aspirin (Ecotrin -) 81 mg PO DAILY [facility] Last Admin: 05/19/17 09:08 Dose: 81 mg Atorvastatin Calcium (Lipitor -) 40 mg PO HS [facility] Last Admin: 05/18/17 22:28 Dose: 40 mg Cyclobenzaprine HCl (Flexeril -) 5 mg PO TID [facility] Last Admin: 05/19/17 06:16 Dose: 5 mg Doxycycline Hyclate (Vibramycin -) 100 mg PO BID@1000,1800 [facility] Last Admin: 05/19/17 09:11 Dose: 100 mg Furosemide (Lasix -) 20 mg PO DAILY [facility] Last Admin: 05/19/17 09:10 Dose: 20 mg Gabapentin (Neurontin -) 300 mg PO HS [facility] Last Admin: 05/18/17 22:28 Dose: 300 mg Guaifenesin (Robitussin -) 10 ml PO Q6H PRN PRN Reason: COUGH Last Admin: 05/18/17 15:41 Dose: 10 ml Heparin Sodium (Porcine) (Heparin -) 5,000 unit SQ TID [facility] Last Admin: 05/19/17 06:16 Dose: 5,000 unit Hydralazine HCl (Apresoline -) 10 mg PO BID [facility] Last Admin: 05/19/17 09:09 Dose: 10 mg Insulin Aspart (Novolog Vial Sliding Scale -) 1 vial SQ ACHS [facility] PRN Reason: Protocol Last Admin: 05/19/17 12:10 Dose: Not Given Isosorbide Dinitrate (Isordil -) 5 mg PO BIDISORDIL [facility] Last Admin: 05/19/17 09:08 Dose: 5 mg Ketorolac Tromethamine (Toradol Injection -) 15 mg IVPUSH Q6H PRN PRN Reason: PAIN LEVEL 4 - 6 Stop: 05/20/17 10:05 Last Admin: 05/18/17 15:40 Dose: 15 mg Lisinopril (Prinivil) 5 mg PO DAILY [facility] Last Admin: 05/19/17 09:09 Dose: 5 mg Methyl Salicylate (Jesus Manuel-Baron -) 1 applic TP BID [facility] Last Admin: 05/19/17 09:10 Dose: 1 applic Nicotine (Nicoderm Patch -) 14 mg TD DAILY [facility] Last Admin: 05/19/17 09:10 Dose: Not Given Nitroglycerin (Nitrostat -) 0.4 mg SL Q5M PRN PRN Reason: FOR CHEST PAIN Pantoprazole Sodium (Protonix -) 40 mg PO DAILY [facility] Last Admin: 05/19/17 09:08 Dose: 40 mg Prednisone (Deltasone -) 60 mg PO DAILY [facility] Last Admin: 05/19/17 09:09 Dose: 60 mg Spironolactone (Aldactone -) 12.5 mg PO DAILY [facility] Last Admin: 05/19/17 09:08 Dose: 12.5 mg - Objective Vital Signs: Vital Signs Temperature 98 F 05/19/17 09:00 Pulse Rate 74 05/19/17 09:00 Respiratory Rate 20 05/19/17 09:00 Blood Pressure 124/86 05/19/17 09:00 O2 Sat by Pulse Oximetry (%) 93 L 05/19/17 09:00 Constitutional: Yes: No Distress, Calm Eyes: Yes: Conjunctiva Clear, EOM Intact, PERRL HENT: Yes: Atraumatic, Normocephalic Neck: Yes: Supple, Trachea Midline Cardiovascular: Yes: Regular Rate and Rhythm, S1, S2. No: Bradycardia, Tachycardia, Pulse Irregular, Bruit, JVD, Gallop, Murmur, Rub, S3, S4, Varicosities Respiratory: Yes: Regular, Cough, Rhonchi, Wheezes. No: Rales, SOB Gastrointestinal: Yes: Normal Bowel Sounds, Soft. No: Distention, Tenderness Edema: No Peripheral Pulses WNL: Yes Peripheral Pulses: Left Doralis Pedis: 2+, Right Dorsalis Pedis: 2+ Neurological: Yes: Alert, Oriented Psychiatric: Yes: Alert, Oriented Labs: CBC, BMP 05/19/17 07:04 05/19/17 07:04 INR, PTT INR 1.09 (0.82-1.09) 05/14/17 15:36 - ....Imaging Chest X-ray: Report Reviewed, Image Reviewed EKG: Report Reviewed, Image Reviewed Other: Report Reviewed, Image Reviewed (tele-NSR, no arrhythmias recorded) Assessment/Plan SOB-AE COPD -still wheezing and coughing -receiving nebs -on Abx, steroids Acute on chronic systolic (congestive) heart failure, h/o non-obs CAD Severely reduced LVEF on ECHO now; moderate aortic root dilatation (not noted on CTA). ECHO from 05/2015: no significant differences. Coronary angiogram 05/2015: mild nonobstructive multivessel disease. LBBB on EKG (noted also in 05/2015). Cocaine + Rec: Cont medical management for now with lisinopril, spironolactone, hydralazine, and isordil dinitrate. Unable to use beta blockers while on cocaine plan as per Dr. Winter is to forego coronary artery workup until medication regimen is optimized, compliance assured (pt says he has not taken medications or seen a doctor, since the angiogram 05/17, though he was told by his primary MD and the cardiac team of the need to take medications and return for f/u). -outpatient f/up -can dc tele at this point, no arrhythmias have been noted
--- NOTE | 2017-05-19 16:01 | PN ---
Teaching Attending Note Name of Resident: Kenisha Noawk SUBJECTIVE: Patient seen and examined. breathing, neck pain improved, no new complaints. OBJECTIVE: Vital Signs Period Temp Pulse Resp BP Sys/Sanchez Pulse Ox Last 24 Hr 97.3 F-98.3 F 60-75 20-20 124-147/62-97 93-93 Intake & Output 05/16/17 05/17/17 05/18/17 05/19/17 23:59 23:59 23:59 23:59 Intake Total 280 400 820 480 Output Total 600 2400 1390 1450 Balance -320 -2000 -570 -970 general: sitting in bed no acute distress neck: improved ROM Chest: good air entry bilaterally, no wheezing abdomen:soft, NT Extremities: no edema Laboratory Results - last 24 hr 05/18/17 05/18/17 05/18/17 06:56 16:51 22:33 WBC RBC Hgb Hct MCV MCH MCHC RDW Plt Count MPV Neutrophils % Lymphocytes % Monocytes % Eosinophils % Basophils % Sodium Potassium Chloride Carbon Dioxide Anion Gap BUN Creatinine Creat Clearance w eGFR POC Glucometer 285 209 Random Glucose Calcium Total Bilirubin AST ALT Alkaline Phosphatase Total Protein Albumin Free T3 2.3 05/19/17 05/19/17 05/19/17 05:37 07:04 07:04 WBC 18.1 H RBC 5.23 Hgb 16.2 Hct 49.2 H MCV 94.2 MCH 31.0 MCHC 32.9 RDW 13.4 Plt Count 223 MPV 9.2 Neutrophils % 70.3 Lymphocytes % 21.5 D Monocytes % 7.7 Eosinophils % 0.3 D Basophils % 0.2 Sodium 140 Potassium 4.3 Chloride 103 Carbon Dioxide 29 Anion Gap 8 BUN 30 H Creatinine 0.9 Creat Clearance w eGFR > 60 POC Glucometer 108 Random Glucose 100 Calcium 9.0 Total Bilirubin 0.3 D AST 24 ALT 109 H D Alkaline Phosphatase 67 Total Protein 6.6 Albumin 3.4 Free T3 05/19/17 12:10 WBC RBC Hgb Hct MCV MCH MCHC RDW Plt Count MPV Neutrophils % Lymphocytes % Monocytes % Eosinophils % Basophils % Sodium Potassium Chloride Carbon Dioxide Anion Gap BUN Creatinine Creat Clearance w eGFR POC Glucometer 144 Random Glucose Calcium Total Bilirubin AST ALT Alkaline Phosphatase Total Protein Albumin Free T3 Home Medication List Medication Instructions Recorded Confirmed Type NK [No Known Home Medication] 05/14/17 05/14/17 History Active Medications Generic Name Dose Route Start Last Admin Trade Name Frelam PRN Reason Stop Dose Admin Albuterol/Ipratropium 1 amp 05/15/17 02:00 05/19/17 11:00 Duoneb - NEB 1 amp Q4HPO [facility] Administration Albuterol/Ipratropium 1 amp 05/15/17 00:10 Duoneb - NEB Q6H PRN SHORTNESS OF BREATH Aspirin 81 mg 05/15/17 10:00 05/19/17 09:08 Ecotrin - PO 81 mg DAILY [facility] Administration Atorvastatin Calcium 40 mg 05/16/17 22:00 05/18/17 22:28 Lipitor - PO 40 mg HS [facility] Administration Cyclobenzaprine HCl 5 mg 05/17/17 07:21 05/19/17 13:54 Flexeril - PO 5 mg TID [facility] Administration Furosemide 20 mg 05/19/17 10:00 05/19/17 09:10 Lasix - PO 20 mg DAILY [facility] Administration Gabapentin 300 mg 05/17/17 22:00 05/18/17 22:28 Neurontin - PO 300 mg HS [facility] Administration Guaifenesin 10 ml 05/15/17 09:58 05/18/17 15:41 Robitussin - PO 10 ml Q6H PRN Administration COUGH Heparin Sodium (Porcine) 5,000 unit 05/15/17 06:00 05/19/17 13:54 Heparin - SQ 5,000 unit TID [facility] Administration Hydralazine HCl 10 mg 05/16/17 22:00 05/19/17 09:09 Apresoline - PO 10 mg BID [facility] Administration Insulin Aspart 1 vial 05/16/17 16:30 05/19/17 12:10 Novolog Vial Sliding Scale - SQ Not Given ACHS [facility] Protocol Isosorbide Dinitrate 5 mg 05/16/17 14:01 05/19/17 09:08 Isordil - PO 5 mg BIDISORDIL [facility] Administration Ketorolac Tromethamine 15 mg 05/15/17 10:06 05/18/17 15:40 Toradol Injection - IVPUSH 05/20/17 10:05 15 mg Q6H PRN Administration PAIN LEVEL 4 - 6 Lisinopril 5 mg 05/18/17 10:00 05/19/17 09:09 Prinivil PO 5 mg DAILY [facility] Administration Methyl Salicylate 1 applic 05/15/17 10:15 05/19/17 09:10 Jesus Manuel-Baron - TP 1 applic BID [facility] Administration Nicotine 14 mg 05/15/17 14:45 05/19/17 09:10 Nicoderm Patch - TD Not Given DAILY [facility] Nitroglycerin 0.4 mg 05/14/17 22:17 Nitrostat - SL Q5M PRN FOR CHEST PAIN Pantoprazole Sodium 40 mg 05/15/17 14:45 05/19/17 09:08 Protonix - PO 40 mg DAILY [facility] Administration Prednisone 50 mg 05/19/17 15:56 Deltasone - PO DAILY [facility] Spironolactone 12.5 mg 05/17/17 10:00 05/19/17 09:08 Aldactone - PO 12.5 mg DAILY [facility] Administration Microbiology 05/14/17 18:10 Blood - Peripheral Venous Blood Culture - Preliminary NO GROWTH OBTAINED AFTER 96 HOURS, INCUBATION TO CONTINUE FOR 1 DAYS. 05/14/17 18:10 Blood - Peripheral Venous Blood Culture - Preliminary NO GROWTH OBTAINED AFTER 96 HOURS, INCUBATION TO CONTINUE FOR 1 DAYS. 05/15/17 12:14 Nasopharyngeal Swab Influenza Types A,B Antigen (MIKEY) - Final 05/15/17 12:14 Nasopharyngeal Swab - Final 05/15/17 06:20 Sputum - Expectorated Gram Stain - Final 05/15/17 06:20 Sputum - Expectorated Sputum Culture - Final NORMAL RESPIRATORY JAREK 05/14/17 22:30 Urine - Urine Clean Catch Urine Culture - Final NO GROWTH OBTAINED 05/14/17 22:30 Urine For Antigen Detection Legionella Antigen - Final 05/14/17 22:30 Urine For Antigen Detection Streptococcus pneumoniae Antigen (M - Final ASSESSMENT AND PLAN: 52 yom with PMhx of tobacco/cocaine abuse, CHF (?EF 20%), admitted with left neck pain,dyspnea, wheezing. -left neck pain likely from Cervical radiculopathy +/- musculoskeletal component from coughing -Acute hypoxic/hypercapneic respiratory insufficiency, likely acute COPD exacerbation from ?recent URI +/- acute systolic heart failure exacerbation -Cardiomyopathy, suspect ischemic from non compliance associated with cocaine/ alcohol use -Tobacco dependence -Cocaine abuse -Depression -LBBB, Old -Leucocytosis, recurrent, ?Steroid induced. Plan: Improved. taper prednisone to 50 mg, nebs prn, smoking cessation counseling, outpatient pulmonary follow up for PFTs and additional testing Cardiology input appreciated. Lasix to 20 mg PO daily, strict I/Os, change to prn based on weight on d/c Continue medical management with ASA/Statin/ACEi/spironolactone/Imdur. Not a candidate for beta vidal currently given active cocaine use. Cardiology input appreciated, outpatient follow up after medical optimization and ischemic w/u per them. Rising WBC, ?Etiology, no new s/s concerning for infection, trend for now. neck pain improved, d/c toradol, change flexeril to prn. tylenol prn. PT kenneth noted. Neuropsychiatry input appreciated. Gabapentin working well. Outpatient follow up. Patient understands gravity of his medical condition and agrees to comply with and follow up for the same. Dispo planning in 24 hours if WBC improved and no new events. Plan discussed with patient in detail, all questions answered.
[2017-05-19] MEDS: GABAPENTIN 300 MG CAPSULE (FP) PO SCH (22:19)
[2017-05-19] MEDS: ATORVASTATIN CA 40 MG TABLET (FP) PO SCH (22:20)
[2017-05-20] MEDS: INSULIN SLIDING SCALE (NOVOLOG) 1 VIAL SQ SCH ×2 (06:04→11:22)
[2017-05-20] MEDS: CYCLOBENZAPRINE HCL 10 MG TABLET (FP) PO SCH (06:08)
[2017-05-20] MEDS: HEPARIN NA (PORCINE) 5,000 UNITS/ML 1ML VIAL SQ SCH (06:10)
[2017-05-20 07:07] LABS: BASO % 0.2 % (0-2.0); EOS % 0.3 % (0-4.5); HEMATOCRIT 50.1 % (35.4-49); HEMOGLOBIN 16.5 GM/dL (11.7-16.9); LYMPH % 18.4 % (8-40); MCH 31.4 pg (25.7-33.7); MCHC 32.9 g/dl (32.0-35.9); MEAN CELL VOLUME 95.4 fl (80-96); MEAN PLT VOLUME 9.9 fl (7.5-11.1); MONO % 6.6 % (3.8-10.2); NEUT % 74.5 % (42.8-82.8); PLATELET COUNT 256 K/MM3 (134-434); RBC 5.25 M/mm3 (4.00-5.60); RDW 13.3 % (11.9-15.9); WHITE BLOOD COUNT 20.1 K/mm3 (4.0-10.0)
[2017-05-20 07:30] LABS: ANION GAP 5 (8-16); BLOOD UREA NITROGEN 31 mg/dL (7-18); CALCIUM 8.2 mg/dL (8.5-10.1); CHLORIDE 101 mmol/L (98-107); CO2 30 mmol/L (21-32); GLUCOSE,RANDOM 145 mg/dL (74-106); MAGNESIUM 2.4 mg/dL (1.8-2.4); PHOSPHOROUS 4.1 mg/dL (2.5-4.9); POTASSIUM 4.3 mmol/L (3.5-5.1); SODIUM 136 mmol/L (136-145)
[2017-05-20 09:52] VITALS: BP 138/88; PULSE 74; TEMP 98.2
[2017-05-20] MEDS: SPIRONOLACTONE 25 MG TABLET (FP) PO SCH (09:59)
[2017-05-20] MEDS ORDERED: predniSONE 20 MG TABLET (UD) PO SCH (10:00)
[2017-05-20] MEDS: LISINOPRIL 5 MG TABLET (FP) PO SCH (10:00)
[2017-05-20] MEDS: ISOSORBIDE DINITRATE 5 MG TABLET PO SCH (10:00)
[2017-05-20] MEDS: hydrALAZINE HCL 10 MG TABLET PO SCH (10:00)
[2017-05-20] MEDS: FUROSEMIDE 20 MG TABLET (FP) PO SCH (10:00)
[2017-05-20] MEDS: NICOTINE 14 MG/24 HOURS TOPICAL PATCH TD SCH (10:00)
[2017-05-20] MEDS: ASPIRIN COATED 81 MG TABLET.EC PO SCH (10:00)
[2017-05-20] MEDS: PANTOPRAZOLE 40 MG TABLET (FP) PO SCH (10:00)
[2017-05-20] MEDS: METHYL SALICYLATE/MENTHOL OINT 30 GM TUBE TP SCH (10:01)
--- NOTE | 2017-05-20 12:06 | PN ---
Teaching Attending Note Name of Resident: Eddy Tam ATTENDING PHYSICIAN STATEMENT Time of evaluation : 8:15 AM I saw and evaluated the patient. I reviewed the resident's note and discussed the case with the resident. I agree with the resident's findings and plan as documented. SUBJECTIVE: Patient seen and examined. neck pain.breathing improved, no new complaints. OBJECTIVE: Vital Signs Period Temp Pulse Resp BP Sys/Sanchez Pulse Ox Last 24 Hr 97.6 F-99.3 F 66-76 14-20 98-138/56-88 92 Intake & Output 05/17/17 05/18/17 05/19/17 05/20/17 23:59 23:59 23:59 23:59 Intake Total 400 820 980 Output Total 2400 1390 1450 Balance -2000 -570 -470 Genera; ambulating in room in no acute distress CVS;S1S2 regular Chest: good air entry, no rales or wheezing abdomen: soft, NT, ND, positive bowel sounds extremities: no edema Active Medications Generic Name Dose Route Start Last Admin Trade Name Freq PRN Reason Stop Dose Admin Aspirin 81 mg 05/15/17 10:00 05/20/17 10:00 Ecotrin - PO 81 mg DAILY [facility] Administration Atorvastatin Calcium 40 mg 05/16/17 22:00 05/19/17 22:20 Lipitor - PO 40 mg HS [facility] Administration Cyclobenzaprine HCl 5 mg 05/17/17 07:21 05/20/17 06:08 Flexeril - PO 5 mg TID [facility] Administration Furosemide 20 mg 05/19/17 10:00 05/20/17 10:00 Lasix - PO 20 mg DAILY [facility] Administration Gabapentin 300 mg 05/17/17 22:00 05/19/17 22:19 Neurontin - PO 300 mg HS [facility] Administration Guaifenesin 10 ml 05/15/17 09:58 05/18/17 15:41 Robitussin - PO 10 ml Q6H PRN Administration COUGH Heparin Sodium (Porcine) 5,000 unit 05/15/17 06:00 05/20/17 06:10 Heparin - SQ 5,000 unit TID [facility] Administration Hydralazine HCl 10 mg 05/16/17 22:00 05/20/17 10:00 Apresoline - PO 10 mg BID [facility] Administration Insulin Aspart 1 vial 05/16/17 16:30 02/19/18 11:22 Novolog Vial Sliding Scale - SQ Not Given ACHS [facility] Protocol Isosorbide Dinitrate 5 mg 05/16/17 14:01 05/20/17 10:00 Isordil - PO 5 mg BIDISORDIL [facility] Administration Lisinopril 5 mg 05/18/17 10:00 05/20/17 10:00 Prinivil PO 5 mg DAILY [facility] Administration Methyl Salicylate 1 applic 05/15/17 10:15 05/20/17 10:01 Jesus Manuel-Baron - TP 1 applic BID [facility] Administration Nicotine 14 mg 05/15/17 14:45 05/20/17 10:00 Nicoderm Patch - TD 14 mg DAILY [facility] Administration Nitroglycerin 0.4 mg 05/14/17 22:17 Nitrostat - SL Q5M PRN FOR CHEST PAIN Pantoprazole Sodium 40 mg 05/15/17 14:45 05/20/17 10:00 Protonix - PO 40 mg DAILY [facility] Administration Prednisone 50 mg 05/20/17 10:00 05/20/17 09:59 Deltasone - PO 50 mg DAILY [facility] Administration Spironolactone 12.5 mg 05/17/17 10:00 05/20/17 09:59 Aldactone - PO 12.5 mg DAILY [facility] Administration Laboratory Results - last 24 hr 05/19/17 05/19/17 05/19/17 12:10 16:59 21:14 WBC RBC Hgb Hct MCV MCH MCHC RDW Plt Count MPV Neutrophils % Lymphocytes % Monocytes % Eosinophils % Basophils % Sodium Potassium Chloride Carbon Dioxide Anion Gap BUN Creatinine POC Glucometer 144 208 160 Random Glucose Calcium Phosphorus Magnesium 05/20/17 05/20/17 05/20/17 05:38 06:35 06:35 WBC 20.1 H RBC 5.25 Hgb 16.5 Hct 50.1 H MCV 95.4 MCH 31.4 MCHC 32.9 RDW 13.3 Plt Count 256 MPV 9.9 Neutrophils % 74.5 Lymphocytes % 18.4 Monocytes % 6.6 Eosinophils % 0.3 Basophils % 0.2 Sodium 136 Potassium 4.3 Chloride 101 Carbon Dioxide 30 Anion Gap 5 L BUN 31 H Creatinine 1.0 POC Glucometer 150 Random Glucose 145 H D Calcium 8.2 L Phosphorus 4.1 Magnesium 2.4 05/20/17 11:20 WBC RBC Hgb Hct MCV MCH MCHC RDW Plt Count MPV Neutrophils % Lymphocytes % Monocytes % Eosinophils % Basophils % Sodium Potassium Chloride Carbon Dioxide Anion Gap BUN Creatinine POC Glucometer 111 Random Glucose Calcium Phosphorus Magnesium Microbiology 05/14/17 18:10 Blood - Peripheral Venous Blood Culture - Final NO GROWTH AFTER 5 DAYS INCUBATION 05/14/17 18:10 Blood - Peripheral Venous Blood Culture - Final NO GROWTH AFTER 5 DAYS INCUBATION 05/15/17 12:14 Nasopharyngeal Swab Influenza Types A,B Antigen (MIKEY) - Final 05/15/17 12:14 Nasopharyngeal Swab - Final 05/15/17 06:20 Sputum - Expectorated Gram Stain - Final 05/15/17 06:20 Sputum - Expectorated Sputum Culture - Final NORMAL RESPIRATORY JAREK 05/14/17 22:30 Urine - Urine Clean Catch Urine Culture - Final NO GROWTH OBTAINED 05/14/17 22:30 Urine For Antigen Detection Legionella Antigen - Final 05/14/17 22:30 Urine For Antigen Detection Streptococcus pneumoniae Antigen (M - Final ASSESSMENT AND PLAN: 52 yom with PMhx of tobacco/cocaine abuse, CHF (?EF 20%), admitted with left neck pain,dyspnea, wheezing. -left neck pain likely from Cervical radiculopathy +/- musculoskeletal component from coughing -Acute hypoxic/hypercapneic respiratory insufficiency, likely acute COPD exacerbation from ?recent URI +/- acute systolic heart failure exacerbation -Cardiomyopathy, suspect ischemic from non compliance associated with cocaine/ alcohol use -Tobacco dependence -Cocaine abuse -Depression -LBBB, Old -Leucocytosis, recurrent, ?Steroid induced. Plan: Markedly improved. oxygenating well, ambulating, neck pain improved. Gabapentin prn and outpatient PT. Outpatient neurology follow up. Discussed with Dr. Winter, currently patient euvolumic, lasix 20 mg prn for weight gain or edema, but hold off on standing regimen for now. Optimized medical regimen with nitrates/hydralazine/Acei/statin/aldactone. Outpatient cardiology follow up. Prednisone taper, smoking cessation counseling. strongly advised to avoid cocaine, ETOH and smoking use WBC noted, patient with no fevers, chills or focal s/s concerning for infection. Has been ambulating comfortably in hallway and markedly improved. WBC count overall stable on steroids, highly suspicious for steroid induced margination, but outpatient CBC in 1 week with PCP. DIscussed with patient in detail, about need for close follow up, compliance with medications and high risk for progressive cardiorespiratory worsening and sudden cardiac in the absence of the same. Patient relays full understanding of the risks and agrees to comply with the same. Smoking/ETOH/Cocaine cessation counseling was stressed. Dc home today with close outpatient follow up.
--- NOTE | 2017-05-20 15:33 | PN ---
Progress Note, Physician History of Present Illness: seen and examined today and no acute distress. being discharged home today - Objective Vital Signs: Vital Signs Temperature 98.2 F 05/20/17 09:00 Pulse Rate 74 05/20/17 09:00 Respiratory Rate 14 05/20/17 09:00 Blood Pressure 138/88 05/20/17 09:00 O2 Sat by Pulse Oximetry (%) 94 L 05/20/17 09:00 Constitutional: Yes: No Distress, Calm Eyes: Yes: Conjunctiva Clear, EOM Intact HENT: Yes: Atraumatic, Normocephalic Neck: Yes: Supple, Trachea Midline Cardiovascular: Yes: Regular Rate and Rhythm, S1, S2. No: Bradycardia, Tachycardia, Pulse Irregular, Bruit, JVD, Gallop, Murmur, Rub, S3, S4, Varicosities Respiratory: Yes: Regular, Rhonchi, Wheezes. No: Rales, SOB Gastrointestinal: Yes: Normal Bowel Sounds, Soft. No: Distention, Tenderness Extremities: Yes: WNL Edema: No Peripheral Pulses WNL: Yes Peripheral Pulses: Left Doralis Pedis: 2+, Right Dorsalis Pedis: 2+ Integumentary: Yes: WNL Neurological: Yes: Alert, Oriented Psychiatric: Yes: Alert, Oriented Labs: CBC, BMP 05/20/17 06:35 05/20/17 06:35 INR, PTT INR 1.09 (0.82-1.09) 05/14/17 15:36 - ....Imaging Chest X-ray: Report Reviewed, Image Reviewed EKG: Report Reviewed, Image Reviewed Other: Report Reviewed, Image Reviewed (telemetry normal sinus rhythm and sinus tach no significant arrhythmias) Assessment/Plan SOB-AE COPD -still wheezing and coughing -receiving nebs -on Abx, steroids Acute on chronic systolic (congestive) heart failure, h/o non-obs CAD Severely reduced LVEF on ECHO now; moderate aortic root dilatation (not noted on CTA). ECHO from 05/2015: no significant differences. Coronary angiogram 05/2015: mild nonobstructive multivessel disease. LBBB on EKG (noted also in 05/2015). Cocaine + Rec: Cont medical management for now with lisinopril, spironolactone, hydralazine, and isordil dinitrate. Unable to use beta blockers while on cocaine plan as per Dr. Winter is to forego coronary artery workup until medication regimen is optimized, compliance assured (pt says he has not taken medications or seen a doctor, since the angiogram 05/17, though he was told by his primary MD and the cardiac team of the need to take medications and return for f/u). -okay from a cardiac standpoint for discharge home with very close outpatient f/ up -can dc tele at this point, no arrhythmias have been noted
--- NOTE | 2017-05-20 23:28 | EKG ---
Test Reason : Blood Pressure : / mmHG Vent. Rate : 071 BPM Atrial Rate : 071 BPM P-R Int : 148 ms QRS Dur : 152 ms QT Int : 440 ms P-R-T Axes : 050 041 242 degrees QTc Int : 478 ms NORMAL SINUS RHYTHM POSSIBLE LEFT ATRIAL ENLARGEMENT LEFT BUNDLE BRANCH BLOCK ABNORMAL ECG WHEN COMPARED WITH ECG OF 15-MAY-2017 06:25, T WAVE VARIATION Confirmed by MAME ADAM MD ([id number]) on 05/20/2017 11:28:16 PM Referred By: Confirmed By:MAME ADAM MD
--- NOTE | 2017-05-22 17:13 | DS ---
Physical Exam: SUBJECTIVE: Patient seen and examined Patient seen and examined. neck pain.breathing improved, no new complaints. OBJECTIVE: PHYSICAL EXAM Vital Signs Temperature 98.2 F 05/20/17 09:00 Pulse Rate 74 05/20/17 09:00 Respiratory Rate 14 05/20/17 09:00 Blood Pressure 138/88 05/20/17 09:00 O2 Sat by Pulse Oximetry (%) 94 L 05/20/17 09:00 General; ambulating in room in no acute distress CVS: S1S2, regular Chest: good air entry, no rales or wheezing abdomen: soft, NT, ND, positive bowel sounds extremities: no edema LABS Laboratory Tests 05/14/17 05/14/17 05/14/17 15:36 15:36 15:36 WBC 12.6 H RBC 5.20 Hgb 16.3 Hct 48.8 MCV 93.8 MCH 31.4 MCHC 33.5 RDW 13.0 Plt Count 246 MPV 10.3 Neutrophils % 61.3 Lymphocytes % 28.4 Monocytes % 9.2 Eosinophils % 0.7 Basophils % 0.4 PT with INR 12.30 H INR 1.09 Puncture Site ABG pH ABG pCO2 at Pt Temp ABG pO2 at Pt Temp ABG HCO3 ABG O2 Sat (Measured) ABG O2 Content ABG Base Excess Pedro Luis Test Carboxyhemoglobin Methemoglobin O2 Delivery Device Oxygen Flow Rate Sodium 138 Potassium 4.0 Chloride 103 Carbon Dioxide 24 Anion Gap 11 BUN 16 Creatinine 0.9 Creat Clearance w eGFR > 60 POC Glucometer Random Glucose 79 Hemoglobin A1c % Calcium 8.0 L Phosphorus Magnesium 2.2 Total Bilirubin 0.8 AST 16 ALT 33 Alkaline Phosphatase 72 Creatine Kinase 140 Troponin I 0.03 B-Natriuretic Peptide Total Protein 6.7 Albumin 4.0 Triglycerides Cholesterol Total LDL Cholesterol HDL Cholesterol TSH Free T4 Free T3 Urine Color Urine Appearance Urine pH Ur Specific [place] Urine Protein Urine Glucose (UA) Urine Ketones Urine Blood Urine Nitrite Urine Bilirubin Urine Urobilinogen Ur Leukocyte Esterase Urine WBC (Auto) Urine RBC (Auto) Ur Epithelial Cells Opiates Screen Methadone Screen Barbiturate Screen Phencyclidine Screen Ur Amphetamines Screen MDMA (Ecstasy) Screen Benzodiazepines Screen Cocaine Screen U Marijuana (THC) Screen Alcohol, Quantitative 05/14/17 05/14/17 05/14/17 16:22 22:30 22:30 WBC RBC Hgb Hct MCV MCH MCHC RDW Plt Count MPV Neutrophils % Lymphocytes % Monocytes % Eosinophils % Basophils % PT with INR INR Puncture Site ABG pH ABG pCO2 at Pt Temp ABG pO2 at Pt Temp ABG HCO3 ABG O2 Sat (Measured) ABG O2 Content ABG Base Excess Pedro Luis Test Carboxyhemoglobin Methemoglobin O2 Delivery Device Oxygen Flow Rate Sodium Potassium Chloride Carbon Dioxide Anion Gap BUN Creatinine Creat Clearance w eGFR POC Glucometer Random Glucose Hemoglobin A1c % Calcium Phosphorus Magnesium Total Bilirubin AST ALT Alkaline Phosphatase Creatine Kinase Troponin I B-Natriuretic Peptide 2017.35 H Total Protein Albumin Triglycerides Cholesterol Total LDL Cholesterol HDL Cholesterol TSH Free T4 Free T3 Urine Color Yellow Urine Appearance Clear Urine pH 5.0 Ur Specific [place] 1.010 Urine Protein Negative Urine Glucose (UA) Negative Urine Ketones Negative Urine Blood Negative Urine Nitrite Negative Urine Bilirubin Negative Urine Urobilinogen Normal Ur Leukocyte Esterase Trace Urine WBC (Auto) None seen Urine RBC (Auto) 2 Ur Epithelial Cells Rare Opiates Screen Positive Methadone Screen Negative Barbiturate Screen Negative Phencyclidine Screen Negative Ur Amphetamines Screen Negative MDMA (Ecstasy) Screen Negative Benzodiazepines Screen Negative Cocaine Screen Positive U Marijuana (THC) Screen Negative Alcohol, Quantitative 05/14/17 05/14/17 05/14/17 22:31 22:35 22:43 WBC RBC Hgb Hct MCV MCH MCHC RDW Plt Count MPV Neutrophils % Lymphocytes % Monocytes % Eosinophils % Basophils % PT with INR INR Puncture Site Right radial ABG pH 7.36 ABG pCO2 at Pt Temp 48.1 H ABG pO2 at Pt Temp 64.3 L ABG HCO3 26.7 H ABG O2 Sat (Measured) 91.8 ABG O2 Content 20.2 ABG Base Excess 1.1 Pedro Luis Test Positive Carboxyhemoglobin 2.0 Methemoglobin 0.9 O2 Delivery Device Room air Oxygen Flow Rate 21 Sodium Potassium Chloride Carbon Dioxide Anion Gap BUN Creatinine Creat Clearance w eGFR POC Glucometer Random Glucose Hemoglobin A1c % Calcium Phosphorus Magnesium Total Bilirubin AST ALT Alkaline Phosphatase Creatine Kinase 133 Troponin I 0.02 D B-Natriuretic Peptide Total Protein Albumin Triglycerides Cholesterol Total LDL Cholesterol HDL Cholesterol TSH Free T4 Free T3 Urine Color Urine Appearance Urine pH Ur Specific [place] Urine Protein Urine Glucose (UA) Urine Ketones Urine Blood Urine Nitrite Urine Bilirubin Urine Urobilinogen Ur Leukocyte Esterase Urine WBC (Auto) Urine RBC (Auto) Ur Epithelial Cells Opiates Screen Methadone Screen Barbiturate Screen Phencyclidine Screen Ur Amphetamines Screen MDMA (Ecstasy) Screen Benzodiazepines Screen Cocaine Screen U Marijuana (THC) Screen Alcohol, Quantitative 05/15/17 05/15/17 05/15/17 06:57 06:57 06:57 WBC 8.0 D RBC 5.09 Hgb 15.7 Hct 47.6 MCV 93.5 MCH 30.8 MCHC 32.9 RDW 12.8 Plt Count 249 MPV 9.4 Neutrophils % 83.2 H D Lymphocytes % 13.6 D Monocytes % 3.0 L Eosinophils % 0.0 D Basophils % 0.2 PT with INR INR Puncture Site ABG pH ABG pCO2 at Pt Temp ABG pO2 at Pt Temp ABG HCO3 ABG O2 Sat (Measured) ABG O2 Content ABG Base Excess Pedro Luis Test Carboxyhemoglobin Methemoglobin O2 Delivery Device Oxygen Flow Rate Sodium 137 Potassium 4.7 Chloride 102 Carbon Dioxide 25 Anion Gap 10 BUN 20 H D Creatinine 1.1 D Creat Clearance w eGFR > 60 POC Glucometer Random Glucose 147 H D Hemoglobin A1c % 6.5 H Calcium 9.0 Phosphorus 3.9 Magnesium 2.6 H Total Bilirubin 0.6 D AST 20 D ALT 36 Alkaline Phosphatase 72 Creatine Kinase Troponin I B-Natriuretic Peptide Total Protein 7.3 Albumin 3.9 Triglycerides Cholesterol Total LDL Cholesterol HDL Cholesterol TSH Free T4 Free T3 Urine Color Urine Appearance Urine pH Ur Specific [place] Urine Protein Urine Glucose (UA) Urine Ketones Urine Blood Urine Nitrite Urine Bilirubin Urine Urobilinogen Ur Leukocyte Esterase Urine WBC (Auto) Urine RBC (Auto) Ur Epithelial Cells Opiates Screen Methadone Screen Barbiturate Screen Phencyclidine Screen Ur Amphetamines Screen MDMA (Ecstasy) Screen Benzodiazepines Screen Cocaine Screen U Marijuana (THC) Screen Alcohol, Quantitative 05/15/17 05/16/17 05/16/17 06:57 06:15 06:15 WBC 19.0 H D RBC 4.70 Hgb 14.8 Hct 44.5 MCV 94.6 MCH 31.5 MCHC 33.3 RDW 12.9 Plt Count 205 MPV 9.8 Neutrophils % 89.4 H Lymphocytes % 6.3 L D Monocytes % 4.2 Eosinophils % 0.0 Basophils % 0.1 PT with INR INR Puncture Site ABG pH ABG pCO2 at Pt Temp ABG pO2 at Pt Temp ABG HCO3 ABG O2 Sat (Measured) ABG O2 Content ABG Base Excess Pedro Luis Test Carboxyhemoglobin Methemoglobin O2 Delivery Device Oxygen Flow Rate Sodium 141 Potassium 4.7 Chloride 107 Carbon Dioxide 27 Anion Gap 7 L BUN 21 H Creatinine 0.9 Creat Clearance w eGFR POC Glucometer Random Glucose 146 H Hemoglobin A1c % Calcium 8.8 Phosphorus 3.6 Magnesium 2.2 Total Bilirubin AST ALT Alkaline Phosphatase Creatine Kinase Troponin I B-Natriuretic Peptide Total Protein Albumin Triglycerides 58 Cholesterol 157 Total LDL Cholesterol 100 HDL Cholesterol 42 TSH Free T4 Free T3 Urine Color Urine Appearance Urine pH Ur Specific [place] Urine Protein Urine Glucose (UA) Urine Ketones Urine Blood Urine Nitrite Urine Bilirubin Urine Urobilinogen Ur Leukocyte Esterase Urine WBC (Auto) Urine RBC (Auto) Ur Epithelial Cells Opiates Screen Methadone Screen Barbiturate Screen Phencyclidine Screen Ur Amphetamines Screen MDMA (Ecstasy) Screen Benzodiazepines Screen Cocaine Screen U Marijuana (THC) Screen Alcohol, Quantitative 05/16/17 05/16/17 05/16/17 17:32 18:00 18:00 WBC RBC Hgb Hct MCV MCH MCHC RDW Plt Count MPV Neutrophils % Lymphocytes % Monocytes % Eosinophils % Basophils % PT with INR INR Puncture Site ABG pH ABG pCO2 at Pt Temp ABG pO2 at Pt Temp ABG HCO3 ABG O2 Sat (Measured) ABG O2 Content ABG Base Excess Pedro Luis Test Carboxyhemoglobin Methemoglobin O2 Delivery Device Oxygen Flow Rate Sodium Potassium Chloride Carbon Dioxide Anion Gap BUN Creatinine Creat Clearance w eGFR POC Glucometer 137 Random Glucose Hemoglobin A1c % Calcium Phosphorus Magnesium Total Bilirubin AST ALT Alkaline Phosphatase Creatine Kinase Troponin I B-Natriuretic Peptide Total Protein Albumin Triglycerides Cholesterol Total LDL Cholesterol HDL Cholesterol TSH 0.25 L Free T4 Free T3 Urine Color Urine Appearance Urine pH Ur Specific [place] Urine Protein Urine Glucose (UA) Urine Ketones Urine Blood Urine Nitrite Urine Bilirubin Urine Urobilinogen Ur Leukocyte Esterase Urine WBC (Auto) Urine RBC (Auto) Ur Epithelial Cells Opiates Screen Methadone Screen Barbiturate Screen Phencyclidine Screen Ur Amphetamines Screen MDMA (Ecstasy) Screen Benzodiazepines Screen Cocaine Screen U Marijuana (THC) Screen Alcohol, Quantitative < 5.0 05/16/17 05/16/17 05/17/17 18:00 22:27 05:09 WBC RBC Hgb Hct MCV MCH MCHC RDW Plt Count MPV Neutrophils % Lymphocytes % Monocytes % Eosinophils % Basophils % PT with INR INR Puncture Site ABG pH ABG pCO2 at Pt Temp ABG pO2 at Pt Temp ABG HCO3 ABG O2 Sat (Measured) ABG O2 Content ABG Base Excess Pedro Luis Test Carboxyhemoglobin Methemoglobin O2 Delivery Device Oxygen Flow Rate Sodium Potassium Chloride Carbon Dioxide Anion Gap BUN Creatinine Creat Clearance w eGFR POC Glucometer 163 146 Random Glucose Hemoglobin A1c % Calcium Phosphorus Magnesium Total Bilirubin AST ALT Alkaline Phosphatase Creatine Kinase Troponin I B-Natriuretic Peptide Total Protein Albumin Triglycerides Cholesterol Total LDL Cholesterol HDL Cholesterol TSH Free T4 Free T3 Urine Color Yellow Urine Appearance Clear Urine pH 6.0 Ur Specific [place] 1.026 Urine Protein Negative Urine Glucose (UA) Negative Urine Ketones Negative Urine Blood Negative Urine Nitrite Negative Urine Bilirubin Negative Urine Urobilinogen Negative Ur Leukocyte Esterase Negative Urine WBC (Auto) Urine RBC (Auto) Ur Epithelial Cells Opiates Screen Methadone Screen Barbiturate Screen Phencyclidine Screen Ur Amphetamines Screen MDMA (Ecstasy) Screen Benzodiazepines Screen Cocaine Screen U Marijuana (THC) Screen Alcohol, Quantitative 05/17/17 05/17/17 05/17/17 07:10 07:10 12:22 WBC 18.0 H RBC 4.87 Hgb 15.2 Hct 46.3 MCV 95.2 MCH 31.2 MCHC 32.8 RDW 13.1 Plt Count 238 MPV 9.8 Neutrophils % Lymphocytes % Monocytes % Eosinophils % Basophils % PT with INR INR Puncture Site ABG pH ABG pCO2 at Pt Temp ABG pO2 at Pt Temp ABG HCO3 ABG O2 Sat (Measured) ABG O2 Content ABG Base Excess Pedro Luis Test Carboxyhemoglobin Methemoglobin O2 Delivery Device Oxygen Flow Rate Sodium 140 Potassium 4.7 Chloride 105 Carbon Dioxide 28 Anion Gap 7 L BUN 28 H D Creatinine 1.0 Creat Clearance w eGFR POC Glucometer 168 Random Glucose 132 H Hemoglobin A1c % Calcium 8.9 Phosphorus Magnesium Total Bilirubin AST ALT Alkaline Phosphatase Creatine Kinase Troponin I B-Natriuretic Peptide Total Protein Albumin Triglycerides Cholesterol Total LDL Cholesterol HDL Cholesterol TSH Free T4 Free T3 Urine Color Urine Appearance Urine pH Ur Specific [place] Urine Protein Urine Glucose (UA) Urine Ketones Urine Blood Urine Nitrite Urine Bilirubin Urine Urobilinogen Ur Leukocyte Esterase Urine WBC (Auto) Urine RBC (Auto) Ur Epithelial Cells Opiates Screen Methadone Screen Barbiturate Screen Phencyclidine Screen Ur Amphetamines Screen MDMA (Ecstasy) Screen Benzodiazepines Screen Cocaine Screen U Marijuana (THC) Screen Alcohol, Quantitative 02/16/18 02/16/18 02/17/18 17:18 22:35 05:35 WBC RBC Hgb Hct MCV MCH MCHC RDW Plt Count MPV Neutrophils % Lymphocytes % Monocytes % Eosinophils % Basophils % PT with INR INR Puncture Site ABG pH ABG pCO2 at Pt Temp ABG pO2 at Pt Temp ABG HCO3 ABG O2 Sat (Measured) ABG O2 Content ABG Base Excess Pedro Luis Test Carboxyhemoglobin Methemoglobin O2 Delivery Device Oxygen Flow Rate Sodium Potassium Chloride Carbon Dioxide Anion Gap BUN Creatinine Creat Clearance w eGFR POC Glucometer 225 215 159 Random Glucose Hemoglobin A1c % Calcium Phosphorus Magnesium Total Bilirubin AST ALT Alkaline Phosphatase Creatine Kinase Troponin I B-Natriuretic Peptide Total Protein Albumin Triglycerides Cholesterol Total LDL Cholesterol HDL Cholesterol TSH Free T4 Free T3 Urine Color Urine Appearance Urine pH Ur Specific [place] Urine Protein Urine Glucose (UA) Urine Ketones Urine Blood Urine Nitrite Urine Bilirubin Urine Urobilinogen Ur Leukocyte Esterase Urine WBC (Auto) Urine RBC (Auto) Ur Epithelial Cells Opiates Screen Methadone Screen Barbiturate Screen Phencyclidine Screen Ur Amphetamines Screen MDMA (Ecstasy) Screen Benzodiazepines Screen Cocaine Screen U Marijuana (THC) Screen Alcohol, Quantitative 05/18/1718 05/18/17 06:56 06:56 06:56 WBC 15.1 H RBC 4.89 Hgb 15.3 Hct 46.5 MCV 95.0 MCH 31.2 MCHC 32.8 RDW 13.1 Plt Count 209 MPV 9.5 Neutrophils % 76.3 Lymphocytes % 14.5 D Monocytes % 9.0 D Eosinophils % 0.0 Basophils % 0.2 PT with INR INR Puncture Site ABG pH ABG pCO2 at Pt Temp ABG pO2 at Pt Temp ABG HCO3 ABG O2 Sat (Measured) ABG O2 Content ABG Base Excess Pedro Luis Test Carboxyhemoglobin Methemoglobin O2 Delivery Device Oxygen Flow Rate Sodium 140 Potassium 4.3 Chloride 104 Carbon Dioxide 28 Anion Gap 8 BUN 31 H Creatinine 1.1 Creat Clearance w eGFR > 60 POC Glucometer Random Glucose 125 H Hemoglobin A1c % Calcium 8.9 Phosphorus Magnesium Total Bilirubin 0.4 D AST 20 ALT 84 H D Alkaline Phosphatase 60 Creatine Kinase Troponin I B-Natriuretic Peptide Total Protein 6.3 L Albumin 3.2 L Triglycerides Cholesterol Total LDL Cholesterol HDL Cholesterol TSH Free T4 0.80 Free T3 2.3 Urine Color Urine Appearance Urine pH Ur Specific [place] Urine Protein Urine Glucose (UA) Urine Ketones Urine Blood Urine Nitrite Urine Bilirubin Urine Urobilinogen Ur Leukocyte Esterase Urine WBC (Auto) Urine RBC (Auto) Ur Epithelial Cells Opiates Screen Methadone Screen Barbiturate Screen Phencyclidine Screen Ur Amphetamines Screen MDMA (Ecstasy) Screen Benzodiazepines Screen Cocaine Screen U Marijuana (THC) Screen Alcohol, Quantitative 05/18/17 05/18/17 05/18/17 11:14 16:51 22:33 WBC RBC Hgb Hct MCV MCH MCHC RDW Plt Count MPV Neutrophils % Lymphocytes % Monocytes % Eosinophils % Basophils % PT with INR INR Puncture Site ABG pH ABG pCO2 at Pt Temp ABG pO2 at Pt Temp ABG HCO3 ABG O2 Sat (Measured) ABG O2 Content ABG Base Excess Pedro Luis Test Carboxyhemoglobin Methemoglobin O2 Delivery Device Oxygen Flow Rate Sodium Potassium Chloride Carbon Dioxide Anion Gap BUN Creatinine Creat Clearance w eGFR POC Glucometer 136 285 209 Random Glucose Hemoglobin A1c % Calcium Phosphorus Magnesium Total Bilirubin AST ALT Alkaline Phosphatase Creatine Kinase Troponin I B-Natriuretic Peptide Total Protein Albumin Triglycerides Cholesterol Total LDL Cholesterol HDL Cholesterol TSH Free T4 Free T3 Urine Color Urine Appearance Urine pH Ur Specific [place] Urine Protein Urine Glucose (UA) Urine Ketones Urine Blood Urine Nitrite Urine Bilirubin Urine Urobilinogen Ur Leukocyte Esterase Urine WBC (Auto) Urine RBC (Auto) Ur Epithelial Cells Opiates Screen Methadone Screen Barbiturate Screen Phencyclidine Screen Ur Amphetamines Screen MDMA (Ecstasy) Screen Benzodiazepines Screen Cocaine Screen U Marijuana (THC) Screen Alcohol, Quantitative 05/19/17 05/19/17 05/19/17 05:37 07:04 07:04 WBC 18.1 H RBC 5.23 Hgb 16.2 Hct 49.2 H MCV 94.2 MCH 31.0 MCHC 32.9 RDW 13.4 Plt Count 223 MPV 9.2 Neutrophils % 70.3 Lymphocytes % 21.5 D Monocytes % 7.7 Eosinophils % 0.3 D Basophils % 0.2 PT with INR INR Puncture Site ABG pH ABG pCO2 at Pt Temp ABG pO2 at Pt Temp ABG HCO3 ABG O2 Sat (Measured) ABG O2 Content ABG Base Excess Pedro Luis Test Carboxyhemoglobin Methemoglobin O2 Delivery Device Oxygen Flow Rate Sodium 140 Potassium 4.3 Chloride 103 Carbon Dioxide 29 Anion Gap 8 BUN 30 H Creatinine 0.9 Creat Clearance w eGFR > 60 POC Glucometer 108 Random Glucose 100 Hemoglobin A1c % Calcium 9.0 Phosphorus Magnesium Total Bilirubin 0.3 D AST 24 ALT 109 H D Alkaline Phosphatase 67 Creatine Kinase Troponin I B-Natriuretic Peptide Total Protein 6.6 Albumin 3.4 Triglycerides Cholesterol Total LDL Cholesterol HDL Cholesterol TSH Free T4 Free T3 Urine Color Urine Appearance Urine pH Ur Specific [place] Urine Protein Urine Glucose (UA) Urine Ketones Urine Blood Urine Nitrite Urine Bilirubin Urine Urobilinogen Ur Leukocyte Esterase Urine WBC (Auto) Urine RBC (Auto) Ur Epithelial Cells Opiates Screen Methadone Screen Barbiturate Screen Phencyclidine Screen Ur Amphetamines Screen MDMA (Ecstasy) Screen Benzodiazepines Screen Cocaine Screen U Marijuana (THC) Screen Alcohol, Quantitative 05/19/17 05/19/17 05/19/17 12:10 16:59 21:14 WBC RBC Hgb Hct MCV MCH MCHC RDW Plt Count MPV Neutrophils % Lymphocytes % Monocytes % Eosinophils % Basophils % PT with INR INR Puncture Site ABG pH ABG pCO2 at Pt Temp ABG pO2 at Pt Temp ABG HCO3 ABG O2 Sat (Measured) ABG O2 Content ABG Base Excess Pedro Luis Test Carboxyhemoglobin Methemoglobin O2 Delivery Device Oxygen Flow Rate Sodium Potassium Chloride Carbon Dioxide Anion Gap BUN Creatinine Creat Clearance w eGFR POC Glucometer 144 208 160 Random Glucose Hemoglobin A1c % Calcium Phosphorus Magnesium Total Bilirubin AST ALT Alkaline Phosphatase Creatine Kinase Troponin I B-Natriuretic Peptide Total Protein Albumin Triglycerides Cholesterol Total LDL Cholesterol HDL Cholesterol TSH Free T4 Free T3 Urine Color Urine Appearance Urine pH Ur Specific [place] Urine Protein Urine Glucose (UA) Urine Ketones Urine Blood Urine Nitrite Urine Bilirubin Urine Urobilinogen Ur Leukocyte Esterase Urine WBC (Auto) Urine RBC (Auto) Ur Epithelial Cells Opiates Screen Methadone Screen Barbiturate Screen Phencyclidine Screen Ur Amphetamines Screen MDMA (Ecstasy) Screen Benzodiazepines Screen Cocaine Screen U Marijuana (THC) Screen Alcohol, Quantitative 05/20/17 05/20/17 05/20/17 05:38 06:35 06:35 WBC 20.1 H RBC 5.25 Hgb 16.5 Hct 50.1 H MCV 95.4 MCH 31.4 MCHC 32.9 RDW 13.3 Plt Count 256 MPV 9.9 Neutrophils % 74.5 Lymphocytes % 18.4 Monocytes % 6.6 Eosinophils % 0.3 Basophils % 0.2 PT with INR INR Puncture Site ABG pH ABG pCO2 at Pt Temp ABG pO2 at Pt Temp ABG HCO3 ABG O2 Sat (Measured) ABG O2 Content ABG Base Excess Pedro Luis Test Carboxyhemoglobin Methemoglobin O2 Delivery Device Oxygen Flow Rate Sodium 136 Potassium 4.3 Chloride 101 Carbon Dioxide 30 Anion Gap 5 L BUN 31 H Creatinine 1.0 Creat Clearance w eGFR POC Glucometer 150 Random Glucose 145 H D Hemoglobin A1c % Calcium 8.2 L Phosphorus 4.1 Magnesium 2.4 Total Bilirubin AST ALT Alkaline Phosphatase Creatine Kinase Troponin I B-Natriuretic Peptide Total Protein Albumin Triglycerides Cholesterol Total LDL Cholesterol HDL Cholesterol TSH Free T4 Free T3 Urine Color Urine Appearance Urine pH Ur Specific [place] Urine Protein Urine Glucose (UA) Urine Ketones Urine Blood Urine Nitrite Urine Bilirubin Urine Urobilinogen Ur Leukocyte Esterase Urine WBC (Auto) Urine RBC (Auto) Ur Epithelial Cells Opiates Screen Methadone Screen Barbiturate Screen Phencyclidine Screen Ur Amphetamines Screen MDMA (Ecstasy) Screen Benzodiazepines Screen Cocaine Screen U Marijuana (THC) Screen Alcohol, Quantitative 05/20/17 11:20 WBC RBC Hgb Hct MCV MCH MCHC RDW Plt Count MPV Neutrophils % Lymphocytes % Monocytes % Eosinophils % Basophils % PT with INR INR Puncture Site ABG pH ABG pCO2 at Pt Temp ABG pO2 at Pt Temp ABG HCO3 ABG O2 Sat (Measured) ABG O2 Content ABG Base Excess Pedro Luis Test Carboxyhemoglobin Methemoglobin O2 Delivery Device Oxygen Flow Rate Sodium Potassium Chloride Carbon Dioxide Anion Gap BUN Creatinine Creat Clearance w eGFR POC Glucometer 111 Random Glucose Hemoglobin A1c % Calcium Phosphorus Magnesium Total Bilirubin AST ALT Alkaline Phosphatase Creatine Kinase Troponin I B-Natriuretic Peptide Total Protein Albumin Triglycerides Cholesterol Total LDL Cholesterol HDL Cholesterol TSH Free T4 Free T3 Urine Color Urine Appearance Urine pH Ur Specific [place] Urine Protein Urine Glucose (UA) Urine Ketones Urine Blood Urine Nitrite Urine Bilirubin Urine Urobilinogen Ur Leukocyte Esterase Urine WBC (Auto) Urine RBC (Auto) Ur Epithelial Cells Opiates Screen Methadone Screen Barbiturate Screen Phencyclidine Screen Ur Amphetamines Screen MDMA (Ecstasy) Screen Benzodiazepines Screen Cocaine Screen U Marijuana (THC) Screen Alcohol, Quantitative Microbiology 05/14/17 18:10 Blood - Peripheral Venous Blood Culture - Final NO GROWTH AFTER 5 DAYS INCUBATION 05/14/17 18:10 Blood - Peripheral Venous Blood Culture - Final NO GROWTH AFTER 5 DAYS INCUBATION 05/15/17 12:14 Nasopharyngeal Swab Influenza Types A,B Antigen (MIKEY) - Final 05/15/17 12:14 Nasopharyngeal Swab - Final 05/15/17 06:20 Sputum - Expectorated Gram Stain - Final 05/15/17 06:20 Sputum - Expectorated Sputum Culture - Final NORMAL RESPIRATORY JAREK 05/14/17 22:30 Urine - Urine Clean Catch Urine Culture - Final NO GROWTH OBTAINED 05/14/17 22:30 Urine For Antigen Detection Legionella Antigen - Final 05/14/17 22:30 Urine For Antigen Detection Streptococcus pneumoniae Antigen (M - Final CTA Chest: no PE CT neck: carotid artery calcifications, C3-C4 and C5-C6 central canal stenosis which is moderate to marked Doppler Carotid: no hemodynamically signficant stenosis HOSPITAL COURSE: Date of Admission:05/14/17 Date of Discharge: 05/22/17 52M w/ PMhx of tobacco/cocaine abuse, CHF (?EF 20%), admitted with left neck pain, dyspnea, and wheezing. His left neck pain was determined to be likely from cervical radiculopathy +/- musculoskeletal component from coughing, was treated with pain contorl. His acute hypoxic/hypercapneic respiratory insufficiency was likely 2/2 an acute COPD exacerbation from recent URI +/- acute systolic heart failure exacerbation, and it was treated with supplemental O2, duonebs, steroids. Pt was seen by cardiology for his cardiomyopathy, and was given an optimized medical regimen of nitrates/hydralazine/Acei/statin/ aldactone. Pt was educated about tobacco and cocaine cessation. On day of discharge, pt has normal vitals, improving labs, and is stable for discharge home. Pt instructed to f/u with PCP, cardiology, and neurology. Pt told to obtain a CBC in 1 week to ensure leukocytosis (likely from steroids) resolves. -Tremayne Hurtaod MD PGY1 Minutes to complete discharge: 37 Discharge Summary Reason For Visit: CHEST PAIN Condition: Stable - Instructions Diet, Activity, Other Instructions: You have been treated for an acute exacerbation of COPD Please increase your activity as tolerated. Please follow a low salt/fat diet. I have attached a copy of SLATER diet which is recommended by [place] [employer]. You have been started on new medications, please take as instructed: Hydralazine 10mg by mouth twice daily (morning and evening) Spironolactone- 12.5mg by mouth once daily. lisinopril- 5mg by mouth once daily. Isosorbide Dinitrate- 5mg by mouth twice daily atorvastatin- 40mg by mouth at night. Aspirin 81mg daily. I have given you a prescription for Lasix(water pill) that you should only take when you notice that you have gained 3lbs or more. You must weigh yourself daily. You will need to complete a short taper of oral prednisone. Taper instructions. 40 x2 days , then 30mg for 2 days, then 20mg for 2 days, then 10 mg for 2 days, then 5mg for 2 days, then stop. Follow up appointments: -You will need to see your Machine Operator (Dr. Orellana)in one week. -You will need to see your Primary doctor in one week. -You will need follow up with Pulmonogist (Dr. Zamarripa) in one week. Please return to ER immediately if you have severe shortness of breath, chest pains, or develop fever or chills. Referrals: Handy Stevenson MD [Staff Physician] - 1 Week Shantanu Bonilla MD [Staff Physician] - 3 Weeks Jaydon Orellana MD [Staff Physician] - 1 Week Disposition: HOME - Home Medications Comprehensive Discharge Medication List: Ambulatory Orders Albuterol Sulfate Inhaler - [Ventolin HFA Inhaler -] 1 puff IH QID PRN 30 Days # 1 inhaler 05/20/17 Aspirin Coated [Ecotrin -] 81 mg PO DAILY #30 tablet.ec 05/20/17 Atorvastatin Ca [Lipitor] 40 mg PO HS #30 tablet 05/20/17 Furosemide [Lasix -] 20 mg PO DAILY #30 tablet 05/20/17 Gabapentin [Neurontin -] 300 mg PO HS #30 capsule 05/20/17 Isosorbide Dinitrate [Isordil -] 5 mg PO BIDISORDIL #30 tablet 05/20/17 Lisinopril [Prinivil] 5 mg PO DAILY #30 tablet 05/20/17 Prednisone See Taper PO DAILY #32 tablet 05/20/17 Spironolactone [Aldactone -] 12.5 mg PO DAILY #30 tablet 05/20/17 hydrALAZINE HCL [Apresoline -] 10 mg PO BID #60 tablet 05/20/17 This patient is new to me today: No Emergency Visit: Yes ED Registration Date: 05/14/17 Care time: The patient presented to the Emergency Department on the above date and was hospitalized for further evaluation of their emergent condition. Critical Care patient: No - Discharge Referral Referred to [facility] Med [facility] No
== END 2017-05-20 13:35 | disposition home or self-care (01) | DRG 140 ==
LOC: JER 15:04 → JERBED 21:07 → OBSVTOIN 22:17 → J4W 05-15 19:22
PROVIDERS: ADMIT Internal Medicine; ATTEND Hospitalist
DX: J44.1 Chronic obstructive pulmonary disease with (acute) exacerbation (principal); I11.0 Hypertensive heart disease with heart failure; M54.12 Radiculopathy, cervical region; I50.23 Acute on chronic systolic (congestive) heart failure; F14.10 Cocaine abuse, uncomplicated; F32.9 Major depressive disorder, single episode, unspecified; D72.829 Elevated white blood cell count, unspecified; I25.10 Atherosclerotic heart disease of native coronary artery without angina pectoris; R07.9 Chest pain, unspecified; E11.9 Type 2 diabetes mellitus without complications; F17.210 Nicotine dependence, cigarettes, uncomplicated; I44.7 Left bundle-branch block, unspecified; R06.89 Other abnormalities of breathing; I42.9 Cardiomyopathy, unspecified; L40.9 Psoriasis, unspecified; I65.29 Occlusion and stenosis of unspecified carotid artery
CPT/HCPCS: 36415; 36600; 70491-TC; 71046-TC-FY; 71275-TC; 80048; 80053; 80061; 80307; 81003; 81015; 82375; 82550; 82803; 82962; 83036; 83050; 83721; 83735; 83880; 84100; 84439; 84443; 84481; 84484; 85025; 85027; 85610; 87040; 87070; 87086; 87205; 87804; 87899; 90688; 93005; 93010; 93306-TC; 93880-TC; 94640; 94761; 97116-GP; 97161-GP; 99285-25; G0378; J1100; J1644

== ENCOUNTER 2020-05-23 06:24 | Inpatient (IN) | payer OTHER ==
[2020-05-23] MEDS ORDERED: RAPID SEQUENCE INTUBATION KIT NR ONE (06:36)
[2020-05-23] MEDS ORDERED: ETOMIDATE 20 MG/10 ML AMPUL IVPUSH ONE (06:54)
[2020-05-23] MEDS ORDERED: MIDAZOLAM 100 MG/100 ML MG IVPB ONE (06:54)
[2020-05-23] MEDS ORDERED: SUCCINYLCHOLINE CHLORIDE 200 MG/10 ML VIAL IVPUSH ONE (06:54)
[2020-05-23] MEDS ORDERED: ROCURONIUM BROMIDE 50 MG/5 ML VIAL IV ONE ×2 (06:56)
[2020-05-23] MEDS: MIDAZOLAM 100 MG/100 ML MG IVPB SCH (07:02)
[2020-05-23 07:21] LABS: BASO % 0.3 % (0-2.0); EOS % 1.7 % (0-4.5); HEMATOCRIT 42.8 % (35.4-49); HEMOGLOBIN 14.3 GM/dL (11.7-16.9); LYMPH % 10.5 % (8-40); MCH 32.1 pg (25.7-33.7); MCHC 33.4 g/dl (32.0-35.9); MEAN PLT VOLUME 8.9 fl (7.5-11.1); MONO % 12.6 % (3.8-10.2); NEUT % 74.9 % (42.8-82.8); PLATELET COUNT 269 K/MM3 (134-434); RBC 4.46 M/mm3 (4.00-5.60); RDW 15.2 % (11.9-15.9); WHITE BLOOD COUNT 7.9 K/mm3 (4.0-10.0)
[2020-05-23 07:30] LABS: INR 0.96 (0.83-1.09); PROTHROMBIN TIME (PATIENT) 11.6 SEC (9.7-13.0)
[2020-05-23 07:32] LABS: ACTIVATED PTT 30.1 SECONDS (25.2-36.5)
[2020-05-23] MEDS ORDERED: FENTANYL NS IVPB 500 MCG/100 ML BAG IVPB ONE (07:35)
[2020-05-23 07:39] LABS: CHLORIDE 95 mmol/L (98-107); POTASSIUM 4.3 mmol/L (3.5-5.1); SODIUM 136 mmol/L (136-145)
[2020-05-23 07:41] LABS: CALCIUM 8.7 mg/dL (8.5-10.1)
[2020-05-23 07:42] LABS: ALBUMIN 3.4 g/dl (3.4-5.0); ANION GAP 6 MMOL/L (8-16); BLOOD UREA NITROGEN 25.8 mg/dL (7-18); CO2 36 mmol/L (21-32); GLUCOSE,RANDOM 234 mg/dL (74-106)
[2020-05-23 07:45] LABS: SGOT/AST 10 U/L (15-37); SGPT/ALT 36 U/L (13-61)
[2020-05-23] MEDS ORDERED: FENTANYL INJECTION 500 MCG in DEXTROSE 5%-WATER - 90 ML IVPB SCH (07:45)
[2020-05-23 07:46] LABS: BILIRUBIN,TOTAL 0.6 mg/dL (0.2-1); TOT PROT 6.4 g/dl (6.4-8.2)
[2020-05-23] MEDS ORDERED: PROPOFOL 200 MG/20 ML VIAL IVPUSH ONE (07:47)
[2020-05-23 07:48] LABS: ALK PHOS 59 U/L (45-117)
[2020-05-23] MEDS ORDERED: VANCOMYCIN 1 GM in D5W (PRE-DOCKED) 1,000 MG/250 ML IVPB ONE (08:07)
[2020-05-23] MEDS ORDERED: PIPERACILLIN/TAZOB 4.5 GM 4.5 GM in DEXTROSE 5%-WATER 100 ML IVPB ONE (08:07)
[2020-05-23] MEDS ORDERED: PROPOFOL 1,000,000 MCG/100 ML VIAL ONE (08:31)
[2020-05-23] MEDS: PROPOFOL 1,000,000 MCG/100 ML VIAL IVPB SCH ×2 (08:35→16:02)
[2020-05-23 08:46] LABS: N-TERMINAL BNP 219.9 pg/ml (5-125)
[2020-05-23 08:52] LABS: PH,URINE 5.5 (5.0-8.0); URINE APPEARANCE CLEAR; URINE BILIRUBIN NEGATIVE (NEGATIVE); URINE COLOR YELLOW; URINE GLUCOSE (UA) NEGATIVE (NEGATIVE); URINE KETONE NEGATIVE (NEGATIVE); URINE LEUK ESTERASE NEGATIVE (NEGATIVE); URINE NITRITE NEGATIVE (NEGATIVE); URINE PROTEIN NEGATIVE (NEGATIVE); URINE UROBILINOGEN 0.2 mg/dL (0.2-1.0)
[2020-05-23] MEDS ORDERED: DEXTROSE 5%-WATER 100 ML IVPB ONE (10:35)
[2020-05-23] MEDS ORDERED: PIPERACILLIN/TAZOBACTAM 4.5 GM VIAL IVPB ONE ×4 (10:35→21:11)
[2020-05-23] MEDS ORDERED: SODIUM CHLORIDE 100 ML IVPB ONE ×3 (14:19→21:11)
[2020-05-23] MEDS: PIPERACILLIN/TAZOB 4.5 GM 4.5 GM in SODIUM CHLORIDE 100 ML IVPB SCH ×2 (16:18→21:18)
[2020-05-23] MEDS: INSULIN SLIDING SCALE (NOVOLOG) 1 VIAL SQ SCH ×2 (16:57→22:47)
[2020-05-23 18:03] LABS: URINE AMPHETAMINES NEGATIVE ng/ml (CUTOFF=500); URINE BARBITURATES NEGATIVE ng/ml (CUTOFF=200)
[2020-05-23 18:04] LABS: METHADONE, UR NEGATIVE ng/ml (CUTOFF=300); OPIATES, URI NEGATIVE ng/ml (CUTOFF=300); PHENCYCLIDINE,URINE NEGATIVE ng/ml (CUTOFF=25)
[2020-05-23 18:21] LABS: COCAINE, UR POSITIVE ng/ml (CUTOFF=300); URINE BENZODIAZEPINES POSITIVE ng/ml (CUTOFF=200)
[2020-05-23] MEDS: MUPIROCIN 2% TOPICAL OINTMENT FOR DECOLONIZATION NS SCH (21:20)
[2020-05-23] MEDS: CHLORHEXIDINE GLUCONATE 4% CLEANSER FOR DECOLONIZATION TP SCH (21:20)
[2020-05-24] MEDS ORDERED: SODIUM CHLORIDE 100 ML IVPB ONE (00:55)
[2020-05-24] MEDS ORDERED: PIPERACILLIN/TAZOBACTAM 4.5 GM VIAL IVPB ONE ×4 (00:55→20:04)
[2020-05-24] MEDS: PIPERACILLIN/TAZOB 4.5 GM 4.5 GM in SODIUM CHLORIDE 100 ML IVPB SCH (04:36)
[2020-05-24 07:30] LABS: BASO % 0.2 % (0-2.0); EOS % 2.4 % (0-4.5); HEMATOCRIT 39.6 % (35.4-49); HEMOGLOBIN 13.3 GM/dL (11.7-16.9); LYMPH % 14.5 % (8-40); MCH 31.7 pg (25.7-33.7); MCHC 33.6 g/dl (32.0-35.9); MEAN CELL VOLUME 94.4 fl (80-96); MEAN PLT VOLUME 8.7 fl (7.5-11.1); MONO % 8.1 % (3.8-10.2); NEUT % 74.8 % (42.8-82.8); PLATELET COUNT 237 K/MM3 (134-434); RDW 14.6 % (11.9-15.9)
[2020-05-24 07:43] LABS: POTASSIUM 4.1 mmol/L (3.5-5.1)
[2020-05-24] MEDS: MIDAZOLAM 100 MG/100 ML MG IVPB SCH (07:48)
[2020-05-24 07:49] LABS: ALBUMIN 2.9 g/dl (3.4-5.0); BLOOD UREA NITROGEN 19.8 mg/dL (7-18)
[2020-05-24 07:51] LABS: CALCIUM 8.3 mg/dL (8.5-10.1)
[2020-05-24 07:52] LABS: CREATININE 0.8 mg/dL (0.55-1.3); PHOSPHOROUS 2.9 mg/dL (2.5-4.9)
[2020-05-24 07:53] LABS: BILIRUBIN,TOTAL 0.4 mg/dL (0.2-1); TOT PROT 5.5 g/dl (6.4-8.2)
[2020-05-24] MEDS ORDERED: DEXTROSE 5%-WATER 100 ML IVPB ONE ×3 (09:35→20:04)
[2020-05-24] MEDS: PIPERACILLIN/TAZOB 4.5 GM 4.5 GM in DEXTROSE 5%-WATER 100 ML IVPB SCH ×3 (09:42→22:29)
[2020-05-24] MEDS: ENOXAPARIN NA (PORCINE) 40 MG/0.4 ML DISP.SYRIN SQ SCH (09:43)
[2020-05-24] MEDS ORDERED: ACETAMINOPHEN 1000 MG/100 ML VIAL (NON FORMULARY) IVPB ONE (10:15)
[2020-05-24] MEDS: MUPIROCIN 2% TOPICAL OINTMENT FOR DECOLONIZATION NS SCH ×2 (11:22→22:29)
[2020-05-24] MEDS: PROPOFOL 1,000,000 MCG/100 ML VIAL IVPB SCH ×2 (11:26→16:31)
[2020-05-24] MEDS: INSULIN SLIDING SCALE (NOVOLOG) 1 VIAL SQ SCH ×2 (11:34→17:10)
[2020-05-24 12:52] LABS: ANISOCYTOSIS 0; MACROCYTOSIS 0; OVALOCYTE 1+; PLATELET ESTIMATE NORMAL
[2020-05-24] MEDS: ACETAMINOPHEN 1000 MG/100 ML VIAL (NON FORMULARY) IVPB PRN (17:28)
[2020-05-24] MEDS: CHLORHEXIDINE GLUCONATE 4% CLEANSER FOR DECOLONIZATION TP SCH (22:29)
[2020-05-25] MEDS: INSULIN SLIDING SCALE (NOVOLOG) 1 VIAL SQ SCH ×5 (00:39→22:07)
[2020-05-25] MEDS ORDERED: DEXTROSE 5%-WATER 100 ML IVPB ONE ×4 (01:10→21:29)
[2020-05-25] MEDS ORDERED: PIPERACILLIN/TAZOBACTAM 4.5 GM VIAL IVPB ONE ×4 (01:10→21:29)
[2020-05-25] MEDS: PIPERACILLIN/TAZOB 4.5 GM 4.5 GM in DEXTROSE 5%-WATER 100 ML IVPB SCH ×4 (02:11→22:08)
[2020-05-25 07:16] LABS: BASO % 0.2 % (0-2.0); EOS % 2.8 % (0-4.5); HEMATOCRIT 40.4 % (35.4-49); HEMOGLOBIN 13.4 GM/dL (11.7-16.9); MCH 31.5 pg (25.7-33.7); MCHC 33.2 g/dl (32.0-35.9); MEAN PLT VOLUME 8.9 fl (7.5-11.1); MONO % 9.6 % (3.8-10.2); NEUT % 67.4 % (42.8-82.8); PLATELET COUNT 243 K/MM3 (134-434); RBC 4.25 M/mm3 (4.00-5.60); RDW 14.8 % (11.9-15.9); WHITE BLOOD COUNT 4.6 K/mm3 (4.0-10.0)
[2020-05-25 07:30] LABS: POTASSIUM 3.7 mmol/L (3.5-5.1)
[2020-05-25 07:32] LABS: BLOOD UREA NITROGEN 18.6 mg/dL (7-18); CALCIUM 8.3 mg/dL (8.5-10.1); MAGNESIUM 2.1 mg/dL (1.8-2.4)
[2020-05-25 07:35] LABS: CREATININE 0.8 mg/dL (0.55-1.3)
[2020-05-25 07:36] LABS: PHOSPHOROUS 3.4 mg/dL (2.5-4.9)
[2020-05-25] MEDS: PROPOFOL 1,000,000 MCG/100 ML VIAL IVPB SCH (09:28)
[2020-05-25] MEDS: ENOXAPARIN NA (PORCINE) 40 MG/0.4 ML DISP.SYRIN SQ SCH (09:33)
[2020-05-25] MEDS: MUPIROCIN 2% TOPICAL OINTMENT FOR DECOLONIZATION NS SCH ×2 (09:36→22:08)
[2020-05-25] MEDS: MIDAZOLAM 100 MG/100 ML MG IVPB SCH (14:24)
[2020-05-25] MEDS: ACETAMINOPHEN 1000 MG/100 ML VIAL (NON FORMULARY) IVPB PRN (14:25)
[2020-05-25] MEDS ORDERED: IPRATROPIUM BR 0.02% 0.5 MG/2.5 ML VIAL.NEB. NEB ONE (17:11)
[2020-05-25] MEDS ORDERED: FUROSEMIDE 40 MG/4 ML INJECTABLE VIAL IVPUSH ONE (17:40)
[2020-05-25] MEDS ORDERED: METOPROLOL TARTRATE 5 MG/5 ML VIAL IVPUSH ONE (17:41)
[2020-05-25] MEDS: IPRATROPIUM BR 0.02% 0.5 MG/2.5 ML VIAL.NEB. NEB PRN (17:44)
[2020-05-25] MEDS ORDERED: ALPRAZolam 0.25 MG TABLET PO PRN (19:56)
[2020-05-25] MEDS ORDERED: MELATONIN 1 MG TABLET PO SCH (22:00)
[2020-05-25] MEDS: CHLORHEXIDINE GLUCONATE 4% CLEANSER FOR DECOLONIZATION TP SCH (22:08)
[2020-05-26] MEDS ORDERED: PIPERACILLIN/TAZOBACTAM 4.5 GM VIAL IVPB ONE ×3 (02:38→15:49)
[2020-05-26] MEDS ORDERED: DEXTROSE 5%-WATER 100 ML IVPB ONE ×4 (02:38→21:55)
[2020-05-26] MEDS: PIPERACILLIN/TAZOB 4.5 GM 4.5 GM in DEXTROSE 5%-WATER 100 ML IVPB SCH ×3 (02:40→15:50)
[2020-05-26 07:10] LABS: BASO % 0.9 % (0-2.0); EOS % 1.9 % (0-4.5); HEMOGLOBIN 13.7 GM/dL (11.7-16.9); LYMPH % 12.4 % (8-40); MCH 31.7 pg (25.7-33.7); MCHC 33.5 g/dl (32.0-35.9); MEAN CELL VOLUME 94.6 fl (80-96); MEAN PLT VOLUME 8.9 fl (7.5-11.1); MONO % 11.9 % (3.8-10.2); NEUT % 72.9 % (42.8-82.8); PLATELET COUNT 228 K/MM3 (134-434); RBC 4.33 M/mm3 (4.00-5.60); RDW 14.3 % (11.9-15.9)
[2020-05-26 07:41] LABS: POTASSIUM 3.6 mmol/L (3.5-5.1)
[2020-05-26 08:04] LABS: CALCIUM 8.6 mg/dL (8.5-10.1)
[2020-05-26 08:05] LABS: BLOOD UREA NITROGEN 15.3 mg/dL (7-18); MAGNESIUM 2.3 mg/dL (1.8-2.4)
[2020-05-26 08:08] LABS: CREATININE 0.7 mg/dL (0.55-1.3); PHOSPHOROUS 3.6 mg/dL (2.5-4.9)
[2020-05-26] MEDS: IPRATROPIUM BR 0.02% 0.5 MG/2.5 ML VIAL.NEB. NEB PRN (08:50)
[2020-05-26 09:29] LABS: ANISOCYTOSIS 1+; MACROCYTOSIS 0; PLATELET ESTIMATE NORMAL
[2020-05-26] MEDS ORDERED: CARVEDILOL 3.125 MG TABLET (FP) PO SCH (10:00)
[2020-05-26] MEDS: MUPIROCIN 2% TOPICAL OINTMENT FOR DECOLONIZATION NS SCH (10:11)
[2020-05-26] MEDS: ENOXAPARIN NA (PORCINE) 40 MG/0.4 ML DISP.SYRIN SQ SCH (10:12)
[2020-05-26] MEDS: INSULIN SLIDING SCALE (NOVOLOG) 1 VIAL SQ SCH ×4 (15:55→22:47)
[2020-05-26] MEDS ORDERED: IPRATROPIUM BR 0.02% 0.5 MG/2.5 ML VIAL.NEB. NEB PRN (18:59)
[2020-05-26] MEDS ORDERED: CARVEDILOL 3.125 MG TABLET (FP) PO ONE (22:00)
[2020-05-26] MEDS: CARVEDILOL 3.125 MG TABLET (FP) PO SCH (22:49)
[2020-05-26] MEDS: CEFTRIAXONE 2 GM in DEXTROSE 5%-WATER 2 GM/100 ML BAG IVPB SCH (22:49)
[2020-05-26] MEDS: MELATONIN 1 MG TABLET PO SCH (22:50)
[2020-05-27] MEDS: guaiFENesin/D-METHORPHAN HB 10 ML UNIT-DOSE CUPS PO PRN (03:34)
[2020-05-27] MEDS: INSULIN SLIDING SCALE (NOVOLOG) 1 VIAL SQ SCH ×4 (05:24→22:17)
[2020-05-27 08:22] LABS: BASO % 0.7 % (0-2.0); EOS % 1.5 % (0-4.5); HEMATOCRIT 40.8 % (35.4-49); HEMOGLOBIN 13.7 GM/dL (11.7-16.9); LYMPH % 13.8 % (8-40); MCH 31.4 pg (25.7-33.7); MCHC 33.5 g/dl (32.0-35.9); MEAN CELL VOLUME 93.8 fl (80-96); MEAN PLT VOLUME 8.7 fl (7.5-11.1); MONO % 11.1 % (3.8-10.2); NEUT % 72.9 % (42.8-82.8); PLATELET COUNT 241 K/MM3 (134-434); RBC 4.35 M/mm3 (4.00-5.60); RDW 14.2 % (11.9-15.9); WHITE BLOOD COUNT 7.1 K/mm3 (4.0-10.0)
[2020-05-27 09:01] LABS: POTASSIUM 3.9 mmol/L (3.5-5.1)
[2020-05-27 09:12] LABS: CALCIUM 8.9 mg/dL (8.5-10.1)
[2020-05-27 09:13] LABS: ALBUMIN 2.9 g/dl (3.4-5.0); BLOOD UREA NITROGEN 14.7 mg/dL (7-18)
[2020-05-27 09:14] LABS: BILIRUBIN,TOTAL 0.5 mg/dL (0.2-1)
[2020-05-27 09:16] LABS: CREATININE 0.6 mg/dL (0.55-1.3)
[2020-05-27 09:17] LABS: TOT PROT 6.1 g/dl (6.4-8.2)
[2020-05-27] MEDS: ENOXAPARIN NA (PORCINE) 40 MG/0.4 ML DISP.SYRIN SQ SCH (09:29)
[2020-05-27] MEDS: CARVEDILOL 3.125 MG TABLET (FP) PO SCH ×2 (09:29→21:30)
[2020-05-27] MEDS ORDERED: amLODIPine BESYLATE 5 MG TABLET (FP) PO SCH (10:00)
[2020-05-27] MEDS ORDERED: FUROSEMIDE 40 MG/4 ML INJECTABLE VIAL IVPUSH STA (10:01)
[2020-05-27] MEDS ORDERED: LISINOPRIL 5 MG TABLET PO STA (10:02)
[2020-05-27] MEDS ORDERED: ALBUTEROL SO4 0.083% IH SOL 2.5 MG/3 ML VIAL.NEB. NEB PRN (10:18)
[2020-05-27] MEDS ORDERED: BUDESONIDE/FORMETEROL FUMARATE 160/4.5 mcg INHALER IH ONE (10:18)
[2020-05-27] MEDS: CEFTRIAXONE 2 GM in DEXTROSE 5%-WATER 2 GM/100 ML BAG IVPB SCH (10:34)
[2020-05-27] MEDS: ALBUTEROL SO4 2.5/IPRATROPIUM 0.5 INH SOL 3 ML VIAL.NEB. NEB SCH ×3 (11:40→20:10)
[2020-05-27] MEDS: levETIRAcetam XR 750 MG TAB PO SCH (11:47)
[2020-05-27] MEDS ORDERED: FUROSEMIDE 40 MG/4 ML INJECTABLE VIAL IVPUSH SCH (14:00)
[2020-05-27] MEDS: MELATONIN 1 MG TABLET PO SCH (21:30)
[2020-05-27] MEDS: QUEtiapine FUMARATE 25 MG TABLET PO SCH (21:30)
[2020-05-28] MEDS: INSULIN SLIDING SCALE (NOVOLOG) 1 VIAL SQ SCH ×4 (04:03→21:51)
[2020-05-28] MEDS: ALBUTEROL SO4 2.5/IPRATROPIUM 0.5 INH SOL 3 ML VIAL.NEB. NEB SCH ×4 (07:48→20:00)
[2020-05-28] MEDS: CARVEDILOL 3.125 MG TABLET (FP) PO SCH ×2 (09:31→21:21)
[2020-05-28] MEDS: levETIRAcetam XR 750 MG TAB PO SCH (09:32)
[2020-05-28] MEDS: ENOXAPARIN NA (PORCINE) 40 MG/0.4 ML DISP.SYRIN SQ SCH (09:35)
[2020-05-28] MEDS: CEFTRIAXONE 2 GM in DEXTROSE 5%-WATER 2 GM/100 ML BAG IVPB SCH (09:35)
[2020-05-28] MEDS: TIOTROPIUM BROMIDE 2.5 MCG (SPIRIVA) RESPIMAT INHALER IH SCH (09:36)
[2020-05-28] MEDS ORDERED: FUROSEMIDE 40 MG/4 ML INJECTABLE VIAL IVPUSH SCH (10:00)
[2020-05-28 10:37] LABS: BASO % 0.8 % (0-2.0); EOS % 1.2 % (0-4.5); HEMOGLOBIN 13.3 GM/dL (11.7-16.9); LYMPH % 14.2 % (8-40); MCH 31.5 pg (25.7-33.7); MCHC 33.3 g/dl (32.0-35.9); MEAN CELL VOLUME 94.6 fl (80-96); MEAN PLT VOLUME 8.9 fl (7.5-11.1); NEUT % 72.8 % (42.8-82.8); PLATELET COUNT 240 K/MM3 (134-434); RBC 4.23 M/mm3 (4.00-5.60); RDW 14.3 % (11.9-15.9); WHITE BLOOD COUNT 7.4 K/mm3 (4.0-10.0)
[2020-05-28 11:05] LABS: POTASSIUM 3.5 mmol/L (3.5-5.1)
[2020-05-28 11:08] LABS: BLOOD UREA NITROGEN 15.7 mg/dL (7-18)
[2020-05-28 11:12] LABS: CREATININE 0.7 mg/dL (0.55-1.3); PHOSPHOROUS 3.3 mg/dL (2.5-4.9)
[2020-05-28] MEDS: ACETAMINOPHEN 325 MG TABLET (FP) PO PRN (19:53)
[2020-05-28] MEDS: QUEtiapine FUMARATE 25 MG TABLET PO SCH (21:21)
[2020-05-28] MEDS: MELATONIN 1 MG TABLET PO SCH (21:22)
[2020-05-28] MEDS: guaiFENesin/D-METHORPHAN HB 10 ML UNIT-DOSE CUPS PO PRN (21:23)
[2020-05-28] MEDS ORDERED: SACUBITRIL/VALSARTAN 24 MG-26 MG TABLET PO SCH (22:00)
[2020-05-29] MEDS: INSULIN SLIDING SCALE (NOVOLOG) 1 VIAL SQ SCH ×4 (05:08→21:15)
[2020-05-29] MEDS: ALBUTEROL SO4 2.5/IPRATROPIUM 0.5 INH SOL 3 ML VIAL.NEB. NEB SCH ×4 (07:37→20:35)
[2020-05-29 08:40] LABS: BASO % 0.4 % (0-2.0); HEMATOCRIT 39.6 % (35.4-49); HEMOGLOBIN 13.5 GM/dL (11.7-16.9); LYMPH % 12.6 % (8-40); MCH 31.5 pg (25.7-33.7); MEAN CELL VOLUME 92.5 fl (80-96); MEAN PLT VOLUME 8.5 fl (7.5-11.1); MONO % 11.1 % (3.8-10.2); NEUT % 74.9 % (42.8-82.8); PLATELET COUNT 238 K/MM3 (134-434); RBC 4.28 M/mm3 (4.00-5.60); RDW 14.2 % (11.9-15.9); WHITE BLOOD COUNT 7.1 K/mm3 (4.0-10.0)
[2020-05-29 09:02] LABS: POTASSIUM 3.8 mmol/L (3.5-5.1)
[2020-05-29 09:10] LABS: BLOOD UREA NITROGEN 15.1 mg/dL (7-18); MAGNESIUM 1.9 mg/dL (1.8-2.4)
[2020-05-29 09:13] LABS: BILIRUBIN,TOTAL 0.5 mg/dL (0.2-1); CREATININE 0.7 mg/dL (0.55-1.3); PHOSPHOROUS 3.2 mg/dL (2.5-4.9); TOT PROT 6.2 g/dl (6.4-8.2)
[2020-05-29] MEDS: guaiFENesin/D-METHORPHAN HB 10 ML UNIT-DOSE CUPS PO PRN ×2 (09:40→18:13)
[2020-05-29] MEDS: FUROSEMIDE 40 MG TABLET (FP) PO SCH (09:47)
[2020-05-29] MEDS: CARVEDILOL 3.125 MG TABLET (FP) PO SCH (09:47)
[2020-05-29] MEDS: CEFTRIAXONE 2 GM in DEXTROSE 5%-WATER 2 GM/100 ML BAG IVPB SCH (09:47)
[2020-05-29] MEDS: ENOXAPARIN NA (PORCINE) 40 MG/0.4 ML DISP.SYRIN SQ SCH (09:48)
[2020-05-29] MEDS: levETIRAcetam XR 750 MG TAB PO SCH (09:48)
[2020-05-29] MEDS: LISINOPRIL 5 MG TABLET PO SCH (09:48)
[2020-05-29] MEDS: TIOTROPIUM BROMIDE 2.5 MCG (SPIRIVA) RESPIMAT INHALER IH SCH (09:48)
[2020-05-29] MEDS ORDERED: FUROSEMIDE 40 MG TABLET (FP) PO SCH (10:00)
[2020-05-29] MEDS ORDERED: CARVEDILOL 3.125 MG TABLET (FP) PO SCH (10:00)
[2020-05-29] MEDS: MORPHINE SULFATE 2 MG/ML VIAL IVPUSH PRN ×2 (14:06→19:48)
[2020-05-29] MEDS: ACETAMINOPHEN 325 MG TABLET (FP) PO PRN (18:18)
[2020-05-29] MEDS: MELATONIN 1 MG TABLET PO SCH (21:22)
[2020-05-29] MEDS: QUEtiapine FUMARATE 25 MG TABLET PO SCH (21:22)
[2020-05-29] MEDS: METOPROLOL TARTRATE 25 MG TABLET (FP) PO SCH (21:22)
[2020-05-30] MEDS: ACETAMINOPHEN 325 MG TABLET (FP) PO PRN (00:37)
[2020-05-30] MEDS: INSULIN SLIDING SCALE (NOVOLOG) 1 VIAL SQ SCH ×4 (06:38→21:47)
[2020-05-30 07:46] LABS: BASO % 0.5 % (0-2.0); EOS % 0.9 % (0-4.5); HEMATOCRIT 37.4 % (35.4-49); HEMOGLOBIN 12.7 GM/dL (11.7-16.9); LYMPH % 11.9 % (8-40); MCH 31.9 pg (25.7-33.7); MEAN CELL VOLUME 93.7 fl (80-96); MEAN PLT VOLUME 8.3 fl (7.5-11.1); MONO % 12.5 % (3.8-10.2); NEUT % 74.2 % (42.8-82.8); PLATELET COUNT 198 K/MM3 (134-434); RBC 3.99 M/mm3 (4.00-5.60); RDW 13.7 % (11.9-15.9); WHITE BLOOD COUNT 6.1 K/mm3 (4.0-10.0)
[2020-05-30 07:58] LABS: POTASSIUM 3.6 mmol/L (3.5-5.1)
[2020-05-30 08:00] LABS: CALCIUM 8.6 mg/dL (8.5-10.1)
[2020-05-30 08:01] LABS: ALBUMIN 2.7 g/dl (3.4-5.0); BLOOD UREA NITROGEN 13.6 mg/dL (7-18); MAGNESIUM 1.9 mg/dL (1.8-2.4)
[2020-05-30 08:04] LABS: CREATININE 0.6 mg/dL (0.55-1.3); PHOSPHOROUS 4.1 mg/dL (2.5-4.9)
[2020-05-30 08:06] LABS: BILIRUBIN,TOTAL 0.2 mg/dL (0.2-1); TOT PROT 5.4 g/dl (6.4-8.2)
[2020-05-30] MEDS: ALBUTEROL SO4 2.5/IPRATROPIUM 0.5 INH SOL 3 ML VIAL.NEB. NEB SCH ×4 (08:25→20:34)
[2020-05-30] MEDS: ENOXAPARIN NA (PORCINE) 40 MG/0.4 ML DISP.SYRIN SQ SCH (09:33)
[2020-05-30] MEDS: levETIRAcetam XR 750 MG TAB PO SCH (09:33)
[2020-05-30] MEDS: METOPROLOL TARTRATE 25 MG TABLET (FP) PO SCH (09:33)
[2020-05-30] MEDS: FUROSEMIDE 40 MG TABLET (FP) PO SCH (09:33)
[2020-05-30] MEDS: LISINOPRIL 5 MG TABLET PO SCH (09:34)
[2020-05-30] MEDS: CEFTRIAXONE 2 GM in DEXTROSE 5%-WATER 2 GM/100 ML BAG IVPB SCH (09:34)
[2020-05-30] MEDS: TIOTROPIUM BROMIDE 2.5 MCG (SPIRIVA) RESPIMAT INHALER IH SCH (09:34)
[2020-05-30] MEDS: guaiFENesin/D-METHORPHAN HB 10 ML UNIT-DOSE CUPS PO PRN ×2 (09:37→21:55)
[2020-05-30] MEDS: metoPROLOL SUCCINATE 25 MG TAB.SR.24H (FP) PO SCH (14:06)
[2020-05-30] MEDS: MORPHINE SULFATE 2 MG/ML VIAL IVPUSH PRN (14:07)
[2020-05-30] MEDS: guaiFENesin/CODEINE 5 ML UNIT-DOSE CUPS PO SCH ×2 (17:54→21:56)
[2020-05-30] MEDS: MELATONIN 1 MG TABLET PO SCH (21:46)
[2020-05-30] MEDS: SACUBITRIL/VALSARTAN 24 MG-26 MG TABLET PO SCH (21:48)
[2020-05-30] MEDS: QUEtiapine FUMARATE 25 MG TABLET PO SCH (21:48)
[2020-05-31] MEDS: INSULIN SLIDING SCALE (NOVOLOG) 1 VIAL SQ SCH ×4 (05:56→22:36)
[2020-05-31] MEDS: guaiFENesin/CODEINE 5 ML UNIT-DOSE CUPS PO SCH ×3 (05:59→22:33)
[2020-05-31] MEDS: ALBUTEROL SO4 2.5/IPRATROPIUM 0.5 INH SOL 3 ML VIAL.NEB. NEB SCH ×4 (08:25→20:04)
[2020-05-31 09:15] LABS: BASO % 0.4 % (0-2.0); EOS % 0.6 % (0-4.5); HEMATOCRIT 36.6 % (35.4-49); HEMOGLOBIN 12.4 GM/dL (11.7-16.9); LYMPH % 10.4 % (8-40); MCH 31.4 pg (25.7-33.7); MCHC 33.8 g/dl (32.0-35.9); MEAN PLT VOLUME 9.1 fl (7.5-11.1); MONO % 10.3 % (3.8-10.2); NEUT % 78.3 % (42.8-82.8); PLATELET COUNT 192 K/MM3 (134-434); RBC 3.94 M/mm3 (4.00-5.60); RDW 14.5 % (11.9-15.9); WHITE BLOOD COUNT 7.5 K/mm3 (4.0-10.0)
[2020-05-31 09:16] LABS: POTASSIUM 3.5 mmol/L (3.5-5.1)
[2020-05-31 09:19] LABS: ALBUMIN 2.7 g/dl (3.4-5.0); BLOOD UREA NITROGEN 9.1 mg/dL (7-18); CALCIUM 8.6 mg/dL (8.5-10.1); MAGNESIUM 1.8 mg/dL (1.8-2.4)
[2020-05-31 09:22] LABS: CREATININE 0.6 mg/dL (0.55-1.3); PHOSPHOROUS 2.6 mg/dL (2.5-4.9)
[2020-05-31 09:24] LABS: BILIRUBIN,TOTAL 0.4 mg/dL (0.2-1); TOT PROT 5.6 g/dl (6.4-8.2)
[2020-05-31] MEDS: levETIRAcetam XR 750 MG TAB PO SCH (09:41)
[2020-05-31] MEDS: metoPROLOL SUCCINATE 25 MG TAB.SR.24H (FP) PO SCH (09:41)
[2020-05-31] MEDS: SACUBITRIL/VALSARTAN 24 MG-26 MG TABLET PO SCH ×2 (09:41→22:34)
[2020-05-31] MEDS: FUROSEMIDE 40 MG TABLET (FP) PO SCH (09:41)
[2020-05-31] MEDS: CEFTRIAXONE 2 GM in DEXTROSE 5%-WATER 2 GM/100 ML BAG IVPB SCH (09:44)
[2020-05-31] MEDS: MORPHINE SULFATE 2 MG/ML VIAL IVPUSH PRN ×3 (09:44→20:05)
[2020-05-31] MEDS: ENOXAPARIN NA (PORCINE) 40 MG/0.4 ML DISP.SYRIN SQ SCH (09:46)
[2020-05-31] MEDS: TIOTROPIUM BROMIDE 2.5 MCG (SPIRIVA) RESPIMAT INHALER IH SCH (09:52)
[2020-05-31] MEDS: predniSONE 20 MG TABLET (UD) PO SCH (11:50)
[2020-05-31] MEDS: ACETAMINOPHEN 325 MG TABLET (FP) PO PRN (13:20)
[2020-05-31 16:01] VITALS: BMI 31.8
[2020-05-31] MEDS: traMADol HCL 50 MG TABLET PO PRN (16:17)
[2020-05-31] MEDS ORDERED: LIDOCAINE 5% TOPICAL PATCH TP ONE (17:00)
[2020-05-31] MEDS: QUEtiapine FUMARATE 25 MG TABLET PO SCH (22:33)
[2020-05-31] MEDS: MELATONIN 1 MG TABLET PO SCH (22:34)
[2020-06-01] MEDS ORDERED: APIXABAN 5 MG TABLET PO SCH
[2020-06-01] MEDS: MORPHINE SULFATE 2 MG/ML VIAL IVPUSH PRN ×5 (00:48→20:46)
[2020-06-01] MEDS: traMADol HCL 50 MG TABLET PO PRN ×3 (02:27→23:45)
[2020-06-01] MEDS ORDERED: LIDOCAINE PATCH REMOVAL MC SCH (05:00)
[2020-06-01] MEDS: guaiFENesin/CODEINE 5 ML UNIT-DOSE CUPS PO SCH (06:01)
[2020-06-01] MEDS ORDERED: ACETAMINOPHEN 500 MG TABLET (FP) PO ONE (06:13)
[2020-06-01] MEDS: INSULIN SLIDING SCALE (NOVOLOG) 1 VIAL SQ SCH ×4 (06:16→21:45)
[2020-06-01] MEDS: ALBUTEROL SO4 2.5/IPRATROPIUM 0.5 INH SOL 3 ML VIAL.NEB. NEB SCH (08:15)
[2020-06-01 08:56] LABS: BASO % 0.6 % (0-2.0); EOS % 0.2 % (0-4.5); HEMATOCRIT 35.8 % (35.4-49); LYMPH % 10.6 % (8-40); MCH 31.8 pg (25.7-33.7); MCHC 33.5 g/dl (32.0-35.9); MEAN CELL VOLUME 94.7 fl (80-96); MEAN PLT VOLUME 9.4 fl (7.5-11.1); MONO % 10.5 % (3.8-10.2); NEUT % 78.1 % (42.8-82.8); PLATELET COUNT 188 K/MM3 (134-434); RBC 3.78 M/mm3 (4.00-5.60); WHITE BLOOD COUNT 8.7 K/mm3 (4.0-10.0)
[2020-06-01] MEDS: FUROSEMIDE 40 MG TABLET (FP) PO SCH (09:18)
[2020-06-01] MEDS: metoPROLOL SUCCINATE 25 MG TAB.SR.24H (FP) PO SCH (09:18)
[2020-06-01] MEDS: SACUBITRIL/VALSARTAN 24 MG-26 MG TABLET PO SCH ×2 (09:19→21:11)
[2020-06-01] MEDS: predniSONE 20 MG TABLET (UD) PO SCH (09:20)
[2020-06-01] MEDS: levETIRAcetam XR 750 MG TAB PO SCH (09:21)
[2020-06-01] MEDS: ENOXAPARIN NA (PORCINE) 100 MG/1 ML DISP.SYRIN SQ SCH ×2 (09:21→21:11)
[2020-06-01] MEDS: CEFTRIAXONE 2 GM in DEXTROSE 5%-WATER 2 GM/100 ML BAG IVPB SCH (09:22)
[2020-06-01] MEDS: TIOTROPIUM BROMIDE 2.5 MCG (SPIRIVA) RESPIMAT INHALER IH SCH (09:33)
[2020-06-01 09:44] LABS: BILIRUBIN,TOTAL 0.4 mg/dL (0.2-1); TOT PROT 5.8 g/dl (6.4-8.2)
[2020-06-01 09:47] LABS: ALBUMIN 2.9 g/dl (3.4-5.0); BLOOD UREA NITROGEN 11.5 mg/dL (7-18); CALCIUM 8.8 mg/dL (8.5-10.1); MAGNESIUM 1.9 mg/dL (1.8-2.4)
[2020-06-01 09:50] LABS: CREATININE 0.6 mg/dL (0.55-1.3)
[2020-06-01 09:52] LABS: POTASSIUM 3.8 mmol/L (3.5-5.1)
[2020-06-01] MEDS: ACETAMINOPHEN 325 MG TABLET (FP) PO PRN (13:59)
[2020-06-01] MEDS: guaiFENesin/CODEINE 5 ML UNIT-DOSE CUPS PO PRN ×2 (16:55→23:39)
[2020-06-01] MEDS: ALBUTEROL SO4 0.083% IH SOL 2.5 MG/3 ML VIAL.NEB. NEB PRN (21:02)
[2020-06-01] MEDS: QUEtiapine FUMARATE 25 MG TABLET PO SCH (21:11)
[2020-06-01] MEDS: MELATONIN 1 MG TABLET PO SCH (21:11)
[2020-06-02] MEDS: MORPHINE SULFATE 2 MG/ML VIAL IVPUSH PRN (02:23)
[2020-06-02] MEDS: INSULIN SLIDING SCALE (NOVOLOG) 1 VIAL SQ SCH ×4 (05:44→21:58)
[2020-06-02 07:51] LABS: BASO % 1.2 % (0-2.0); EOS % 0.2 % (0-4.5); HEMATOCRIT 35.8 % (35.4-49); HEMOGLOBIN 11.9 GM/dL (11.7-16.9); LYMPH % 13.8 % (8-40); MCH 31.5 pg (25.7-33.7); MCHC 33.3 g/dl (32.0-35.9); MEAN CELL VOLUME 94.7 fl (80-96); MEAN PLT VOLUME 9.5 fl (7.5-11.1); MONO % 7.7 % (3.8-10.2); NEUT % 77.1 % (42.8-82.8); PLATELET COUNT 194 K/MM3 (134-434); RBC 3.78 M/mm3 (4.00-5.60); RDW 14.8 % (11.9-15.9); WHITE BLOOD COUNT 8.3 K/mm3 (4.0-10.0)
[2020-06-02 08:24] LABS: POTASSIUM 3.8 mmol/L (3.5-5.1)
[2020-06-02 08:27] LABS: BLOOD UREA NITROGEN 13.9 mg/dL (7-18); CALCIUM 8.8 mg/dL (8.5-10.1)
[2020-06-02 08:31] LABS: CREATININE 0.6 mg/dL (0.55-1.3)
[2020-06-02] MEDS: FUROSEMIDE 40 MG TABLET (FP) PO SCH (09:57)
[2020-06-02] MEDS: levETIRAcetam XR 750 MG TAB PO SCH (10:00)
[2020-06-02] MEDS: SACUBITRIL/VALSARTAN 24 MG-26 MG TABLET PO SCH ×2 (10:00→21:10)
[2020-06-02] MEDS: ENOXAPARIN NA (PORCINE) 100 MG/1 ML DISP.SYRIN SQ SCH ×2 (10:01→21:19)
[2020-06-02] MEDS: predniSONE 20 MG TABLET (UD) PO SCH (10:03)
[2020-06-02] MEDS: TIOTROPIUM BROMIDE 2.5 MCG (SPIRIVA) RESPIMAT INHALER IH SCH (10:04)
[2020-06-02] MEDS: traMADol HCL 50 MG TABLET PO PRN (10:12)
[2020-06-02] MEDS: CYCLOBENZAPRINE HCL 5 MG TABLET PO SCH ×2 (11:12→21:11)
[2020-06-02] MEDS ORDERED: PANTOPRAZOLE 40 MG TABLET PO ONE (11:30)
[2020-06-02] MEDS: ACETAMINOPHEN 325 MG TABLET (FP) PO PRN (12:46)
[2020-06-02] MEDS: guaiFENesin/CODEINE 5 ML UNIT-DOSE CUPS PO PRN (12:47)
[2020-06-02] MEDS: ALBUTEROL SO4 0.083% IH SOL 2.5 MG/3 ML VIAL.NEB. NEB PRN (14:12)
[2020-06-02] MEDS ORDERED: GABAPENTIN 300 MG CAPSULE PO ONE (18:08)
[2020-06-02] MEDS: MELATONIN 1 MG TABLET PO SCH (21:10)
[2020-06-02] MEDS: QUEtiapine FUMARATE 25 MG TABLET PO SCH (21:18)
[2020-06-02] MEDS: ACETAMINOPHEN 500 MG TABLET (FP) PO SCH (21:18)
[2020-06-02] MEDS ORDERED: GABAPENTIN 300 MG CAPSULE PO SCH ×2 (22:00)
[2020-06-03] MEDS: ACETAMINOPHEN 500 MG TABLET (FP) PO SCH ×2 (06:03→13:50)
[2020-06-03] MEDS: INSULIN SLIDING SCALE (NOVOLOG) 1 VIAL SQ SCH ×2 (06:06→11:23)
[2020-06-03 06:48] LABS: BASO % 0.5 % (0-2.0); EOS % 0.1 % (0-4.5); HEMATOCRIT 36.2 % (35.4-49); HEMOGLOBIN 12.1 GM/dL (11.7-16.9); LYMPH % 13.1 % (8-40); MCH 31.4 pg (25.7-33.7); MCHC 33.4 g/dl (32.0-35.9); MEAN CELL VOLUME 94.1 fl (80-96); MEAN PLT VOLUME 9.2 fl (7.5-11.1); MONO % 7.7 % (3.8-10.2); NEUT % 78.6 % (42.8-82.8); PLATELET COUNT 219 K/MM3 (134-434); RBC 3.84 M/mm3 (4.00-5.60); RDW 14.4 % (11.9-15.9); WHITE BLOOD COUNT 8.7 K/mm3 (4.0-10.0)
[2020-06-03 07:07] LABS: POTASSIUM 3.8 mmol/L (3.5-5.1)
[2020-06-03 07:09] LABS: CALCIUM 8.3 mg/dL (8.5-10.1)
[2020-06-03 07:10] LABS: ALBUMIN 2.9 g/dl (3.4-5.0); BLOOD UREA NITROGEN 12.8 mg/dL (7-18); MAGNESIUM 2.1 mg/dL (1.8-2.4)
[2020-06-03 07:13] LABS: CREATININE 0.6 mg/dL (0.55-1.3); PHOSPHOROUS 2.9 mg/dL (2.5-4.9)
[2020-06-03 07:14] LABS: BILIRUBIN,TOTAL 0.2 mg/dL (0.2-1); TOT PROT 5.6 g/dl (6.4-8.2)
[2020-06-03] MEDS: CYCLOBENZAPRINE HCL 5 MG TABLET PO SCH (10:15)
[2020-06-03] MEDS: SACUBITRIL/VALSARTAN 24 MG-26 MG TABLET PO SCH (10:15)
[2020-06-03] MEDS: predniSONE 20 MG TABLET (UD) PO SCH (10:16)
[2020-06-03] MEDS: levETIRAcetam XR 750 MG TAB PO SCH (10:16)
[2020-06-03] MEDS: FUROSEMIDE 40 MG TABLET (FP) PO SCH (10:16)
[2020-06-03] MEDS: TIOTROPIUM BROMIDE 2.5 MCG (SPIRIVA) RESPIMAT INHALER IH SCH (10:19)
[2020-06-03] MEDS: ENOXAPARIN NA (PORCINE) 100 MG/1 ML DISP.SYRIN SQ SCH (10:19)
[2020-06-03] MEDS: traMADol HCL 50 MG TABLET PO PRN (10:28)
[2020-06-03 12:58] VITALS: PULSE 76
[2020-06-03 15:15] VITALS: BP 102/55; TEMP 98.6
== END 2020-06-03 15:45 | disposition home or self-care (01) | DRG 208 ==
LOC: JER 06:24 → JERBED 08:35 → JICU 10:19 → J6WEST-2 05-26 19:00
PROVIDERS: ADMIT Internal Medicine Pulmonary Disease; ATTEND Student in an Organized Health Care Education/Training Program
PROC: 5A1945Z Respiratory Ventilation, 24-96 Consecutive Hours (ICD-10-PCS; principal; 2020-05-23)
PROC: 0BH17EZ Insertion of Endotracheal Airway into Trachea, Via Natural or Artificial Opening (ICD-10-PCS; 2020-05-23)
DX: J96.01 Acute respiratory failure with hypoxia (principal); J13 Pneumonia due to Streptococcus pneumoniae; I26.99 Other pulmonary embolism without acute cor pulmonale; I42.8 Other cardiomyopathies; I50.22 Chronic systolic (congestive) heart failure; C34.90 Malignant neoplasm of unspecified part of unspecified bronchus or lung; J98.11 Atelectasis; J44.9 Chronic obstructive pulmonary disease, unspecified; I44.7 Left bundle-branch block, unspecified; I25.10 Atherosclerotic heart disease of native coronary artery without angina pectoris; Z87.891 Personal history of nicotine dependence; E11.9 Type 2 diabetes mellitus without complications; Z79.84 Long term (current) use of oral hypoglycemic drugs; F19.10 Other psychoactive substance abuse, uncomplicated; G47.33 Obstructive sleep apnea (adult) (pediatric); G47.00 Insomnia, unspecified; E66.9 Obesity, unspecified; Z68.31 Body mass index [BMI] 31.0-31.9, adult; G40.909 Epilepsy, unspecified, not intractable, without status epilepticus; Z86.16 Personal history of COVID-19
CPT/HCPCS: 36415; 70491-TC; 71045-TC-FY; 71275-TC; 80048; 80053; 80307; 81003; 82962; 83605; 83735; 83880; 84100; 84484; 85025; 85610; 85730; 87040; 87070; 87086; 87186; 87205; 87804; 87899; 93005; 93010; 93306-TC; 93970-TC; 94002; 94640; 94660; 97116-GP; 97161-GP; 99285-25; C9803; J0131; Q9967; U0003